=== PATIENT | male | born 1940 | race Caucasian/White ===

== ENCOUNTER 2020-06-08 10:00 | Outpatient (RCR) | payer MEDICARE, SELFPAY ==
--- NOTE | 2020-06-08 12:04 | MHC.PT.DC ---
[facility] [place] Office [place] Office [place] Office [address] Shreya Melendrez [address] [phone] F: [phone] F: [phone] F: [phone] F: [phone] Physical Therapy Discharge Report Diagnosis: Date of Surgery: injury date March 25 2020 shoulder dislocation Date of Evaluation: 05/04/20 Date of Discharge: Treatments to Date: 10 Cancellations to Date: 0 No Shows to Date: 0 Discharge Status: Discharge Summary: Pt has weakness at end range but continues to show improved activity tolerance with exercise program. Abduction and flexion continue to be most difficult. Pt has improved significantly with ROM, strength, and function objectively. At this point the patient has reached a plateau. He no longer needs skilled PT due to being independent with his HEP. He was educated to return to PT if his function does not continue to improve with his HEP. Please sign and return to therapist. Thank you for your referral.
--- NOTE | 2020-06-08 12:08 | MHC.PT.DC ---
[facility] [place] Office [place] Office [place] Office [address] Shreya Melendrez 140 [facility] [phone] F: [phone] F: [phone] F: [phone] F: [phone] Physical Therapy Discharge Report Diagnosis: Date of Surgery: injury date March 25 2020 shoulder dislocation Date of Evaluation: 05/04/20 Date of Discharge: 06/08/20 Treatments to Date: 10 Cancellations to Date: 0 No Shows to Date: 0 Discharge Status: Improved Function Independent with HEP Discharge Summary: AAROM shoulder flexion 132 PROM 145 with pain at end range. AAROM abduction 142, PROM 0-148. MMT shoulder flexion 4+/5, abduction 4/5 Pt has weakness at end range but continues to show improved activity tolerance with exercise program. Abduction and flexion continue to be most difficult. Pt has improved significantly with ROM, strength, and function objectively. At this point the patient has reached a plateau. He no longer needs skilled PT due to being independent with his HEP. He was educated to return to PT if his function does not continue to improve with his HEP. Please sign and return to therapist. Thank you for your referral.
== END 2020-06-29 07:34 | disposition other institution (70) ==
LOC: HO.PT 10:00
PROVIDERS: PCP Internal Medicine; Visit Provider Orthopaedic Surgery
DX: S43.005D Unspecified dislocation of left shoulder joint, subsequent encounter (principal); S46.002D Unspecified injury of muscle(s) and tendon(s) of the rotator cuff of left shoulder, subsequent encounter; X58.XXXD Exposure to other specified factors, subsequent encounter
CPT/HCPCS: 97110; 97530

== ENCOUNTER → 2020-06-19 09:14 | Outpatient (BNVA) | payer MEDICARE, SELFPAY | PROVIDERS: PCP Internal Medicine; Referring Provider Internal Medicine; Visit Provider Orthopaedic Surgery | DX: S43.005D Unspecified dislocation of left shoulder joint, subsequent encounter (principal) | CPT/HCPCS: 99213 ==

== ENCOUNTER 2020-06-30 07:20 | Outpatient (REF) | payer MEDICARE, SELFPAY ==
[2020-06-30 08:07] LABS: MANUAL DIFF FLAG NO
[2020-06-30 08:10] LABS: Basophils Percent Auto 0.7 % (0-2); Eosinophils Absolute Auto 0.1 X10*3/uL (0.0-0.4); Hematocrit 42.1 % (42-52); Hemoglobin 14.3 g/dl (14.0-18.0); Imm Gran Abs Auto 0.01 X10*3/uL (0.00-0.03); Imm Gran Pct Auto 0.2 % (0.0-0.4); Lymphocytes Absolute Auto 1.8 X10*3/uL (1.2-4.9); Lymphocytes Percent Auto 38.7 % (20-40); Mean Corpuscular Hemoglobin 31.1 pg (27.0-33.0); Mean Corpuscular Volume 91.5 fL (80-98); Mean Platelet Volume 9.1 fL (9.4-12.4); Monocytes Absolute Auto 0.6 X10*3/uL (0.1-1.2); Monocytes Percent Auto 13.5 % (2-11); Neutrophils Absolute Auto 2.1 X10*3/uL (2.0-8.3); Neutrophils Percent Auto 44.9 % (45-73); Platelet Count 205 X10*3/uL (160-400); Red Cell Distribution Width 12.6 % (11.0-16.0); White Blood Count 4.6 X10*3/uL (4.8-10.8)
[2020-06-30 08:38] LABS: Alanine Aminotransferase 10 U/L (0-40); Albumin Level 4.1 g/dL (3.5-5.0); Alkaline Phosphatase 50 U/L (39-117); Anion Gap 12 (12-20); Aspartate Amino Transferase 14 U/L (5-37); Bilirubin Total 1.1 mg/dL (0.0-1.0); Blood Urea Nitrogen 14 mg/dL (9-16); Calcium 8.8 mg/dL (8.4-10.2); Carbon Dioxide 27 mmol/L (22-29); Chloride 103 mmol/L (96-108); Cholesterol 188 mg/dL; Estimated Glomerular Filt Rate > 60; Glucose Fasting 105 mg/dL (60-99); HDL Cholesterol 39 mg/dL; LDL Cholesterol Calculated 123 mg/dl; Potassium 4.1 mmol/l (3.3-5.1); Sodium 138 mmol/L (135-145); Total Protein 7.1 g/dL (6.5-8.0); Triglycerides 133 mg/dL
[2020-06-30 08:58] LABS: Thyroid Stimulating Hormone 1.05 mIU/mL (0.32-4.0)
[2020-06-30 08:59] LABS: T4 Thyroxine 7.6 ug/dL (4.5-12.0)
[2020-07-01 07:47] LABS: SARS COV2 IgG Positive (Negative)
[2020-07-02 03:55] LABS: Folate 9.5 ng/mL (> or = 4.0); Vitamin B12 253 pg/mL (200-900)
== END 2020-06-30 07:21 | disposition home or self-care (01) ==
LOC: HO.LAB 07:20
PROVIDERS: Visit Provider Internal Medicine
DX: Z01.84 Encounter for antibody response examination (principal); I10 Essential (primary) hypertension; E78.00 Pure hypercholesterolemia, unspecified; E66.9 Obesity, unspecified
CPT/HCPCS: 36415; 80053; 80061; 82607; 82746; 84436; 84443; 85025; 86769

== ENCOUNTER 2021-05-08 08:18 | Outpatient (REF) | payer MEDICARE, SELFPAY ==
[2021-05-08 08:57] LABS: MANUAL DIFF FLAG NO
[2021-05-08 09:02] LABS: Basophils Percent Auto 0.6 % (0-2); Eosinophils Absolute Auto 0.1 X10*3/uL (0.0-0.4); Eosinophils Percent Auto 1.7 % (0-4); Hematocrit 42.9 % (42-52); Hemoglobin 14.4 g/dl (14.0-18.0); Imm Gran Abs Auto 0.01 X10*3/uL (0.00-0.03); Imm Gran Pct Auto 0.2 % (0.0-0.4); Lymphocytes Absolute Auto 2.1 X10*3/uL (1.2-4.9); Lymphocytes Percent Auto 39.6 % (20-40); Mean Corpuscular HGB Conc 33.6 g/dl (31.0-36.0); Mean Corpuscular Hemoglobin 31.4 pg (27.0-33.0); Mean Corpuscular Volume 93.5 fL (80-98); Mean Platelet Volume 8.8 fL (9.4-12.4); Monocytes Absolute Auto 0.7 X10*3/uL (0.1-1.2); Neutrophils Absolute Auto 2.4 X10*3/uL (2.0-8.3); Neutrophils Percent Auto 44.9 % (45-73); Platelet Count 202 X10*3/uL (160-400); Red Blood Count 4.59 X10*6/uL (4.60-5.80); Red Cell Distribution Width 12.5 % (11.0-16.0); White Blood Count 5.4 X10*3/uL (4.8-10.8)
[2021-05-08 09:36] LABS: Alanine Aminotransferase 15 U/L (0-40); Albumin Level 4.1 g/dL (3.5-5.0); Alkaline Phosphatase 50 U/L (39-117); Anion Gap 10 (12-20); Aspartate Amino Transferase 15 U/L (5-37); Bilirubin Total 0.8 mg/dL (0.0-1.0); Blood Urea Nitrogen 14 mg/dL (9-16); Calcium 9.8 mg/dL (8.4-10.2); Carbon Dioxide 29 mmol/L (22-29); Chloride 106 mmol/L (96-108); Cholesterol 214 mg/dL; Estimated Glomerular Filt Rate > 60; Glucose Random 116 mg/dL (60-115); HDL Cholesterol 42 mg/dL; LDL Cholesterol Calculated 150 mg/dl; Potassium 4.4 mmol/L (3.3-5.1); Sodium 141 mmol/L (135-145); Total Protein 7.2 g/dL (6.5-8.0); Triglycerides 112 mg/dL
[2021-05-08 09:57] LABS: Free T4 (Free Thyroxine) 1.19 ng/dL (0.71-1.85); Thyroid Stimulating Hormone 1.15 uIU/mL (0.32-4.0)
[2021-05-08 10:30] LABS: Estimated Average Glucose 108 mg/dL; Hemoglobin A1c % 5.4 %
[2021-05-08 10:50] LABS: Folate 13.6 ng/mL (> or = 4.0); Vitamin B12 213 pg/mL (200-900)
== END 2021-05-08 08:19 | disposition home or self-care (01) ==
LOC: HO.LAB 08:18
PROVIDERS: PCP Internal Medicine; Visit Provider Internal Medicine
DX: E78.00 Pure hypercholesterolemia, unspecified (principal); R73.02 Impaired glucose tolerance (oral)
CPT/HCPCS: 36415; 80053; 80061; 82607; 82746; 83036; 84439; 84443; 85025

== ENCOUNTER 2021-09-03 10:14 | Outpatient (REF) | payer MEDICARE, SELFPAY ==
[2021-09-03 12:28] LABS: Binax Internal Control QC Valid; Binax Lot number: 9864; Binax Now Covid-19 Ag Negative (Negative)
== END 2021-09-03 10:15 | disposition home or self-care (01) ==
LOC: HO.LAB 10:14
PROVIDERS: Visit Provider Internal Medicine
DX: Z20.822 Contact with and (suspected) exposure to COVID-19 (principal)
CPT/HCPCS: 36415; C9803

== ENCOUNTER 2021-09-09 09:10 | Outpatient (REF) | payer MEDICARE, SELFPAY ==
--- NOTE | ~2021-09-09 | XR_ITS ---
EXAMINATION: XR SHOULDER, LEFT CLINICAL INFORMATION: Pain COMPARISON: Previous x-ray most recent February 2020 TECHNIQUE: Three views of the left shoulder. FINDINGS: Bone alignment is normal. No fracture or dislocation is seen. There are 2 surgical tacks or anchors projecting over the left proximal humerus. There are small osteophytes at the glenohumeral and acromioclavicular joints. There is faint soft tissue calcification adjacent to the greater tuberosity. XR/XR shoulder LT min 2V IMPRESSION: Stable postsurgical changes and mild degenerative changes.
== END 2021-09-09 09:11 | disposition home or self-care (01) ==
LOC: HO.HOSX 09:10
PROVIDERS: Visit Provider Orthopaedic Surgery
DX: M12.812 Other specific arthropathies, not elsewhere classified, left shoulder (principal)
CPT/HCPCS: 73030; 99212

== ENCOUNTER 2021-11-14 13:03 | Outpatient (REF) | payer MEDICARE, SELFPAY ==
[2021-11-14 14:43] LABS: Alanine Aminotransferase 15 U/L (0-40); Albumin Level 4.2 g/dL (3.5-5.0); Alkaline Phosphatase 54 U/L (39-117); Anion Gap 12 (12-20); Aspartate Amino Transferase 14 U/L (5-37); Bilirubin Total 0.6 mg/dL (0.0-1.0); Blood Urea Nitrogen 14 mg/dL (9-16); Calcium 9.6 mg/dL (8.4-10.2); Carbon Dioxide 27 mmol/L (22-29); Chloride 104 mmol/L (96-108); Cholesterol 179 mg/dL; Estimated Glomerular Filt Rate > 60; Glucose Random 89 mg/dL (60-115); HDL Cholesterol 37 mg/dL; LDL Cholesterol Calculated 90 mg/dl; Potassium 4.4 mmol/L (3.3-5.1); Sodium 139 mmol/L (135-145); Total Protein 7.3 g/dL (6.5-8.0); Triglycerides 262 mg/dL
[2021-11-14 15:10] LABS: Folate 12.1 ng/mL (> or = 4.0); Vitamin B12 340 pg/mL (200-900)
== END 2021-11-14 13:04 | disposition home or self-care (01) ==
LOC: HO.LAB 13:03
PROVIDERS: PCP Internal Medicine; Visit Provider Internal Medicine
DX: E78.00 Pure hypercholesterolemia, unspecified (principal)
CPT/HCPCS: 36415; 80053; 80061; 82607; 82746

== ENCOUNTER 2022-08-12 09:29 | Outpatient (REF) | payer MEDICARE, SELFPAY ==
[2022-08-12 09:47] LABS: MANUAL DIFF FLAG NO
[2022-08-12 10:27] LABS: Basophils Percent Auto 0.4 % (0-2); Eosinophils Absolute Auto 0.1 X10*3/uL (0.0-0.4); Eosinophils Percent Auto 2.7 % (0-4); Hematocrit 43.4 % (42.0-52.0); Hemoglobin 14.5 g/dl (14.0-18.0); Imm Gran Abs Auto 0.01 X10*3/uL (0.00-0.03); Imm Gran Pct Auto 0.2 % (0.0-0.4); Lymphocytes Absolute Auto 1.5 X10*3/uL (1.2-4.9); Lymphocytes Percent Auto 33.2 % (20-40); Mean Corpuscular HGB Conc 33.4 g/dl (31.0-36.0); Mean Corpuscular Hemoglobin 30.9 pg (27.0-33.0); Mean Corpuscular Volume 92.5 fL (80.0-98.0); Mean Platelet Volume 9.2 fL (9.4-12.4); Monocytes Absolute Auto 0.7 X10*3/uL (0.1-1.2); Monocytes Percent Auto 14.4 % (2-11); Neutrophils Absolute Auto 2.2 x10*3/uL (2.0-8.3); Neutrophils Percent Auto 49.1 % (45-73); Platelet Count 198 X10*3/uL (160-400); Red Blood Count 4.69 X10*6/uL (4.60-5.80); Red Cell Distribution Width 12.5 % (11.0-16.0); White Blood Count 4.5 X10*3/uL (4.8-10.8)
[2022-08-12 10:40] LABS: Estimated Average Glucose 111 mg/dL; Hemoglobin A1c % 5.5 %
[2022-08-12 11:22] LABS: Alanine Aminotransferase 12 U/L (0-40); Albumin Level 4.2 g/dL (3.5-5.0); Alkaline Phosphatase 56 U/L (39-117); Anion Gap 12 (12-20); Aspartate Amino Transferase 15 U/L (5-37); Bilirubin Total 0.6 mg/dL (0.0-1.0); Blood Urea Nitrogen 14 mg/dL (9-16); Calcium 9.5 mg/dL (8.4-10.2); Carbon Dioxide 30 mmol/L (22-29); Chloride 104 mmol/L (96-108); Cholesterol 162 mg/dL; Estimated Glomerular Filt Rate > 60; Glucose Random 69 mg/dL (60-115); HDL Cholesterol 35 mg/dL; LDL Cholesterol Calculated 104 mg/dl; Potassium 4.6 mmol/L (3.3-5.1); Sodium 141 mmol/L (135-145); Triglycerides 117 mg/dL
[2022-08-12 11:29] LABS: Vitamin B12 359 pg/mL (200-900)
== END 2022-08-12 09:30 | disposition home or self-care (01) ==
LOC: HO.LAB 09:29
PROVIDERS: PCP Internal Medicine; Visit Provider Internal Medicine
DX: R73.02 Impaired glucose tolerance (oral) (principal); I10 Essential (primary) hypertension; E78.00 Pure hypercholesterolemia, unspecified
CPT/HCPCS: 36415; 80053; 80061; 82607; 82746; 83036; 84443; 85025

== ENCOUNTER 2023-03-18 10:36 | Emergency (ER) | payer MEDICARE, SELFPAY ==
--- NOTE | ~2023-03-18 | XR_ITS ---
EXAMINATION: XR LUMBOSACRAL SPINE CLINICAL INFORMATION: Back pain COMPARISON: None available. TECHNIQUE: Three views of the lumbosacral spine. FINDINGS: Normal alignment and lumbar lordosis. No fracture. Mild to moderate multilevel degenerative disc disease with prominent endplate osteophytes. XR/XR lumbar spine 2-3V IMPRESSION: Mild to moderate multilevel degenerative disc disease. Normal alignment. No fracture.
[2023-03-18 10:41] VITALS: BP 140/76; PULSE 64; RESP 18; TEMP 37.1; O2SAT 98; BMI 29.8
--- NOTE | 2023-03-18 11:25 | ED_ITS ---
HPI - General Adult General Chief complaint: Back Pain/Injury Stated complaint: Lower Back Pain No Injury Time Seen by Provider: 03/18/23 11:25 Source: patient Mode of arrival: ambulatory Limitations: no limitations History of Present Illness HPI narrative: Patient is an 82 year old assigned male at with a history of HTN presenting to the emergency department today with low back pain. Patient states that he just got back from a visit to [place] that involved a lot of driving and his low back has been painful. Patient denies any dizziness, lightheadedness, abdominal pain, nausea, vomiting, fever, chills, blurry vision, double vision, loss of vision, chest pain, difficulty breathing, shortness of breath, night sweats, pain with urination, increased urinary frequency, increased urinary urgency, blood in his urine or stool, syncope or a near syncopal episode, recent trauma or falls, bowel incontinence, bladder incontinence, bowel retention, bladder retention, or any other complaints at this time. Onset (ago): day(s) (4) Location: back Radiation: non-radiation Severity: mild Severity scale (1-10): 3 Quality: aching and dull Pain Consistency: constant Relieving factors: none Exacerbating factors: movement Associated symptoms: denies other symptoms Treatments prior to arrival: none Related Data Previous Rx's Medication Instructions Recorded metoprolol succinate 25 mg 25 mg PO DAILY #90 tabs 08/12/22 tablet,extended release 24 hr metoprolol succinate 50 mg 50 mg PO DAILY 90 days #90 tabs 08/12/22 tablet,extended release 24 hr lisinopril 40 mg tablet 40 mg PO DAILY #90 tabs 10/14/22 simvastatin 20 mg tablet 20 mg PO BEDTIME #90 tabs 10/14/22 cyclobenzaprine 5 mg tablet 5 mg PO TID PRN muscle spasm 7 03/18/23 days #21 tabs naproxen 500 mg tablet 500 mg PO BID 7 days #14 tabs 03/18/23 prednisone 20 mg tablet 20 mg PO DAILY 7 days #7 tabs 03/18/23 Allergies Allergy/AdvReac Type Severity Reaction Status Date / Time No Known Allergies Allergy Mild NKA Verified 12/04/22 10:25 Review of Systems Constitutional: Constitutional: Reports no additional constitutional complaints, Denies chills, Denies fever(s) and Denies night sweats Eyes: Eyes: Reports no additional eye complaints, Denies blurry vision, Denies change in vision, Denies diplopia, Denies eye discharge, Denies loss of vision and Denies eye pain ENT: Denies dizziness Cardiovascular: Cardiovascular: Reports no additional cardiovascular complaints, Denies chest pain, Denies lightheadedness, Denies Loss of Consciousness and Denies dyspnea Respiratory: Respiratory: Reports no additional respiratory complaints and Denies dyspnea Gastrointestinal: Gastrointestinal: Reports no additional gastrointestinal complaints, Denies abdominal pain, Denies melena, Denies hematochezia, Denies change in bowel habits and Denies change in stool character Genitourinary: Genitourinary: Reports no additional male genitourinary complaints, Denies hematuria, Denies oliguria, Denies difficulty urinating, Denies dysuria, Denies urinary frequency, Denies urinary hesitancy, Denies urinary incontinence and Denies urinary urgency Musculoskeletal: Musculoskeletal: Reports no additional musculoskeletal complaints, Reports back pain, Denies numbness and Denies tingling Neurologic: Denies dizziness, Denies loss of vision, Denies numbness and Denies tingling Psychiatric: Psychiatric: Reports no additional psychiatric complaints Endocrine: Endocrine: Reports no additional endocrine complaints Hematologic/Lymphatic: Hematologic/Lymphatic: Reports no additional hematologic/lymphatic complaints Allergic/Immunologic: Allergic/Immunologic: Reports no additional allergic/immunologic complaints PMF Past Medical History Attestation statement: The following information was validated with the patient. Source: old records reviewed and nursing notes reviewed Medical History Annual physical exam Anxiety and depression Bilateral shoulder pain COVID-19 virus infection Dislocation of shoulder, left, closed Erectile dysfunction Hypercholesterolemia Hypertension Impaired glucose tolerance Low back pain Obesity (BMI 30-39.9) Rotator cuff rupture Tubular adenoma of colon Urinary frequency Vitamin D deficiency Surgical History H/O left knee surgery H/O prostatectomy History of rhinoplasty History of tonsillectomy S/P rotator cuff repair Family History Family History Father Acute leukemia Mother No problems noted. Social History Social History Housing: House Alcohol intake: former Patient Tobacco Use Status: Never used Tobacco Smoked in Last 30 Days: No e-Cigarette/Vaping Use: Never Used Second Hand Smoke Exposure: No Use of substances other than those prescribed or required for medical reasons: No Advance Directives: Yes Advance Directives on File: Yes Advance Directives Date on File: 06/01/20 Current occupational status: retired Cognitive needs: No Hearing needs: No Vision needs: No Physical Exam ED Vital Signs: Vital Signs - 24 hr 03/18/23 10:41 03/18/23 13:24 Temperature 98.7 F 97.1 F Pulse Rate 64 68 Respiratory Rate 18 16 Blood Pressure 140/76 H 137/91 H Pulse Oximetry 98 98 Oxygen Delivery Method Room Air Room Air BMI result Body Mass Index 29.8 Const General: cooperative, no acute distress, alert and awake Nutritional Appearance: well nourished Orientation/consciousness: patient oriented x3 Limitations: no limitations HENMT Head: Yes normal to inspection and Yes atraumatic Ears: hearing grossly normal bilaterally and external ears normal General nose exam: Normal external nose present, no nasal discharge noted and no epistaxis Face and sinus: Yes normal facial exam, No abrasion and No laceration Mouth: Normal oral and palatal mucosa present, no drooling and no muffled voice Eyes General: appearance normal, both eyes and all related structures Periorbital: periorbital findings normal Eyelids: Yes eyelids normal Conjunctivae: conjunctivae normal Pupils: Equal, round and reactive pupils present EOM: EOMs intact bilaterally Neck Neck: Yes normal visual inspection, Yes full ROM and Yes no lymphadenopathy Chest Chest palpation & inspection: normal inspection of the chest Resp Effort & Inspection: normal respiratory effort and able to speak in complete sentences GI Inspection: Yes normal to inspection General: Yes no CVA tenderness Back/Spine/Pelvis Back: no CVA tenderness Cervical Spine: normal cervical lordosis and cervical ROM normal Thoracic/Lumbar Spine: thoraco-lumbar ROM normal Neuro General: patient oriented x3 and moves all extremities Cranial nerves: Yes Equal, round and reactive pupils present Cognition (Neuro): normal cognition Motor exam (neuro): 5/5 motor strength present throughout Sensory Exam: Normal double simultaneous stimulation for sensation Coordination: [id number] test normal Extrem General: Yes normal to inspection, Yes full ROM and Yes capillary refill normal Psych Appearance: grossly normal Mental Status: mental status grossly normal Affect: normal affect Attitude: cooperative Thought process: Normal thought process present Thought content: Normal thought content present Insight: Good insight present (Psych) Medications Administered Discontinued Medications Generic Name Dose Route Start Last Admin Trade Name Luis PANTOJA Reason Stop Dose Admin Cyclobenzaprine HCl 5 mg 03/18/23 13:05 03/18/23 13:17 Cyclobenzaprine Hcl 5 Mg Tablet PO 03/18/23 13:06 5 mg ONCE ONE Administration Ketorolac Tromethamine 15 mg 03/18/23 13:05 03/18/23 13:37 Ketorolac Tromethamine 15 Mg/Ml Vial IM 03/18/23 13:06 Not Given ONCE ONE Prednisone 20 mg 03/18/23 13:05 03/18/23 13:17 Prednisone 20 Mg Tablet PO 03/18/23 13:06 20 mg ONCE ONE Administration Medical Decision Making Medical Decision Making MDM Narrative: Patient is an 82 year old assigned male at with a history of HTN presenting to the emergency department today with low back pain. Patient's physical exam was unremarkable. Patient's lumbar spine x-ray showed no acute process. I explained my physical exam findings as well as all test results to the patient. I answered all questions asked by the patient. Patient received PO Flexeril and PO Prednisone which he stated helped his symptoms significantly. I stressed the importance of the patient taking his medication as prescribed. I stressed the importance of the patient following up with his primary care provider. I stressed the importance of the patient returning to the emergency department immediately if his symptoms were to worsen or if he were to develop any dizziness, shortness of breath, difficulty breathing, chest pain, blurry vision, loss of vision, nausea, vomiting, abdominal pain, fever, chills, worsening back pain, or any other complaints. Patient verbalized agreement and understanding with this treatment plan and discharge. Differential Diagnosis Differential Diagnoses: The differential diagnosis associated with the presentation includes Low back pain Muscle sprain Muscle strain Sciatica Osteoarthritis Degenerative disc disease Herniated disc Muscle spasm Independent Interpretation I performed an independent interpretation of an: Plain X-Ray Interpretation: My interpretation is in agreement with the radiologist's impression of this imaging study. EXAMINATION: XR LUMBOSACRAL SPINE CLINICAL INFORMATION: Back pain COMPARISON: None available. TECHNIQUE: Three views of the lumbosacral spine. FINDINGS: Normal alignment and lumbar lordosis. No fracture. Mild to moderate multilevel degenerative disc disease with prominent endplate osteophytes. XR/XR lumbar spine 2-3V IMPRESSION: Mild to moderate multilevel degenerative disc disease. Normal alignment. No fracture. Dictated By: Vignesh Black MD Signed By: Electronically signed by Vignesh Black MD 03/18/23 5478 Radiology Impression Discussion of test interpretation with radiology: I have reviewed the radiologist's reading. Prescription Management I considered prescription management with: Pain Medication (patient prescribed flexeril and prednisone.) Chronic Conditions Patient?s care impacted by: Hypertension Discharge Plan Discharge Clinical Impression: Low back pain Patient Disposition: Home, Self-Care Instructions: Back Pain (ED) Additional Instructions: Follow up with your primary care provider. Return to the emergency department immediately if your symptoms worsen or if you develop any dizziness, shortness of breath, difficulty breathing, chest pain, blurry vision, loss of vision, naus ea, vomiting, abdominal pain, fever, chills, back pain, or any other complaints. Prescriptions: New cyclobenzaprine 5 mg tablet 5 mg PO TID PRN (Reason: muscle spasm) 7 Days Qty: 21 0RF prednisone 20 mg tablet 20 mg PO DAILY 7 Days Qty: 7 0RF naproxen 500 mg tablet 500 mg PO BID 7 Days Qty: 14 0RF No Action lisinopril 40 mg tablet 40 mg PO DAILY Qty: 90 2RF simvastatin 20 mg tablet 20 mg PO BEDTIME Qty: 90 3RF metoprolol succinate 25 mg tablet extended release 24 hr 25 mg PO DAILY Qty: 90 3RF Rx Instructions: Take 25 mg together with 50 mg equal 75 mg metoprolol succinate 50 mg tablet extended release 24 hr 50 mg PO DAILY 90 Days Qty: 90 3RF Rx Instructions: 50 mg + 25 mg = 75 mg QD Referrals: Cody Boston MD [Primary Care Provider] - Interventions: ED Discharge Assessment Last Done: 03/18/23 13:37 Discharge Date/Time: 03/18/23 13:37 Print Language: Icelandic
[2023-03-18] MEDS: Cyclobenzaprine HCl 5 MG TABLET PO (13:17)
[2023-03-18] MEDS: predniSONE 20 MG TABLET PO (13:17)
[2023-03-18 13:24] VITALS: BP 137/91; PULSE 68; RESP 16; TEMP 36.2; O2SAT 98
== END 2023-03-18 13:37 | disposition home or self-care (01) ==
PROVIDERS: Emergency Provider Emergency Medicine; PCP Internal Medicine
DX: M54.50 Low back pain, unspecified (principal)
CPT/HCPCS: 72100; 99283; 99284; J1885

== ENCOUNTER 2023-04-08 07:22 | Emergency (ER) | payer MEDICARE, SELFPAY ==
--- NOTE | ~2023-04-08 | XR_ITS ---
EXAMINATION: XR HIP, RIGHT CLINICAL INFORMATION: Right hip pain COMPARISON: None available. TECHNIQUE: 2 views of the right hip single view of the pelvis FINDINGS: No acute visible fracture or dislocation. 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 Suggestion of a 6 mm loose body along the superolateral margin of the right femoral acetabular joint. Degenerative changes of the lower and lumbar lumbosacral spine. Bowel gas unremarkable. Pelvic phleboliths are noted. Soft tissues are unremarkable. XR/XR hip RT w PEL1V IMPRESSION: 1. No acute visible fracture or dislocation. 2. 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 3. Suggestion of a 6 mm loose body along the superolateral margin of the right femoral acetabular joint.
[2023-04-08 07:54] VITALS: BP 134/83; PULSE 71; RESP 18; TEMP 36.7; O2SAT 97; BMI 30.5
[2023-04-08 08:05] VITALS: BP 134/83; PULSE 94; RESP 18
--- NOTE | 2023-04-08 08:07 | PC.NURSE ---
Patient alert and oriented. states yesterday morning started having right hip/groin pain. was here x 1 month ago for same pain. States walked all over [place] yesterday and pain became worse. States pain is only on the right side of his hip and extends into his groin area. Gait steady, able to stand on left leg and raise right leg. Denies sob, headache, chest pain.
--- NOTE | 2023-04-08 08:36 | ED_ITS ---
[facility] - General Adult General Chief complaint: General Medical Stated complaint: R side back pain/leg pain Time Seen by Provider: 04/08/23 07:55 Source: patient Mode of arrival: ambulatory History of Present Illness HPI narrative: 82-year-old male who presents here with atraumatic right gluteal/hip discomfort that is not associated with fever, chills, nausea, vomiting, changes in urinary symptoms, constipation/diarrhea. Related Data Previous Rx's Medication Instructions Recorded metoprolol succinate 25 mg 25 mg PO DAILY #90 tabs 08/12/22 tablet,extended release 24 hr metoprolol succinate 50 mg 50 mg PO DAILY 90 days #90 tabs 08/12/22 tablet,extended release 24 hr lisinopril 40 mg tablet 40 mg PO DAILY #90 tabs 10/14/22 simvastatin 20 mg tablet 20 mg PO BEDTIME #90 tabs 10/14/22 cyclobenzaprine 5 mg tablet 5 mg PO TID PRN muscle spasm 7 03/18/23 days #21 tabs naproxen 500 mg tablet 500 mg PO BID 7 days #14 tabs 03/18/23 prednisone 20 mg tablet 20 mg PO DAILY 7 days #7 tabs 03/18/23 Allergies Allergy/AdvReac Type Severity Reaction Status Date / Time No Known Allergies Allergy Mild NKA Verified 04/08/23 07:57 Review of Systems Review of Systems: Pertinent positives and negatives as stated in [facility] Past Medical History Source: nursing notes reviewed Medical History Annual physical exam Anxiety and depression Bilateral shoulder pain COVID-19 virus infection Dislocation of shoulder, left, closed Erectile dysfunction Hypercholesterolemia Hypertension Impaired glucose tolerance Low back pain Obesity (BMI 30-39.9) Rotator cuff rupture Tubular adenoma of colon Urinary frequency Vitamin D deficiency Surgical History H/O left knee surgery H/O prostatectomy History of rhinoplasty History of tonsillectomy S/P rotator cuff repair Family History Family History Father Acute leukemia Mother No problems noted. Social History Social History Housing: House Alcohol intake: former Patient Tobacco Use Status: Never used Tobacco e-Cigarette/Vaping Use: Never Used Second Hand Smoke Exposure: No Advance Directives: Yes Advance Directives on File: Yes Advance Directives Date on File: 06/01/20 Current occupational status: retired Cognitive needs: No Hearing needs: No Vision needs: No Physical Exam ED Vital Signs: Vital Signs - 24 hr 04/08/23 07:54 04/08/23 08:05 Temperature 98.0 F Pulse Rate 71 94 Respiratory Rate 18 18 Blood Pressure 134/83 134/83 Pulse Oximetry 97 Oxygen Delivery Method Room Air Room Air Nasal Cannula BMI result Body Mass Index 30.5 VITAL SIGNS: Reviewed. GENERAL: Well developed, well nourished, in no acute distress. HEAD: Normocephalic/atraumatic EYES: PERRLA, EOMI EARS: Ext canals without abnormality NOSE: Nares patent bilateral OROPHARYNX: no oral lesions noted, posterior pharynx clear NECK: Supple, no adenopathy LUNGS: Normal breath sounds. No adventitious sounds or accessory muscle use. SpO2<97> CARDIOVASCULAR: Regular rate and rhythm without noted murmurs, no JVD or lower extremity edema. ABDOMEN: Soft, non-tender, non-distended with bowel sounds. PELVIS: Stable, nontender, no tenderness to palpation over right iliac. MUSCULOSKELETAL: No tenderness, deformities, or effusions noted on gross i nspection. EXTREMITIES: No cyanosis, clubbing or edema. RLE: There is or tenderness over the superior gluteus as well as greater trochanter, there is full range of motion at the hip and knee without difficulty SKIN: Inspection of the skin reveals no rashes NEUROLOGIC: Alert and oriented x 4. Strength and sensation to light touch were grossly intact x 4. Medications Administered Discontinued Medications Generic Name Dose Route Start Last Admin Trade Name Freq PRN Reason Stop Dose Admin Acetaminophen 975 mg 04/08/23 08:25 04/08/23 08:41 Acetaminophen 325 Mg Tablet PO 04/08/23 08:26 975 mg ONCE ONE Administration Ibuprofen 400 mg 04/08/23 08:25 04/08/23 08:41 Ibuprofen 400 Mg Tablet PO 04/08/23 08:26 400 mg ONCE ONE Administration Lidocaine 1 patch 04/08/23 08:25 04/08/23 08:41 Lidocaine 4 % Patch Adh..Patch TRANSDERMA 04/08/23 08:26 1 patch ONCE ONE Administration Protocol Medical Decision Making Medical Decision Making [facility] Narrative: 82-year-old male with history and clinical presentation, DDX: Arthritis, bursitis, musculoskeletal, lumbar radiculopathy, less likely felt to be sciatica and no clinical suspicion for infectious etiologies such as diverticulitis /appendicitis/bowel obstruction/hernia. I reviewed all investigations, urinalysis is negative for evidence of UTI trace positive blood likely secondary to prostatic mild bleeding, hip/pelvis x-ray ne gative for fracture or dislocation, however my interpretation is in agreement with radiology's impression that there does appear to be a loose body within the superior lateral margin of the right femoral acetabular joint that may be contributing to patient's symptoms although on palpation he has point tenderness at the mid superior gluteus. Will provide patient with referral to his primary care doctor as well as Orthopedics. Patient was given combination analgesics and is otherwise discharged home and results were discussed with him at bedside. Differential Diagnosis Differential Diagnoses: The differential diagnosis associated with the presentation includes Please see the discussion above Admission/Observation Consideration of admission/observation: Escalation of care including admission/observation considered Please see the discussion above Lab Data [facility] Lab Attestation statement: I reviewed the patient's lab results. Please see the discussion above Labs: Lab Results 04/08/23 Range/Units 08:31 Urine Color Yellow Urine Appearance Clear Urine pH 5.5 (5.0-9.0) Ur Specific [place] 1.015 (1.005-1.025) Urine Protein Negative (Neg-Trace) mg/dL Urine Glucose (UA) Negative (Negative) mg/dL Urine Ketones Negative (Negative) mg/dL Urine Blood Small (1+) H (Negative) Urine Nitrite Negative (Negative) Ur Leukocyte Esterase Negative (Negative) Urine RBC 0-2 (0-2) /HPF Urine WBC 0-5 (0-5) /HPF Ur Squamous Epith Cells 0-2 (0-2) /HPF Urine Bacteria None Seen (None Seen) Hyaline Casts 0-2 (0-2) /LPF Radiology Impression Discussion of test interpretation with radiology: I have reviewed the radiologist's reading. Radiologist Impression: Please see the discussion above External Record Review External record reviewed: Outpatient record and Prior outpatient labs Chronic Conditions Patient?s care impacted by: Hypertension Discharge Plan Discharge Clinical Impression: Arthritis, hip Patient Disposition: Home, Self-Care Instructions: Osteoarthritis (ED) Additional Instructions: It appears you may have a loose foreign body in portion of your hip joint, you will need to follow-up with your primary care provider and a referral for Orthopedics is been provided below. In the meantime please take [id number] Tylenol/ibuprofen and consider the use of a lidocaine patch (this is available [id number] as well) for pain relief. Return to the ER for any worsening symptoms. Prescriptions: No Action lisinopril 40 mg tablet 40 mg PO DAILY Qty: 90 2RF simvastatin 20 mg tablet 20 mg PO BEDTIME Qty: 90 3RF cyclobenzaprine 5 mg tablet 5 mg PO TID PRN (Reason: muscle spasm) 7 Days Qty: 21 0RF prednisone 20 mg tablet 20 mg PO DAILY 7 Days Qty: 7 0RF naproxen 500 mg tablet 500 mg PO BID 7 Days Qty: 14 0RF metoprolol succinate 25 mg tablet extended release 24 hr 25 mg PO DAILY Qty: 90 3RF Rx Instructions: Take 25 mg together with 50 mg equal 75 mg metoprolol succinate 50 mg tablet extended release 24 hr 50 mg PO DAILY 90 Days Qty: 90 3RF Rx Instructions: 50 mg + 25 mg = 75 mg QD Referrals: Po,Cody Virk MD [Primary Care Provider] - Gustavo Gonzales MD [Physician] -
[2023-04-08] MEDS: Ibuprofen 400 MG TABLET PO (08:41)
[2023-04-08] MEDS: Acetaminophen 325 MG TABLET 975 MG PO (08:41)
[2023-04-08] MEDS: Lidocaine 4 % Patch ADH..PATCH 1 PATCH TRANSDERMA (08:41)
[2023-04-08 08:48] LABS: Appearance Urine Clear; Color Urine Yellow; Glucose Urine UA Negative (Negative); Leukocyte Esterase Urine Negative (Negative); Nitrite Urine Negative (Negative); PH 5.5 (5.0-9.0); Specific Gravity - Urine 1.015 (1.005-1.025); UMIC TRIGGER UACC YES; Urine Blood Small (1+) (Negative); Urine Ketones Negative (Negative); Urine Protein Negative (Neg-Trace)
[2023-04-08 08:56] LABS: Bacteria Urine None Seen (None Seen); Hyaline Casts Urine 0-2 /LPF (0-2); RBC Urine 0-2 /HPF (0-2); Squamous Epithelial Cell Urine 0-2 /HPF (0-2); WBC Urine 0-5 /HPF (0-5)
--- NOTE | 2023-04-08 09:49 | PC.NURSE ---
Discharge plan reviewed with patient who verbalized understanding understanding
== END 2023-04-08 09:54 | disposition home or self-care (01) ==
PROVIDERS: Emergency Provider Student in an Organized Health Care Education/Training Program; PCP Internal Medicine
DX: M54.50 Low back pain, unspecified (principal); M16.11 Unilateral primary osteoarthritis, right hip; Z79.899 Other long term (current) drug therapy
CPT/HCPCS: 73502; 81001; 99283; 99284

== ENCOUNTER 2023-04-14 08:57 | Outpatient (AMB) | payer MEDICARE, SELFPAY ==
[2023-04-14 09:28] VITALS: BMI 30.5
--- NOTE | 2023-04-14 09:28 | A.OFFVIS_ITS ---
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 The patient did undergo left total hip replacement surgery years ago by Dr. Dale. He reports minimal discomfort in his left knee. He describes his right knee pain as severe and sharp in nature, 10/10. His right knee pain has gotten worse over the last few years in spite of continued non operative treatments. He has done physical therapy for 12 weeks over the last 6 months which aggravated his pain. He has also tried Tylenol and anti-inflammatory medicines which gave him minimal relief. He has had multiple injections. The most recent injection gave him no relief. The patient also reports intermittent discomfort along the lateral aspect of his right hip. He denies any locking or giving way. He states that this point his hip discomfort is tolerable to him. The patient has difficulty walking even short distances because of his right knee pain. At this point his right knee is interfering with his activities of daily living and his ability to sleep well through Allergies No Known Allergies Allergy (Mild, Verified 04/14/23 09:41) NKA Medication List - Last Reconciled 04/14/23 by Gustavo Gonzales MD cyclobenzaprine 5 mg PO TID PRN 7 days lisinopril 40 mg PO DAILY metoprolol succinate ER 25 mg PO DAILY metoprolol succinate ER 50 mg PO DAILY 90 days naproxen 500 mg PO BID 7 days prednisone 20 mg PO DAILY 7 days simvastatin 20 mg PO BEDTIME [facility] Medical History Annual physical exam Anxiety and depression Bilateral shoulder pain COVID-19 virus infection Dislocation of shoulder, left, closed Erectile dysfunction Hypercholesterolemia Hypertension Impaired glucose tolerance Low back pain Obesity (BMI 30-39.9) Rotator cuff rupture Tubular adenoma of colon Urinary frequency Vitamin D deficiency Surgical History H/O left knee surgery H/O prostatectomy History of rhinoplasty History of tonsillectomy S/P rotator cuff repair Family History Father Acute leukemia Mother No problems noted. Social History Housing: House Alcohol intake: former Patient Tobacco Use Status: Never used Tobacco e-Cigarette/Vaping Use: Never Used Second Hand Smoke Exposure: No Advance Directives Date on File: 06/01/20 Current occupational status: retired Cognitive needs: No Hearing needs: No Vision needs: No Physical Exam Vital Signs: BMI result Body Mass Index 30.5 Const Other: Well-nourished well-developed very friendly male awake alert and oriented x3 in no acute distress Extrem Other: Bilateral lower extremity examination shows good capillary refill, no skin lesions noted, normal sensation light touch Right hip examination shows minimal discomfort with range of motion, tenderness over his bursa, no overlying skin lesions Right knee examination shows a mild effusion, palpable crepitus with range of motion, pain with range of motion, range of motion from -3 degrees to 115 degrees, no instability Results Reviewed Results Reviewed: X-rays of the patient's right hip taken on 04/08/2023 show mild diffuse joint space narrowing, no acute bony abnormalities X-rays of the patient's right knee taken today show severe joint space narrowing most significant in the patellofemoral joint, subchondral sclerosis, no acute bony abnormalities Assessment & Plan Assessment & Plan (1) Arthritis of right knee: Code(s): M17.11 - Unilateral primary osteoarthritis, right knee Plan: Mr. Mathews presents with right knee pain due to end-stage degenerative joint disease as well as right hip discomfort due to greater trochanteric bursitis. I had a lengthy discussion with the patient regarding the treatment options. At this point the patient has failed continued non operative treatments. The risks and benefits of right total knee replacement surgery were discussed at length with the patient. We had a discussion regarding implant in bearing options. We had a detailed discussion of the advantages and limitations of the specific implant designs, materials and bearing surfaces. All questions were answered to the patient's satisfaction. The patient wishes to proceed with surgery. Because the patient's symptoms are severe and intractable we will schedule surgery for as soon as possible. Coronavirus precautions will be taken. I will see the patient back 2-3 weeks following his surgery for his 1st postoperative appointment. The patient will follow-up as instructed. Feel free to call me at any time should questions regarding his orthopedic management arise. Thank you very much for asking me to see this very friendly patient. I spent 22 minutes in reviewing the patient's records and imaging studies, seeing the patient and documenting in the medical record. Orders: Orders XR knee RT 3V Today M17.11 - Unilateral primary osteoarthritis, right knee Coding Level of Care Code New Pt Level 2 (80500) Diagnoses Arthritis of right knee M17.11
== END 2023-04-14 10:19 | disposition home or self-care (01) ==
PROVIDERS: PCP Internal Medicine; Visit Provider Orthopaedic Surgery
DX: M17.11 Unilateral primary osteoarthritis, right knee (principal)
CPT/HCPCS: 99202

== ENCOUNTER 2023-04-14 08:57 | Outpatient (REF) | payer MEDICARE, SELFPAY ==
--- NOTE | ~2023-04-14 | XR_ITS ---
EXAMINATION: XR KNEE, RIGHT CLINICAL INFORMATION: Unilateral primary osteoarthritis. COMPARISON: None available. TECHNIQUE: AP, lateral and sunrise views of the right knee are submitted. FINDINGS: Bony alignment and mineralization are normal. The lateral, medial and patellofemoral joint space compartments are well-maintained. There is no fracture, dislocation or significant joint effusion. No foreign body is seen. There are atherosclerotic calcifications. XR/XR knee RT 3V IMPRESSION: Unremarkable right knee.
== END 2023-04-14 08:58 | disposition home or self-care (01) ==
LOC: HO.HOSX 08:57
PROVIDERS: PCP Internal Medicine; Visit Provider Orthopaedic Surgery
DX: M17.11 Unilateral primary osteoarthritis, right knee (principal)
CPT/HCPCS: 73562; 99202

== ENCOUNTER → 2023-04-29 12:36 | Outpatient (BNVA) | payer MEDICARE, SELFPAY | PROVIDERS: PCP Internal Medicine; Visit Provider Orthopaedic Surgery ==

== ENCOUNTER 2023-05-21 10:54 | Outpatient (AMB) | payer MEDICARE, SELFPAY ==
[2023-05-21 11:02] VITALS: BMI 30.5
--- NOTE | 2023-05-21 11:02 | MHC.OFFVIS ---
Intake Vital Signs 05/21/23 11:02 Height 6 ft Weight 225 lb BMI 30.5 Intake Visit Reasons: Preop RT TKA 05/25/23 DR Finch Note: Saulo is a 82 year old male who presents today for a pre op appointment for his right TKA, 05/25/23 Patient reports - . Allergies No Known Allergies Allergy (Mild, Verified 05/21/23 11:09) JOHNNIE BOBBY Preop RT TKA 05/25/23 DR BOBBY Details 82-year-old male who presents in the office today for his preoperative history and physical exam prior to a right total knee arthroplasty to be performed on 05/25/[address] Gonzales. Patient states he discontinued drinking beer about 6-7 years ago. Patient has no known allergy history. Patient is currently taking, as follows: -Acetaminophen 650 mg PO Q6H PRN -Lisinopril 40 mg PO daily -Metoprolol succinate ER 75 mg PO daily -Simvastatin 20 mg PO daily Patient has a medical history, as follows: -Blind left eye -Anxiety -Depression -Vitamin D deficiency -Tubular adenoma of colon -Hypercholesterolemia -Hypertension -Erectile dysfunction Patient has a surgical history, as follows: -Hx of cataract extraction; left eye -Hx of colonoscopy; Dr Martel -History of prostatectomy; laser August 2016 Dr. Mehta -History of left knee arthroplasty; Dr. Christian Mayorga -History of rhinoplasty -History of tonsillectomy -History of rotator cuff repair; [address] Diaz, right shoulder Dr. Mayorga October 2008 [facility] Medical History (Updated 05/18/23 @ 12:19 by Radha Garcia, IRAJ) Blind left eye Bilateral shoulder pain Low back pain Annual physical exam Rotator cuff rupture COVID-19 virus infection Anxiety and depression Obesity (BMI 30-39.9) Vitamin D deficiency Impaired glucose tolerance Tubular adenoma of colon Hypercholesterolemia Hypertension Dislocation of shoulder, left, closed Urinary frequency Erectile dysfunction Surgical History (Updated 05/18/23 @ 12:40 by Radha Garcia, IRAJ) Hx of cataract extraction Hx of colonoscopy H/O prostatectomy H/O left knee surgery History of rhinoplasty History of tonsillectomy S/P rotator cuff repair Family History Father Acute leukemia Mother No problems noted. Social History Household Members: None Housing: Apartment Are you a primary insurance healthcare representative to a significant other at home: No Do you presently have visiting nurse or other home services: No Alcohol intake: former Patient Tobacco Use Status: Never used Tobacco e-Cigarette/Vaping Use: Never Used Second Hand Smoke Exposure: No Advance Directives Date on File: 06/01/20 Current occupational status: retired Cognitive needs: No Hearing needs: No Vision needs: No Review of Systems Const All systems reviewed & are unremarkable except as noted in HPI and below Physical Exam Vital Signs: BMI result Body Mass Index 30.5 Const Other: Well-nourished well-developed very friendly male awake alert and oriented x3 in no acute distress General: cooperative, healthy appearing, comfortable, no acute distress, well developed, alert and awake Orientation/consciousness: patient oriented x3 HEENT Head: Yes normal to inspection, Yes normocephalic and Yes atraumatic Eyes General: appearance normal, both eyes and all related structures Neck Neck: Yes normal visual inspection and Yes no lymphadenopathy Resp Effort & Inspection: normal respiratory effort and able to speak in complete sentences Cardio Rate: regular rate Peripheral pulses: Peripheral pulses 2+ throughout GI Inspection: Yes normal to inspection Palpation (GI): Soft to palpation Skin General skin exam: no rashes or lesions noted Neuro General: patient oriented x3 Extrem Other: Bilateral lower extremity examination shows good capillary refill, no skin lesions noted, normal sensation light touch Right hip examination shows minimal discomfort with range of motion, tenderness over his bursa, no overlying skin lesions Right knee examination shows a mild effusion, palpable crepitus with range of motion, pain with range of motion, range of motion from -3 degrees to 115 degrees, no instability Psych Mental Status: mental status grossly normal Assessment & Plan Assessment & Plan (1) Arthritis of right knee: Code(s): M17.11 - Unilateral primary osteoarthritis, right knee Plan Mr. Mathews is an 82-year-old male who presents in the office today for his preoperative history and physical exam prior to a right total knee arthroplasty to be performed on 05/25/[address] Gonzales. Patient has no known allergy history. Patient is currently taking, as follows: -Acetaminophen 650 mg PO Q6H PRN -Lisinopril 40 mg PO daily -Metoprolol succinate ER 75 mg PO daily -Simvastatin 20 mg PO daily Patient has a medical history, as follows: -Blind left eye -Anxiety -Depression -Vitamin D deficiency -Tubular adenoma of colon -Hypercholesterolemia -Hypertension -Erectile dysfunction Patient has a surgical history, as follows: -Hx of cataract extraction; left eye -Hx of colonoscopy; Dr Martel -History of prostatectomy; laser August 2016 Dr. Mehta -History of left knee arthroplasty; Dr. Christian Mayorga -History of rhinoplasty -History of tonsillectomy -History of rotator cuff repair; [address] Diaz, right shoulder Dr. Mayorga October 2008 I discussed in detail the procedure and what to expect pre and post operatively. We discussed the risks, benefits and alternatives to the surgery as well as the rehabilitation course. The risks; which include, but are not limited to infection, bleeding, nerve injury, ongoing pain, swelling, and stiffness, perioperative risk of injury to bones and soft tissues, and blood clots. I have answered all questions and with their understanding they have consented to move forward with a right total knee arthroplasty to be performed on 05/25/[address] Gustavo Gonzales. Follow up will be at the post operative appointment on 06/11/2023 at 1:15 pm, or sooner if needed. Patient Instructions: Scribed for Lety Hatfield PA-C by Cheryl Bermeo medical insurance collector, on 05/21/2023 at 10:56 am, EST. Coding Level of Care Code Global (04189) Diagnoses Arthritis of right knee M17.11
== END 2023-05-21 12:08 | disposition home or self-care (01) ==
PROVIDERS: PCP Internal Medicine; Visit Provider Physician Assistant
DX: M17.11 Unilateral primary osteoarthritis, right knee (principal)
CPT/HCPCS: 99024

== ENCOUNTER → 2023-05-21 10:54 | Outpatient (BNVA) | payer MEDICARE, SELFPAY | PROVIDERS: PCP Internal Medicine; Visit Provider Physician Assistant ==

== ENCOUNTER 2023-05-22 11:45 | Outpatient (AMB) | payer MEDICARE, SELFPAY ==
[2023-05-22 11:46] VITALS: BP 132/70; PULSE 60; O2SAT 96; BMI 30.4
--- NOTE | 2023-05-22 11:46 | A.OFFPC_ITS ---
Vital Signs 05/22/23 11:46 Height 6 ft Weight 224 lb BMI 30.4 BP 132/70 Blood Pressure Location Lt brachial Position Sitting Pulse 60 Pulse Source Pulse Oximeter Temp Source Skin Pulse Oximetry (%) 96 Oxygen Delivery Method Room Air Intake Visit Reasons: 05/25/23 Right total Knee Replacement Intake Note: Patient is here for a Pre-op for Right Total Knee Replacement scheduled with Gustavo Gonzales on 05/25/23. Ste[facility] House Supervisor Required: No Allergies No Known Allergies Allergy (Mild, Verified 05/22/23 11:59) NKA Medication List - Last Reconciled 05/22/23 by RITA Huynh acetaminophen (Tylenol) 650 mg PO Q6H PRN lisinopril 40 mg PO DAILY metoprolol succinate ER 75 mg PO DAILY simvastatin 20 mg PO DAILY Tobacco use date assessed: 05/22/23 Fall risk assessment: No Falls in past year Last assessed Fall Risk: 05/22/23 Dental Screening Dental Screen Date: 05/22/23 Did you have a dental visit in the last 12 months?: Yes Did you have a dental problem in the last 6 months where you did not have access to dental care?: No Was dental information given to patient?: Patient has dentist HPI 05/25/23 Right total Knee Replacement HPI Details Patient is an 82-year-old male who presents today for preop clearance. Patient of Dr. Boston. Surgery: Right total knee arthroplasty due to arthritis of right knee Date: 05/25/2023 Surgeon: Dr. Gonzales Location: [facility] Anaesthesia: General/spinal/block. Patient reports history of general anesthesia in the past that he tolerated well. Patient denies history of perioperative hypothermia or blood clotting disorders. He is not on anticoagulation. Medical history significant for hypertension, hypercholesterolemia, obesity, impaired glucose tolerance, anxiety, depression, tubular adenoma of colon, urinary frequency, mild cognitive impairment, and arthritis of right knee among others. Patient denies shortness of breath or chest pain. [facility] Medical History Blind left eye Bilateral shoulder pain Low back pain Annual physical exam Rotator cuff rupture COVID-19 virus infection Anxiety and depression Obesity (BMI 30-39.9) Vitamin D deficiency Impaired glucose tolerance Tubular adenoma of colon Hypercholesterolemia Hypertension Dislocation of shoulder, left, closed Urinary frequency Erectile dysfunction Surgical History Hx of cataract extraction Hx of colonoscopy H/O prostatectomy H/O left knee surgery History of rhinoplasty History of tonsillectomy S/P rotator cuff repair Family History Father Acute leukemia Mother No problems noted. Social History Household Members: None Housing: Apartment Are you a primary adult care manager to a significant other at home: No Do you presently have visiting nurse or other home services: No Alcohol intake: former Patient Tobacco Use Status: Never used Tobacco e-Cigarette/Vaping Use: Never Used Second Hand Smoke Exposure: No Advance Directives Date on File: 06/01/20 Current occupational status: retired Cognitive needs: No Hearing needs: No Vision needs: No Questionnaire Thrive Questionnaire Date Thrive assessed: 12/04/22 AUDIT C Alcohol Use Questionnaire (AUDIT-C) 1. How often do you have a drink containing alcohol?: Never 2. How many drinks containing alcohol do you have on a typical day when you are drinking?: 1 or 2 (0) 3. How often do you have six or more drinks on one occasion?: Never Total Score: 0 Score Reviewed/Action Taken: No JANE-7 AMB Questionnaire JANE-7 Date JANE - 7 assessed: 12/04/22 Source: Developed by Drs. Efraín Cunha, Jenna Loo, Owen Caceres and colleagues, with an educational annette from [employer]. Review of Systems Const Denies body aches, Denies chills, Denies fever(s) and Denies headache(s) Eyes Denies change in vision ENT Denies dizziness, Denies otalgia, Denies headache(s), Denies nasal discharge, Denies sinus pain and Denies sore throat Card Denies chest pain, Denies edema, Denies lightheadedness and Denies dyspnea Resp Denies cough, Denies dyspnea and Denies wheezing GI Denies abdominal pain, Denies constipation, Denies diarrhea, Denies nausea and Denies vomiting Denies dysuria Musc Denies myalgias and Reports arthralgias Skin/Breast Denies rash Neuro Denies dizziness and Denies headache(s) Aller/Immun Denies wheezing Physical exam (Primary Care) Vital Signs: Last Vital Signs Pulse 60 05/22/23 11:46 BP 132/70 05/22/23 11:46 Pulse Ox 96 05/22/23 11:46 Oxygen Delivery Method Room Air 05/22/23 11:46 BMI result Body Mass Index 30.4 Tobacco/Smoking Status: Tobacco use Status Tobacco use date assessed 05/22/23 05/22/23 11:47 Patient Tobacco Use Status Never used Tobacco 05/22/23 11:47 Tobacco use type 04/08/23 14:56 e-Cigarette/Vaping Use Never Used 05/22/23 11:47 Thrive Assessment: Date of Thrive Assessment Date Thrive assessed 12/04/22 05/22/23 11:47 Const General: cooperative and no acute distress Orientation/consciousness: patient oriented x3 HENMT Head: Yes normocephalic and Yes atraumatic Ears: TM's normal bilaterally Face and sinus: Yes sinuses nontender Mouth: oropharynx normal and moist mucous membranes Throat: Yes posterior oropharynx normal Eyes General: appearance normal, both eyes and all related structures Pupils: Equal, round and reactive pupils present EOM: EOMs intact bilaterally Neck Neck: Yes normal visual inspection, Yes full ROM and Yes no lymphadenopathy Thyroid: Thyroid normal Resp Effort & Inspection: normal respiratory effort and able to speak in complete sentences Auscultation: clear to auscultation bilaterally, no crackles, no rales, no rhonchi and no wheezes Cardio Rate: regular rate Rhythm: regular rhythm Heart sounds: S1 normal heart sound present, S2 normal heart sound present and no murmurs GI Palpation (GI): Soft to palpation, not firm, nontender, no guarding, not rigid and no hepatosplenomegaly Auscultation: normal bowel sounds Skin General skin exam: no rashes or lesions noted Neuro General: patient oriented x3 Cranial nerves: Yes Equal, round and reactive pupils present Gait exam (Neuro): Normal gait present Extrem General: Yes full ROM and No edema Results Reviewed Results Reviewed: Laboratory Tests Laboratory Tests 05/22/23 12:56 TSH 1.09 05/18/23 05/22/23 13:21 12:56 WBC 5.1 RBC 4.38 L Hgb 13.9 L Hct 40.5 L MCV 92.5 MCH 31.7 MCHC 34.3 RDW 12.6 Plt Count 201 MPV 9.0 L Immature Gran % (Auto) 0.2 Neut % (Auto) 46.1 Lymph % (Auto) 37.9 [place] % (Auto) 12.6 H Eos % (Auto) 2.6 Baso % (Auto) 0.6 Lymph # (Auto) 1.9 [place] # (Auto) 0.6 Eos # (Auto) 0.1 Baso # (Auto) 0.0 Abs Immat Gran (auto) 0.01 Absolute Neuts (auto) 2.3 Absolute Nucleated RBC 0.000 Nucleated RBC % (auto) 0.0 PT 12.4 INR 1.0 Sodium 140 Potassium 4.1 Chloride 107 Carbon Dioxide 28 Anion Gap 9 L BUN 17 H Creatinine 0.85 Estim Creat Clear Calc 84.7 Estimated GFR > 60 Random Glucose 91 Calcium 9.7 Assessment and Plan Assessment & Plan (1) Preoperative clearance: Code(s): Z01.818 - Encounter for other preprocedural examination Plan: METs > 4; RCRI Class 1 cardiovascular risk 0.4% for an intermediate risk surgery (recent blood work 05/2023) Regarding preop clearance, the patient is at acceptable risk for proposed surgery. Reviewed with the patient that no surgery is completely free of risk and that this examination is to assist the surgeon in reviewing informed consent. Postop care including DVT prophylaxis per surgeon. Patient is cleared for surgery. Patient is to take metoprolol on the day of surgery with small sips of water and hold all other medications. Patient is to hold NSAIDs prior to surgery. 05/18/2023 EKG with Sinus bradycardia with 1st degree A-V block. EKG reviewed by Dr. Byrnes. Ordering Physician: Zakia Valencia NP Date of Service: 05/18/23 Procedure(s): ECG 12 lead EKG Accession Number(s): [id number] cc: Zakia Valencia NP~ Test Reason : preop Blood Pressure : / mmHG Vent. Rate : 052 BPM Atrial Rate : 052 BPM P-R Int : 224 ms QRS Dur : 092 ms QT Int : 450 ms P-R-T Axes : 057 -16 030 degrees QTc Int : 418 ms Sinus bradycardia with 1st degree A-V block Otherwise normal ECG When compared with ECG of 08-JAN-2020 11:35, [place] interval has increased Vent. rate has decreased BY 38 BPM T wave inversion no longer evident in Inferior leads (2) Arthritis of right knee: Code(s): M17.11 - Unilateral primary osteoarthritis, right knee Plan: Date: 05/25/2023 Surgeon: Dr. Gonzales Location: [facility] Anaesthesia: General/spinal/block. (3) Obesity (BMI 30-39.9): Code(s): E66.9 - Obesity, unspecified Plan: BMI 30.4 Orders: Orders TSH reflex Free T4 Today Z01.818 - Encounter for other preprocedural examination Prothrombin Time INR Today Z01.818 - Encounter for other preprocedural examination Complete Blood Count Auto Diff Today Z01.818 - Encounter for other preprocedural examination Coding Level of Care Code Est Pt Level 3 (04623) Diagnoses Preoperative clearance Z01.818 Arthritis of right knee M17.11 Obesity (BMI 30-39.9) E66.9
== END 2023-05-22 14:23 | disposition home or self-care (01) ==
PROVIDERS: PCP Internal Medicine; Visit Provider Nurse Practitioner Family
DX: Z01.818 Encounter for other preprocedural examination (principal); M17.11 Unilateral primary osteoarthritis, right knee; E66.9 Obesity, unspecified; Z68.30 Body mass index [BMI] 30.0-30.9, adult
CPT/HCPCS: 99213

== ENCOUNTER 2023-05-22 12:33 | Outpatient (REF) | payer MEDICARE, SELFPAY ==
[2023-05-22 12:57] LABS: MANUAL DIFF FLAG NO
[2023-05-22 13:27] LABS: Basophils Percent Auto 0.6 % (0-2); Eosinophils Absolute Auto 0.1 X10*3/uL (0.0-0.4); Eosinophils Percent Auto 2.6 % (0-4); Hematocrit 40.5 % (42.0-52.0); Hemoglobin 13.9 g/dl (14.0-18.0); Imm Gran Abs Auto 0.01 X10*3/uL (0.00-0.03); Imm Gran Pct Auto 0.2 % (0.0-0.4); Lymphocytes Absolute Auto 1.9 X10*3/uL (1.2-4.9); Lymphocytes Percent Auto 37.9 % (20-40); Mean Corpuscular HGB Conc 34.3 g/dl (31.0-36.0); Mean Corpuscular Hemoglobin 31.7 pg (27.0-33.0); Mean Corpuscular Volume 92.5 fL (80.0-98.0); Monocytes Absolute Auto 0.6 X10*3/uL (0.1-1.2); Monocytes Percent Auto 12.6 % (2-11); Neutrophils Absolute Auto 2.3 x10*3/uL (2.0-8.3); Neutrophils Percent Auto 46.1 % (45-73); Platelet Count 201 X10*3/uL (160-400); Red Blood Count 4.38 X10*6/uL (4.60-5.80); Red Cell Distribution Width 12.6 % (11.0-16.0); White Blood Count 5.1 X10*3/uL (4.8-10.8)
[2023-05-22 13:42] LABS: Prothrombin Time 12.4 SEC (11.1-13.3)
[2023-05-22 14:27] LABS: TSH reflex Free T4 1.09 uIU/mL (0.32-4.0)
== END 2023-05-22 12:34 | disposition home or self-care (01) ==
LOC: HO.LAB 12:33
PROVIDERS: Visit Provider Nurse Practitioner Family
DX: Z01.818 Encounter for other preprocedural examination (principal); R73.02 Impaired glucose tolerance (oral); E78.00 Pure hypercholesterolemia, unspecified; I10 Essential (primary) hypertension
CPT/HCPCS: 36415; 84443; 85025; 85610

== ENCOUNTER 2023-05-25 05:58 | Inpatient (IN) | payer MEDICARE, SELFPAY ==
--- NOTE | 2023-05-18 | ECG_ITS ---
Test Reason : preop Blood Pressure : / mmHG Vent. Rate : 052 BPM Atrial Rate : 052 BPM P-R Int : 224 ms QRS Dur : 092 ms QT Int : 450 ms P-R-T Axes : 057 -16 030 degrees QTc Int : 418 ms Sinus bradycardia with 1st degree A-V block Otherwise normal ECG When compared with ECG of 08-JAN-2020 11:35, ME interval has increased Vent. rate has decreased BY 38 BPM T wave inversion no longer evident in Inferior leads Referred By: Zakia Valencia Electronically Signed By:VIKAS RUIZ
[2023-05-18 12:00] VITALS: BP 152/79; PULSE 60; RESP 16; O2SAT 99; BMI 29.8
--- NOTE | 2023-05-18 12:28 | HO.ANESPROP2 ---
HPI - Anesthesia Eval Consult details Narrative: 82yo M for Right Knee Replacement Total Medically optimized No recent illness No CP/SOB with very minimal activity d/t pain PMFSH Active Problems Active Problems: All Active Problems (Updated 05/18/23 @ 12:19 by Radha Garcia RN) Arthritis of right knee (Acute) Rotator cuff arthropathy of left shoulder (Acute) Mild cognitive impairment (Acute) Vitamin B12 deficiency (Acute) Urinary frequency (Acute) Vitamin D deficiency (Acute) Tubular adenoma of colon (Acute) Erectile dysfunction (Acute) Anxiety and depression (Acute) Impaired glucose tolerance (Acute) Obesity (BMI 30-39.9) (Chronic) Hypercholesterolemia (Acute) Hypertension (Acute) Past Medical History Medical History Blind left eye Bilateral shoulder pain Low back pain Annual physical exam Rotator cuff rupture COVID-19 virus infection Anxiety and depression Obesity (BMI 30-39.9) Vitamin D deficiency Impaired glucose tolerance Tubular adenoma of colon Hypercholesterolemia Hypertension Dislocation of shoulder, left, closed Urinary frequency Erectile dysfunction Family History Family History Father Acute leukemia Mother No problems noted. Surgical History Surgical History Hx of cataract extraction Hx of colonoscopy H/O prostatectomy H/O left knee surgery History of rhinoplasty History of tonsillectomy S/P rotator cuff repair Social History Social History Household Members: None Housing: Apartment Are you a primary healthcare administrative assistant to a significant other at home: No Do you presently have visiting nurse or other home services: No Alcohol intake: former Patient Tobacco Use Status: Never used Tobacco e-Cigarette/Vaping Use: Never Used Second Hand Smoke Exposure: No Use of substances other than those prescribed or required for medical reasons: No Have you been hit, kicked, punched, or otherwise hurt by someone within the past year? If so, by whom?: No Spiritual Healthcare Practices: no Mormonism Healthcare Practices: no Cultural Healthcare Practices: no Are you DNR?: No Advance Directives: Yes Advance Directives Information Provided: Yes Advance Directives on File: Yes Advance Directives Date on File: 06/01/20 Recently lost weight without trying: No Nutrition Risks: Surgical patient >75years Current occupational status: retired Cognitive needs: No Hearing needs: No Vision needs: No Meds Allergies Allergy/AdvReac Type Severity Reaction Status Date / Time No Known Allergies Allergy Mild NKA Verified 05/22/23 11:59 Home Medications Medication Instructions Recorded Confirmed Last Taken Type acetaminophen 325 mg capsule 650 mg PO Q6H PRN Pain 05/18/23 05/22/23 Unknown History (Tylenol) metoprolol succinate 50 mg 75 mg PO DAILY 05/18/23 05/22/23 Unknown History tablet,extended release 24 hr simvastatin 20 mg tablet 20 mg PO DAILY 05/18/23 05/22/23 Unknown History Exam Exam Date and Time: May 18, 2023 1228 Height,Weight and Vital Signs: Height 6 ft Weight 99.79 kg Last Vital Signs Pulse 60 05/18/23 12:00 Resp 16 05/18/23 12:00 BP 152/79 H 05/18/23 12:00 Pulse Ox 99 05/18/23 12:00 O2 Del Method Room Air 05/18/23 12:00 Pertinent Lab Results Pertinent Lab Results: Lab Results 05/18/23 05/18/23 05/18/23 Range/Units 12:30 13:06 13:21 WBC 5.3 (4.8-10.8) X10*3/uL RBC 4.41 L (4.60-5.80) X10*6/uL Hgb 14.0 (14.0-18.0) g/dl Hct 41.1 L (42.0-52.0) % MCV 93.2 (80.0-98.0) fL MCH 31.7 (27.0-33.0) pg MCHC 34.1 (31.0-36.0) g/dl RDW 12.7 (11.0-16.0) % Plt Count 200 (160-400) X10*3/uL MPV 9.0 L (9.4-12.4) fL Absolute Nucleated RBC 0.000 (0.0-0.012) X10*3/uL Nucleated RBC % (auto) 0.0 (0.0-0.2) /100WBC Sodium 140 (135-145) mmol/L Potassium 4.1 (3.3-5.1) mmol/L Chloride 107 (96-108) mmol/L Carbon Dioxide 28 (22-29) mmol/L Anion Gap 9 L (12-20) BUN 17 H (9-16) mg/dL Creatinine 0.85 (0.5-1.4) mg/dL Estim Creat Clear Calc 84.7 Estimated GFR > 60 Random Glucose 91 (60-115) mg/dL Calcium 9.7 (8.4-10.2) mg/dL Nasal Screen MRSA (PCR) NEGATIVE (Negative) Nasal S. aureus Screen NEGATIVE (Negative) Nasal MRSA/S.aureus Interp SEE NOTE Blood Type A Positive Antibody Screen NEGATIVE Antigen Identification A1 Antigen - NEGATIVE Narrative Narrative: EKG 05/2023 Vent. Rate : 052 BPM Atrial Rate : 052 BPM P-R Int : 224 ms QRS Dur : 092 ms QT Int : 450 ms P-R-T Axes : 057 -16 030 degrees QTc Int : 418 ms Sinus bradycardia with 1st degree A-V block Otherwise normal ECG When compared with ECG of 08-JAN-2020 11:35, [place] interval has increased Vent. rate has decreased BY 38 BPM T wave inversion no longer evident in Inferior leads Airway Mallampati Class: II TM Dist: >3cm Neck ROM: Full Denture: Upper Heart: RRR Lungs: CTAB Assessment and Plan Assessment Anesthesia Assessment: Anesthesia Plan Discussed and PAT Visit
[2023-05-18 13:57] LABS: Hematocrit 41.1 % (42.0-52.0); Mean Corpuscular HGB Conc 34.1 g/dl (31.0-36.0); Mean Corpuscular Hemoglobin 31.7 pg (27.0-33.0); Mean Corpuscular Volume 93.2 fL (80.0-98.0); Platelet Count 200 X10*3/uL (160-400); Red Blood Count 4.41 X10*6/uL (4.60-5.80); Red Cell Distribution Width 12.7 % (11.0-16.0); White Blood Count 5.3 X10*3/uL (4.8-10.8)
[2023-05-18 14:35] LABS: Anion Gap 9 (12-20); Blood Urea Nitrogen 17 mg/dL (9-16); Calcium 9.7 mg/dL (8.4-10.2); Carbon Dioxide 28 mmol/L (22-29); Chloride 107 mmol/L (96-108); Creatinine Clr Calc Pharmacy 84.7; Estimated Glomerular Filt Rate > 60; Glucose Random 91 mg/dL (60-115); Potassium 4.1 mmol/L (3.3-5.1); Sodium 140 mmol/L (135-145)
[2023-05-18 14:43] LABS: MRSA Nasal PCR NEGATIVE (Negative); SA Nasal PCR NEGATIVE (Negative)
[2023-05-25] VITALS (14 sets, daily range): BP systolic 128–179; BP diastolic 63–89; PULSE 51–91; RESP 16–20; TEMP 36.1–36.6; O2SAT 97–100
[2023-05-25 06:46] LABS: Hemoglobin 14.4 g/dl (14.0-18.0)
[2023-05-25] MEDS: Lactated Ringers 1,000 ML 100 ML IVCONT ×3 (07:04→22:53)
--- NOTE | 2023-05-25 07:06 | PHA.MEDREC ---
Pharmacy Consult ? Medication Reconciliation Pharmacy has completed the medication reconciliation. Reviewed med rec done by nursing
--- NOTE | 2023-05-25 08:04 | HO.ANESPROP2 ---
HPI - Anesthesia Eval Consult details Narrative: for right knee replacement , history of cognitive dysfunction PMFSH Active Problems Active Problems: All Active Problems (Updated 05/22/23 @ 12:13 by RITA Huynh) Preoperative clearance (Acute) Arthritis of right knee (Acute) Rotator cuff arthropathy of left shoulder (Acute) Mild cognitive impairment (Acute) Vitamin B12 deficiency (Acute) Urinary frequency (Acute) Vitamin D deficiency (Acute) Tubular adenoma of colon (Acute) Erectile dysfunction (Acute) Anxiety and depression (Acute) Impaired glucose tolerance (Acute) Obesity (BMI 30-39.9) (Chronic) Hypercholesterolemia (Acute) Hypertension (Acute) Past Medical History Medical History Blind left eye Bilateral shoulder pain Low back pain Annual physical exam Rotator cuff rupture COVID-19 virus infection Anxiety and depression Obesity (BMI 30-39.9) Vitamin D deficiency Impaired glucose tolerance Tubular adenoma of colon Hypercholesterolemia Hypertension Dislocation of shoulder, left, closed Urinary frequency Erectile dysfunction Family History Family History Father Acute leukemia Mother No problems noted. Family history of problems with anesthesia: No Surgical History Surgical History Hx of cataract extraction Hx of colonoscopy H/O prostatectomy H/O left knee surgery History of rhinoplasty History of tonsillectomy S/P rotator cuff repair History of Problems with Anesthesia: No Social History Social History Household Members: None Housing: Apartment Are you a primary patient care director to a significant other at home: No Do you presently have visiting nurse or other home services: No Alcohol intake: former Patient Tobacco Use Status: Never used Tobacco e-Cigarette/Vaping Use: Never Used Second Hand Smoke Exposure: No Use of substances other than those prescribed or required for medical reasons: No Have you been hit, kicked, punched, or otherwise hurt by someone within the past year? If so, by whom?: No Spiritual Healthcare Practices: no Congregational Healthcare Practices: no Cultural Healthcare Practices: no Are you DNR?: No Advance Directives: Yes Advance Directives Information Provided: Yes Advance Directives on File: Yes Advance Directives Date on File: 06/01/20 Recently lost weight without trying: No Nutrition Risks: Surgical patient >75years Current occupational status: retired Cognitive needs: No Hearing needs: No Vision needs: No Meds Allergies Allergy/AdvReac Type Severity Reaction Status Date / Time No Known Allergies Allergy Mild NKA Verified 05/22/23 11:59 Active Medications: Current Medications Lactated Ringer's (Lr) 1,000 mls @ 100 mls/hr IVCONT .Q10H RAÚL Last Admin: 05/25/23 07:04 Dose: 100 mls/hr Home Medications Medication Instructions Recorded Confirmed Last Taken Type acetaminophen 325 mg capsule 650 mg PO Q6H PRN Pain 05/18/23 05/22/23 Unknown History (Tylenol) metoprolol succinate 50 mg 75 mg PO DAILY 05/18/23 05/22/23 Unknown History tablet,extended release 24 hr simvastatin 20 mg tablet 20 mg PO DAILY 05/18/23 05/22/23 Unknown History Exam Exam Date and Time: May 25, 2023 0804 Height,Weight and Vital Signs: Height 6 ft Weight 99.79 kg Last Vital Signs Temp 97.5 F 05/25/23 07:02 Pulse 61 05/25/23 07:02 Resp 16 05/25/23 07:02 BP 179/89 H 05/25/23 07:02 Pulse Ox 99 05/25/23 07:02 O2 Del Method Room Air 05/25/23 07:02 Pertinent Lab Results Pertinent Lab Results: Laboratory Tests 05/18/23 05/18/23 05/18/23 12:30 13:06 13:21 WBC 5.3 RBC 4.41 L Hgb 14.0 Hct 41.1 L MCV 93.2 MCH 31.7 MCHC 34.1 RDW 12.7 Plt Count 200 MPV 9.0 L Absolute Nucleated RBC 0.000 Nucleated RBC % (auto) 0.0 Sodium 140 Potassium 4.1 Chloride 107 Carbon Dioxide 28 Anion Gap 9 L BUN 17 H Creatinine 0.85 Estim Creat Clear Calc 84.7 Estimated GFR > 60 Random Glucose 91 Calcium 9.7 Nasal Screen MRSA (PCR) NEGATIVE Nasal S. aureus Screen NEGATIVE Nasal MRSA/S.aureus Interp SEE NOTE Blood Type A Positive Antibody Screen NEGATIVE Antigen Identification A1 Antigen - NEGATIVE 05/25/23 06:20 WBC RBC Hgb 14.4 Hct 42.0 MCV MCH MCHC RDW Plt Count MPV Absolute Nucleated RBC Nucleated RBC % (auto) Sodium Potassium Chloride Carbon Dioxide Anion Gap BUN Creatinine Estim Creat Clear Calc Estimated GFR Random Glucose Calcium Nasal Screen MRSA (PCR) Nasal S. aureus Screen Nasal MRSA/S.aureus Interp Blood Type Antibody Screen Antigen Identification Airway Mallampati Class: III TM Dist: <=3cm Neck ROM: Poor Denture: Lower Heart: rrr Lungs: cta Assessment and Plan Assessment Anesthesia Assessment: Anesthesia Plan Discussed and Chart Reviewed Final Anesthetic Review Family History of Problems with Anesthesia: No History of Problems with Anesthesia: No NPO: Yes ASA Class: III Final Preanesthetic Review: No Changes in Pt Med Stat, Meds/Allgs Chart Reviewed, Consent Obtained/Reviewed and Anes Risks/Benef Reviewed Patient Risk: Intermediate Procedure Risk: Intermediate Anesthetic Plan Anesthetic Plan: Spinal Disposition: Standard PACU
--- NOTE | 2023-05-25 10:32 | P.BOP_ITS ---
Brief Operative Note Date of Service: 05/25/23 Pre-op diagnosis: Right knee degenerative joint disease Post-op diagnosis: same Procedure: Right total knee arthroplasty Implants: [place] [employer] cemented posterior stabilized total knee arthroplasty with a femoral component size 7 right, tibial component size 6, polyethylene liner size 6 with 9 mm of thickness, an asymmetric patella component size 32 with 10 mm of thickness Surgeon: Gustavo Gonzales MD Anesthesia: spinal Was an Senior Project Accountant used for this Procedure?: Yes Senior Project Accountant: Lety Hatfield Estimated blood loss (mL): 200 Tourniquet time (min): 0 Condition: stable Disposition: PACU
--- NOTE | 2023-05-25 10:33 | W.PM.OPN ---
Operative Note Operative Note Date of Service: 05/25/23 Narrative: After the patient was identified as Saulo Mathews and their right knee was initialed by myself the patient was brought to the holding area where a right leg nerve block was performed by the anesthesiologist in routine fashion. The patient was then brought to the operating room where conscious sedation and spinal anesthesia were performed by the anesthesiologist in routine fashion The patient was given 2 g of IV Ancef preoperatively for infection prophylaxis. The patient's right lower extremity was prepped and draped in sterile fashion. A formal time-out was completed. The patient's right knee was placed onto a small bump to produce 30? of knee flexion during exposure. A #10 scalpel blade was used to make a midline incision extending 1 handbreadth proximal and distal to the patella. A second #10 scalpel blade was used to dissect the subcutaneous tissues down to the extensor mechanism. The subcutaneous flaps were maintained as thick as possible. A medial parapatellar arthrotomy was then performed using a #10 scalpel blade. The arthrotomy was begun just medial to the patellar tendon. The arthrotomy was continued 1 cm medial to the patella and then 5 mm into the medial aspect of the quadriceps tendon. The infrapatellar fat pad was partially excised to help with exposure. The soft tissue retinaculum was raised one-half of the way around the medial aspect of the proximal tibia. The patella was everted and the knee was flexed to 90?. There was no injury to the patellar tendon or its insertion onto the tibial tubercle. A drill bit was introduced into the distal aspect of the femur with a starting point 1 cm anterior to the origin of the posterior cruciate ligament. The intramedullary alignment tio was put into place. The distal alignment guide was set for a 5 degree valgus cut. The distal cutting block was put into place and was held with 4 pins. The intramedullary alignment tio was removed. Soft tissues were retracted in the distal femoral cut was made using a sagittal saw. The distal aspect of the femur measured to be a size 7 right component. Two drill holes were placed into the distal aspect of the femur marking 3? of external rotation. The distal cutting block was impacted into place and was held with 2 pins. Soft tissues were retracted and the 4 distal femoral cuts were made using a sagittal saw. Final notching and drilling of the distal aspect of the femur were performed in routine fashion. The trial femoral component was impacted into place. The knee was taken through a full range of motion. The patella tracked well. The patella was everted and the knee was flexed to 90?. The trial component was removed and our attention was directed to the proximal tibia. The medial and lateral menisci were removed using a #10 scalpel blade. A small rim of the medial meniscus was left intact to help prevent injury to the medial collateral ligament. A drill bit was then introduced into the proximal tibia with a starting point midway from medial to lateral and one-third of the way posteriorly. The intramedullary alignment tio was put into place. The proximal tibial cutting guide was placed over the alignment tio in line with the 2nd toe. The guide was held in place using 3 pins. The intramedullary alignment tio was removed. Soft tissues were retracted and the proximal tibial cut was made using a sagittal saw. The proximal tibia measured to be a size 6 component. The tibial tray was put into place with a 9 mm liner. The femoral component was impacted into place. The knee was taken through a full range of motion. There was full flexion and full extension. There was no instability with varus or valgus stress testing with the knee in flexion or extension. The patella tracked well with no medially directed force. The rotation of the tibial tray was marked using electrocautery with the knee in extension. The patella was everted and the knee was flexed to 90?. All trial components were removed. The tibial tray was placed onto the proximal tibia in line with the electrocautery felicia. The tray was held in place using 3 pins. Final broaching of the proximal tibia was performed in routine fashion. The trial liner and trial femoral component were put into place. The knee was brought into extension and our attention was directed to the patella. The patella measured 25 mm in thickness. The patellar resection guide was set for a 10 mm resection. Soft tissues were retracted and the patella cut was made using a sagittal saw. The remaining patella measured 15 mm in thickness. The undersurface of the patella was measured to be a size 32 asymmetric component. Three drill holes were placed into the undersurface of the patella in routine fashion. The trial component was put into place. The knee was taken through a full range of motion. The patella tracked well. The patella was everted and the knee was flexed to 90?. All trial components were removed. The knee was once again brought into extension and placed onto a small bump. The knee joint was irrigated with copious amounts of normal saline solution via pulse lavage while the cement was mixed. The patella was everted and the knee was flexed to 90?. A small amount of cement was placed along the posterior aspects of the tibial and femoral components. Cement was then pressurized into the proximal tibia. The tibial component was impacted into place. Any excess cement was removed. The polyethylene liner was then impacted into place. Cement was then pressurized into the distal aspect of the femur. A small amount of cement was placed into the intramedullary canal to help reduce bleeding. The femoral component was impacted into place. Any excess cement was removed. The knee was then brought into extension. Cement was pressurized into the undersurface of the patella. The patellar component was put into place and was held with a patella clamp. Any excess cement was removed. Once the cement had hardened the patellar clamp was removed. The knee was taken through a full range of motion. There was full flexion and extension. There was no instability with varus or valgus stress testing with the knee in flexion or extension. The patella tracked well with no medially directed force. The knee joint was irrigated with copious amounts of normal saline solution via pulse lavage. Any significant bleeding vessels were coagulated. The patient's right knee was placed onto a small bump. The arthrotomy was closed with #2 Ethibond [id number] interrupted suture as well as #1 Vicryl [id number] interrupted suture. The wound was once again irrigated. The subcutaneous tissues were closed with 0 Vicryl and 2-0 Vicryl interrupted sutures. The skin was closed with skin maxime. Dry sterile dressing and Wai bandages were placed over the patient's right knee. The patient was awake and alert. The patient was transferred to the recovery room in stable condition.
[2023-05-25] MEDS: 0.9 % Sodium Chloride Flush 3 ML SYRINGE IVFLUSH ×2 (12:25→15:34)
[2023-05-25] MEDS: lisinopriL 40 MG TABLET PO (13:46)
[2023-05-25] MEDS: Docusate Sodium 100 MG CAPSULE PO (13:46)
[2023-05-25] MEDS: Celecoxib 200 MG CAPSULE PO ×2 (13:47→21:15)
[2023-05-25] MEDS: Metoprolol Succinate ER 25 MG TAB.ER.24H 75 MG PO (13:47)
--- NOTE | 2023-05-25 14:08 | HO.PM.IMCN ---
History of Present Illness Data of Consult Service Date: 05/25/23 Requesting physician: Brett Crabtree Primary Care Provider: MD KANU Jose Reason for consult: medical management 82-year-old male with history of hypercholesterolemia, hypertension, erectile dysfunction anxiety depression, impaired fasting glucose mild cognitive impairment admitted to Orthopedic surgery for management of osteoarthritis of the right knee s/p TKA with consult placed hospitalist service for medical H and P. The patient is reporting discomfort of the right knee but otherwise has no complaints. He denies any alcohol use, does not smoke cigarettes, and denies any illicit drug use. Review of Systems Review of Systems: General: No fevers, malaise, unintentional weight loss HEENT: No blurred vision, diplopia. No sore throat, nasal congestion, rhinorrhea, sinus pain, ear pain Cardiovascular: No chest pain, palpitations, or leg edema Respiratory: No shortness of breath, wheezing, cough GI: No abdominal pain, nausea, vomiting, diarrhea, constipation, melena, hematochezia : No dysuria, hematuria, increased urinary frequency, decreased urinary output MSK: No myalgia, back pain. +knee pain Neuro: No headaches, weakness, paresthesias Skin: No rashes or lesions PMFSH Medical History Blind left eye Bilateral shoulder pain Low back pain Annual physical exam Rotator cuff rupture COVID-19 virus infection Anxiety and depression Obesity (BMI 30-39.9) Vitamin D deficiency Impaired glucose tolerance Tubular adenoma of colon Hypercholesterolemia Hypertension Dislocation of shoulder, left, closed Urinary frequency Erectile dysfunction Family History Father Acute leukemia Mother No problems noted. Surgical History Hx of cataract extraction Hx of colonoscopy H/O prostatectomy H/O left knee surgery History of rhinoplasty History of tonsillectomy S/P rotator cuff repair Social History Household Members: None Housing: Apartment Are you a primary special needs caregiver to a significant other at home: No Do you presently have visiting nurse or other home services: No Alcohol intake: former Patient Tobacco Use Status: Never used Tobacco e-Cigarette/Vaping Use: Never Used Second Hand Smoke Exposure: No Use of substances other than those prescribed or required for medical reasons: No Have you been hit, kicked, punched, or otherwise hurt by someone within the past year? If so, by whom?: No Spiritual Healthcare Practices: no Yazidism Healthcare Practices: no Cultural Healthcare Practices: no Are you DNR?: No Advance Directives: Yes Advance Directives Information Provided: Yes Advance Directives on File: Yes Advance Directives Date on File: 06/01/20 Recently lost weight without trying: No Nutrition Risks: Surgical patient >75years Current occupational status: retired Cognitive needs: No Hearing needs: No Vision needs: No Meds Allergies Allergy/AdvReac Type Severity Reaction Status Date / Time No Known Allergies Allergy Mild NKA Verified 05/22/23 11:59 Active Medications: Current Medications Acetaminophen (Acetaminophen 325 Mg Tablet) 650 mg PO Q6H PRN PRN Reason: Pain, Mild (Pain Scale 1-3) Aspirin (Aspirin 325 Mg Tablet) 325 mg PO Q12H [facility] Atorvastatin Calcium (Atorvastatin Calcium 10 Mg Tablet) 10 mg PO DAILY [facility] Celecoxib (Celecoxib 200 Mg Capsule) 200 mg PO BID [facility] Last Admin: 05/25/23 13:47 Dose: 200 mg Docusate Sodium (Docusate Sodium 100 Mg Capsule) 100 mg PO BID [facility] Last Admin: 05/25/23 13:46 Dose: 100 mg Hydromorphone HCl (Hydromorphone Hcl 0.5 Mg/0.5 Ml Syringe) 0.25 mg IVPUSH Q4H PRN; Protocol PRN Reason: Pain, Severe (Pain Scale 7-10) Hydromorphone HCl (Hydromorphone Hcl 0.5 Mg/0.5 Ml Syringe) 0.5 mg IM Q4H PRN; Protocol PRN Reason: Pain, Severe (Pain Scale 7-10) Lactated Ringer's (Lr) 1,000 mls @ 100 mls/hr IVCONT .Q10H [facility] Last Admin: 05/25/23 12:25 Dose: 100 mls/hr Cefazolin Sodium/Dextrose (Ancef) 2 gm in 50 mls @ 100 mls/hr IV Q8H [facility] Stop: 05/26/23 06:00 Lactated Ringer's (Lr) 1,000 mls @ 100 mls/hr IVCONT .Q10H [facility] Last Admin: 05/25/23 13:48 Dose: Not Given Lisinopril (Lisinopril 40 Mg Tablet) 40 mg PO DAILY [facility]; Protocol Last Admin: 05/25/23 13:46 Dose: 40 mg Metoprolol Succinate (Metoprolol Succinate Er 25 Mg Tab.Er.24h) 75 mg PO DAILY [facility]; Protocol Last Admin: 05/25/23 13:47 Dose: 75 mg Ondansetron HCl (Ondansetron Hcl 4 Mg/2 Ml Vial) 4 mg IVPUSH Q8H PRN PRN Reason: Nausea and Vomiting Oxycodone HCl (Oxycodone Hcl Immed Release 5 Mg Tablet) 5 mg PO Q4H PRN PRN Reason: Pain, Moderate(Pain Scale 4-6) Oxycodone HCl (Oxycodone Hcl Immed Release 5 Mg Tablet) 10 mg PO Q4H PRN PRN Reason: Pain, Moderate(Pain Scale 4-6) Sodium Chloride (0.9 % Sodium Chloride Flush 3 Ml Syringe) [facility] Admin: 05/25/23 12:25 Dose: 3 ml Home Medications Medication Instructions Recorded Confirmed Last Taken Type acetaminophen 325 mg capsule 650 mg PO Q6H PRN Pain 05/18/23 05/22/23 Unknown History (Tylenol) metoprolol succinate 50 mg 75 mg PO DAILY 05/18/23 05/22/23 Unknown History tablet,extended release 24 hr simvastatin 20 mg tablet 20 mg PO DAILY 05/18/23 05/22/23 Unknown History Physical Exam Vital Signs and Narrative: Vital Signs: Last Vital Signs Temp 97 F 05/25/23 12:09 Pulse 58 05/25/23 12:09 Resp 20 05/25/23 12:09 BP 161/80 H 05/25/23 12:09 Pulse Ox 99 05/25/23 12:09 O2 Del Method Room Air 05/25/23 12:09 BMI result Body Mass Index 29.8 Constitutional - Awake and Alert, No apparent distress Eyes - PERRLA, EOMI Cardiovascular - S1S2, RRR, No edema Respiratory - Normal lung expansion, Normal respiratory effort, No respiratory distress, CTA bilaterally Gastrointestinal - NT / ND; +BS; No rebound or guarding Extremities - no calf tenderness bilaterally, no swelling Skin - Warm/Dry Neurological - Alert & oriented x3 Psychological - Appropriate affect Results Labs 05/25/23 06:20 05/18/23 13:21 Labs: Laboratory Results - last 24 hr 05/25/23 06:20 Antigen Identification A1 Antigen - NEGATIVE Assessment and Plan (1) Arthritis of right knee: Status: Acute Plan 82-year-old male with history of hypercholesterolemia, hypertension, erectile dysfunction anxiety depression, impaired fasting glucose mild cognitive impairment admitted to Orthopedic surgery for management of osteoarthritis of the right knee s/p TKA with consult placed hospitalist service for medical H and P. #OA right knee s/p right tka pod0 -plan per ortho surgery #HTN -bp reasonably controlled -resume antihypertensives am #HLD -continue statin Thank you for allowing me to participate in this consult. Signing off at this time. Please do not hesitate to call for further questions. Time Spent With Patient Time: Total time managing care of this patient today ____ minutes.
[2023-05-25] MEDS: ceFAZolin Sodium/Dextrose,Iso 2 GM/50 ML PIGGYBACK IV ×2 (15:31→23:59)
[2023-05-25] MEDS: Aspirin 325 MG TABLET PO (18:29)
--- NOTE | 2023-05-25 19:04 | PC.NURSE ---
@ 1700 this nurse noted that this pt had yet to voided post surgery. Bladder scan was done with a reading of 450ml. Education was provided and pt was offered a straight cath. Pt refused at the time stating that he just needed more time. Pt was reassessed and offered straight cath every 30 min after, but pt refused each time, eventually becoming agitated. Physician and overnight nurse made aware.
[2023-05-26 03:18] VITALS: BP 148/67; PULSE 67; RESP 18; TEMP 36.5; O2SAT 98
[2023-05-26] MEDS: Acetaminophen 325 MG TABLET 650 MG PO ×2 (04:30→12:10)
[2023-05-26] MEDS: Aspirin 325 MG TABLET PO ×2 (05:43→17:17)
[2023-05-26 06:46] LABS: MANUAL DIFF FLAG NO
[2023-05-26 07:06] LABS: Basophils Percent Auto 0.1 % (0-2); Eosinophils Percent Auto 0.2 % (0-4); Hematocrit 34.7 % (42.0-52.0); Hemoglobin 11.8 g/dl (14.0-18.0); Imm Gran Abs Auto 0.03 X10*3/uL (0.00-0.03); Imm Gran Pct Auto 0.3 % (0.0-0.4); Lymphocytes Absolute Auto 1.5 X10*3/uL (1.2-4.9); Lymphocytes Percent Auto 16.5 % (20-40); Mean Corpuscular Hemoglobin 31.5 pg (27.0-33.0); Mean Corpuscular Volume 92.5 fL (80.0-98.0); Mean Platelet Volume 9.2 fL (9.4-12.4); Monocytes Absolute Auto 1.2 X10*3/uL (0.1-1.2); Monocytes Percent Auto 13.3 % (2-11); Neutrophils Absolute Auto 6.4 x10*3/uL (2.0-8.3); Neutrophils Percent Auto 69.6 % (45-73); Platelet Count 175 X10*3/uL (160-400); Red Blood Count 3.75 X10*6/uL (4.60-5.80); Red Cell Distribution Width 12.8 % (11.0-16.0); White Blood Count 9.3 X10*3/uL (4.8-10.8)
[2023-05-26 07:11] LABS: Anion Gap 13 (12-20); Blood Urea Nitrogen 19 mg/dL (9-16); Calcium 8.9 mg/dL (8.4-10.2); Carbon Dioxide 25 mmol/L (22-29); Chloride 105 mmol/L (96-108); Creatinine Clr Calc Pharmacy 98.7; Estimated Glomerular Filt Rate > 60; Glucose Fasting 111 mg/dL (60-99); Potassium 4.8 mmol/L (3.3-5.1); Sodium 138 mmol/L (135-145)
[2023-05-26 07:40] VITALS: BP 130/64; PULSE 65; RESP 18; TEMP 37.1; O2SAT 100
[2023-05-26] MEDS: Metoprolol Succinate ER 25 MG TAB.ER.24H 75 MG PO (07:59)
[2023-05-26] MEDS: oxyCODONE HCl Immed Release 5 MG TABLET PO ×2 (08:00→12:10)
[2023-05-26] MEDS: Celecoxib 200 MG CAPSULE PO ×2 (08:00→21:02)
[2023-05-26] MEDS: Atorvastatin Calcium 10 MG TABLET PO (08:00)
[2023-05-26] MEDS: Docusate Sodium 100 MG CAPSULE PO ×2 (08:00→21:02)
[2023-05-26] MEDS: lisinopriL 40 MG TABLET PO (08:00)
[2023-05-26] MEDS: Lactated Ringers 1,000 ML 100 ML IVCONT ×2 (08:01→18:12)
--- NOTE | 2023-05-26 10:57 | P.PNOP_ITS ---
Subjective Subjective Date of Service: 05/26/23 Interval history: POD 1 sp RT TKA no overnight events resting in bed, tolerating pain denies sob,cp,palpitations Physical Exam Vital Signs: Vital Signs: Last Vital Signs Temp 98.8 F 05/26/23 07:40 Pulse 65 05/26/23 07:40 Resp 18 05/26/23 07:40 BP 130/64 05/26/23 07:40 Pulse Ox 100 05/26/23 07:40 O2 Del Method Room Air 05/26/23 07:40 BMI result Body Mass Index 29.8 Const: General: cooperative, healthy appearing and no acute distress Resp: Effort & Inspection: normal respiratory effort and able to speak in complete sentences Cardio: Rate: regular rate Peripheral pulses: Peripheral pulses 2+ throughout GI: Palpation (GI): Soft to palpation Skin: General skin exam: no rashes or lesions noted Extrem: Other: bandage c/d/i. No erythema or joint effusion. Calf supple nontender. Neurovascularly intact. Procedures Date of Service Date of Service: 05/26/23 Progress Note: A&P Assessment and plan (1) Status post total right knee replacement: Status: Acute Assessment and Plan: * Continue pain mgmnt * Begin Aspirin for dvt ppx * begin PT for RT TKA * Dispo planning-Pending PT eval, pain mgmnt Time Spent With Patient Time: Total time managing care of this patient today ____ minutes. Quality Stroke Does the patient have a stroke diagnosis?: No VTE Prior VTE?: No VTE Risk Level:: Surgical - very high VTE Device Contraindication: N/A - Device Ordered VTE Drug Contraindication: N/A - Med Ordered
--- NOTE | 2023-05-26 12:03 | MHC.CM.PN ---
PT LIVES ALONE AND IS INDEPDENT PT HAD NO SERVICES HE IS AFGREEABLE TO [facility] FOR HOME PT PT HAS OWN RIDE HOME DC PLAN HOME NS
--- NOTE | 2023-05-26 14:33 | HO.POSTANES ---
Post Anesthesia Evaluation Post Anesthesia Evaluation Date of Service: 05/26/23 Vital Signs: Vital Signs Temp Pulse Resp BP Pulse Ox O2 Del Method 05/26/23 07:40 98.8 F 65 18 130/64 100 Room Air 05/26/23 03:18 97.7 F 67 18 148/67 H 98 Room Air Anesthesia: Spinal and Nerve Block Mental Status: Awake Pain Control: Satisfactory Nausea/Vomiting: None Hydration: Adequate Anesthesia-Related Issues: No Anes. Related Issues
[2023-05-26 14:59] VITALS: BP 130/64; PULSE 65; O2SAT 100
[2023-05-26 15:08] VITALS: BP 149/74; PULSE 60; RESP 20; TEMP 36.4; O2SAT 97
[2023-05-26] MEDS: oxyCODONE HCl Immed Release 5 MG TABLET 10 MG PO (17:16)
[2023-05-26 19:14] VITALS: BP 140/70; PULSE 65; RESP 18; TEMP 36.5; O2SAT 97
--- NOTE | 2023-05-26 19:14 | PM.DS ---
DS: Providers Provider Date of Service: 05/27/23 Date of admission: 05/25/23 05:58 Primary care physician: Cody Boston MD Consults: 05/25/23 12:21 Consult to Hospitalist Routine Comment: Consulting Provider: Hospitalist Reason For Exam: routine medical management DS: Diagnosis Discharge Diagnosis (1) Status post total right knee replacement: Status: Acute DS: Summary Hospital Course Hospital Course: The patient underwent a successful right total knee arthroplasty, they were transferred to PACU and then to the floor to recover. During their stay, their vitals were stable, afebrile at 97.8. Labs were unremarkable, H/H 12.2/35.4. POD 1 they were started on Aspirin 325mg po bid for DVT ppx, they also received Physical Therapy services twice a day. Prior to discharge, their dressing was changed, incision clean dry and intact, new Aquacel dressing applied and the plan was to be discharged home with VNA services. Time Spent with Patient Time attestation: Total time managing care of this patient today ____ minutes. Discharge coordination time: Less than 30 minutes Quality: Safe Use of Opioids Does Pt have an Active Cancer Diagnosis on the Problem List?: No Quality: Stroke Does the patient have a stroke diagnosis?: No Physical Exam Vital Signs: Vital Signs: Last Vital Signs Temp 97.6 F 05/26/23 15:08 Pulse 60 05/26/23 15:08 Resp 20 05/26/23 15:08 BP 149/74 H 05/26/23 15:08 Pulse Ox 97 05/26/23 15:08 O2 Del Method Room Air 05/26/23 15:08 BMI result Body Mass Index 29.8 Const: General: cooperative, healthy appearing and no acute distress Resp: Effort & Inspection: normal respiratory effort and able to speak in complete sentences Cardio: Rate: regular rate Peripheral pulses: Peripheral pulses 2+ throughout GI: Palpation (GI): Soft to palpation Skin: General skin exam: no rashes or lesions noted Extrem: Other: Right knee bandage c/d/i. No erythema or joint effusion. Calf supple nontender. Neurovascularly intact. DS: Data Data Completed and Pending Completed studies during hospitalization [Text1]: Pending at discharge 05/25/23 08:48 Surgical [PTH] Routine Labs on day of discharge: Laboratory Results - last 24 hr 05/26/23 05:32 WBC 9.3 RBC 3.75 L Hgb 11.8 L Hct 34.7 L MCV 92.5 MCH 31.5 MCHC 34.0 RDW 12.8 Plt Count 175 MPV 9.2 L Immature Gran % (Auto) 0.3 Neut % (Auto) 69.6 Lymph % (Auto) 16.5 L Winkler % (Auto) 13.3 H Eos % (Auto) 0.2 Baso % (Auto) 0.1 Lymph # (Auto) 1.5 Winkler # (Auto) 1.2 Eos # (Auto) 0.0 Baso # (Auto) 0.0 Abs Immat Gran (auto) 0.03 Absolute Neuts (auto) 6.4 Absolute Nucleated RBC 0.000 Nucleated RBC % (auto) 0.0 Sodium 138 Potassium 4.8 Chloride 105 Carbon Dioxide 25 Anion Gap 13 BUN 19 H Creatinine 0.73 Estim Creat Clear Calc 98.7 Estimated GFR > 60 Fasting Glucose 111 H Calcium 8.9 D Discharge Plan Discharge Anticipated Discharge Date/Time: 05/27/23 15:11 Patient Disposition: Home Health Service Discharge Diagnosis: s/p RTKA Referrals: Po,Cody Virk MD [Primary Care Provider] - 1 Week Discharge Medications: New celecoxib 200 mg Capsule 200 mg PO BID 30 Days Qty: 60 0RF acetaminophen 325 mg Tablet 650 mg PO Q6H PRN (Reason: Pain, Mild (Pain Scale 1-3)) 30 Days Qty: 240 0RF aspirin 325 mg Tablet 325 mg PO Q12H 42 Days Qty: 84 0RF docusate sodium 100 mg Capsule 100 mg PO BID 30 Days Qty: 60 0RF oxycodone 5 mg Tablet 5 mg PO Q4H PRN (Reason: Pain, Moderate(Pain Scale 4-6)) 7 Days Qty: 42 0RF Rx Instructions: Partial Fill upon patient request. Continued lisinopril 40 mg tablet 40 mg PO DAILY Qty: 90 2RF metoprolol succinate 50 mg tablet extended release 24 hr 75 mg PO DAILY Rx Instructions: 50 mg + 25 mg = 75 mg QD simvastatin 20 mg tablet 20 mg PO DAILY Discontinued acetaminophen [Tylenol] 325 mg Capsule 650 mg PO Q6H PRN (Reason: Pain) Discharge Orders: Discharge Order (Routine); Ordered 05/27/23 Ordered By: Lety Hatfield Diet: Advance to usual diet Activity on Discharge: Use cane or walker Stand Alone Forms: Patient Portal Discharge page Care Plan Goals: Restore fxn to right knee Health Concerns: None Plan of Treatment: Physical Therapy for ROM 0-120, quad strength, gait training. Use walker for ambulation Limit stair climbing, No shower, No tub bath, No driving Continue anticoagulant Keep Aquacel dressing clean, dry and intact. Follow up with orthopedics in 2 weeks Assessment: Stable for d/c
--- NOTE | 2023-05-26 19:15 | W.MHC.F2F ---
Service Date Service Date: 05/26/23 Encounter Date of encounter: 05/27/23 Reasons for Services Signs and symptoms assessed: s/p RTKA. Pt. is considered homebound due to recent surgery. Unable to drive, poor balance, poor gait mechanics. Reason for physical therapy: home safety and mobility, therapeutic exercises, restore joint function, gait/transfer training, assess need for DME and ADL training Homebound: Leaving the home is medically contraindicated at this time without the asist of a device and/or another person due th the listed conditions above and below. Reason homebound: unsteady gait / fall risk, leg weakness, pain with ambulation, pain with transfers, poor balance / fall risk and unable to drive Certification: Based on the above findings, I certify that this patient is confined to the home and needs intermittent correction care, physical therapy and/or speech therapy, or continues to need occupational therapy. The patient is under my care, and I have initiated the establishment of the plan of care. The patient will be followed by a physician who will periodically review the plan of care. Time Spent With Patient Time: Total time managing care of this patient today ____ minutes.
[2023-05-27 03:40] VITALS: BP 137/72; PULSE 76; RESP 18; TEMP 36.6; O2SAT 97
[2023-05-27] MEDS: Lactated Ringers 1,000 ML 100 ML IVCONT (03:47)
[2023-05-27] MEDS: Aspirin 325 MG TABLET PO (05:41)
[2023-05-27 06:04] LABS: MANUAL DIFF FLAG NO
[2023-05-27 06:07] LABS: Basophils Percent Auto 0.1 % (0-2); Eosinophils Absolute Auto 0.1 X10*3/uL (0.0-0.4); Eosinophils Percent Auto 1.4 % (0-4); Hematocrit 35.4 % (42.0-52.0); Hemoglobin 12.2 g/dl (14.0-18.0); Imm Gran Abs Auto 0.02 X10*3/uL (0.00-0.03); Imm Gran Pct Auto 0.3 % (0.0-0.4); Lymphocytes Absolute Auto 1.6 X10*3/uL (1.2-4.9); Lymphocytes Percent Auto 22.2 % (20-40); Mean Corpuscular HGB Conc 34.5 g/dl (31.0-36.0); Mean Corpuscular Hemoglobin 31.9 pg (27.0-33.0); Mean Corpuscular Volume 92.7 fL (80.0-98.0); Mean Platelet Volume 8.9 fL (9.4-12.4); Monocytes Percent Auto 14.2 % (2-11); Neutrophils Absolute Auto 4.3 x10*3/uL (2.0-8.3); Neutrophils Percent Auto 61.8 % (45-73); Platelet Count 161 X10*3/uL (160-400); Red Blood Count 3.82 X10*6/uL (4.60-5.80); Red Cell Distribution Width 13.1 % (11.0-16.0)
[2023-05-27 06:25] LABS: Anion Gap 14 (12-20); Blood Urea Nitrogen 15 mg/dL (9-16); Calcium 8.9 mg/dL (8.4-10.2); Carbon Dioxide 23 mmol/L (22-29); Chloride 107 mmol/L (96-108); Creatinine Clr Calc Pharmacy 104.4; Estimated Glomerular Filt Rate > 60; Glucose Fasting 105 mg/dL (60-99); Potassium 4.7 mmol/L (3.3-5.1); Sodium 139 mmol/L (135-145)
[2023-05-27 07:18] VITALS: BP 137/79; PULSE 81; RESP 18; TEMP 36.6; O2SAT 98
[2023-05-27] MEDS: Atorvastatin Calcium 10 MG TABLET PO (07:41)
[2023-05-27] MEDS: Metoprolol Succinate ER 25 MG TAB.ER.24H 75 MG PO (07:41)
[2023-05-27] MEDS: Celecoxib 200 MG CAPSULE PO (07:41)
[2023-05-27] MEDS: Docusate Sodium 100 MG CAPSULE PO (07:41)
[2023-05-27] MEDS: lisinopriL 40 MG TABLET PO (07:42)
--- NOTE | 2023-05-27 07:50 | MHC.CM.PN ---
PT WILL DC HOME TODAY WITH [facility] VIA FAMILY TRANSPORT
--- NOTE | 2023-05-27 08:24 | MHC.CM.PN ---
pt going home with [facility] today
[2023-05-27] MEDS: oxyCODONE HCl Immed Release 5 MG TABLET 10 MG PO ×2 (10:35→14:16)
[2023-05-27] MEDS: Acetaminophen 325 MG TABLET 650 MG PO (14:16)
== END 2023-05-27 14:17 | disposition home health service (06) | DRG 470 ==
LOC: HO.SSSA 06:02 → HO.S3 10:57
PROVIDERS: Nurse Practitioner; Physician Assistant; Admitting Provider Orthopaedic Surgery; PCP Internal Medicine; Visit Provider Orthopaedic Surgery
PROC: 0SRC0J9 Replacement of Right Knee Joint with Synthetic Substitute, Cemented, Open Approach (ICD-10-PCS; CPT 27447; principal; 2023-05-25 07:30)
DX: M17.11 Unilateral primary osteoarthritis, right knee (principal); E78.00 Pure hypercholesterolemia, unspecified; G89.18 Other acute postprocedural pain; I10 Essential (primary) hypertension; F32.A Depression, unspecified; F41.9 Anxiety disorder, unspecified; Z79.899 Other long term (current) drug therapy
CPT/HCPCS: 36415; 80048; 85014; 85018; 85025; 85027; 86850; 86900; 86901; 86905; 87640; 87641; 88305; 88311; 93005; 97110; 97116; 97162; 97530; C1776; J0690; J1100; J2250; J2795; J3370

== ENCOUNTER → 2023-05-25 05:58 | Outpatient (BNV) | payer MEDICARE, SELFPAY | PROVIDERS: Admitting Provider Orthopaedic Surgery; PCP Internal Medicine; Visit Provider Physician Assistant | DX: M17.11 Unilateral primary osteoarthritis, right knee (principal) | CPT/HCPCS: 99222 ==

== ENCOUNTER → 2023-05-25 05:58 | Outpatient (BNV) | payer MEDICARE, SELFPAY | PROVIDERS: Admitting Provider Orthopaedic Surgery; PCP Internal Medicine; Visit Provider Orthopaedic Surgery | DX: Z47.1 Aftercare following joint replacement surgery (principal); Z96.651 Presence of right artificial knee joint | CPT/HCPCS: 27447; 99024; G0180 ==

== ENCOUNTER 2023-06-11 13:10 | Outpatient (AMB) | payer MEDICARE, SELFPAY ==
--- NOTE | 2023-06-11 13:46 | A.OFFVIS_ITS ---
Intake Intake Visit Reasons: Postop RT TKA 05/25/23 Intake Note: Saulo an 82 year old male presents today for a post operative right TKA, DOS 05/25/23 Patient reports having swelling in his leg and discomfort in the posterior of the upper thigh. Allergies No Known Allergies Allergy (Mild, Verified 06/11/23 13:50) NKA HPI Postop RT TKA 05/25/23 HPI0 Details 82-year-old male who returns to the [facility] today for post-op right TKA, 05/25/[address] Gonzales. He states he has swelling in his leg and discomfort in the posterior aspect of the upper thigh. He is doing well otherwise and has no concerns today. [facility] Medical History Blind left eye Bilateral shoulder pain Low back pain Annual physical exam Rotator cuff rupture COVID-19 virus infection Anxiety and depression Obesity (BMI 30-39.9) Vitamin D deficiency Impaired glucose tolerance Tubular adenoma of colon Hypercholesterolemia Hypertension Dislocation of shoulder, left, closed Urinary frequency Erectile dysfunction Surgical History Hx of cataract extraction Hx of colonoscopy H/O prostatectomy H/O left knee surgery History of rhinoplasty History of tonsillectomy S/P rotator cuff repair Family History Father Acute leukemia Mother No problems noted. Social History Household Members: None Housing: Apartment Are you a primary child care teacher to a significant other at home: No Do you presently have visiting nurse or other home services: No Alcohol intake: former Patient Tobacco Use Status: Never used Tobacco e-Cigarette/Vaping Use: Never Used Second Hand Smoke Exposure: No Advance Directives Date on File: 06/01/20 service: No Current occupational status: retired Cognitive needs: No Hearing needs: No Vision needs: No Review of Systems Const All systems reviewed & are unremarkable except as noted in HPI and below Physical Exam Extrem Other: Right knee: Incision clean, dry and intact. No erythema or joint effusion rom 0- 95 degrees. Calf supple, nontender. NVI. Assessment & Plan Assessment & Plan (1) Status post total right knee replacement: Comment: 05/25/2023 Dr. Gonzales Code(s): Z96.651 - Presence of right artificial knee joint Plan Alvin removed, steri strips applied. He will begin to transition to Outpatient PT to continue working on Gait training, ROM and quad strength. No driving for another 4 weeks. He will require ppx abx for dental procedures. He will f/u in 4 weeks, sooner if needed. Orders: Orders XR knee RT 3V 06/11/23 Z96.651 - Presence of right artificial knee joint Gustavo Gonzales MD PT Evaluation and Treatment 06/11/23 Z96.651 - Presence of right artificial knee joint Enoc Snyder PA-C Patient Instructions: Scribed for Enoc Snyder PA-C, by Abner Barajas medical radiation dosimetrist, on 06/11/2023 at 1:15 PM EST. I, Enoc Snyder PA-C, have personally reviewed and agree with the information entered by the scribe. Coding Level of Care Code Global (29791) Diagnoses Status post total right knee replacement Z96.651
== END 2023-06-11 14:11 | disposition home or self-care (01) ==
PROVIDERS: PCP Internal Medicine; Visit Provider Physician Assistant
DX: Z96.651 Presence of right artificial knee joint (principal)
CPT/HCPCS: 99024

== ENCOUNTER 2023-06-11 16:26 | Outpatient (REF) | payer OTHER, SELFPAY ==
--- NOTE | ~2023-06-11 | XR_ITS ---
EXAMINATION: XR KNEE, RIGHT CLINICAL INFORMATION: Right artificial knee joint COMPARISON: 04/24/2023 TECHNIQUE: Three views of the right knee. FINDINGS: Status post interval total knee arthroplasty. Hardware appears intact. Surgical maxime along the anterior aspect of the knee. Diffuse soft tissue swelling and joint effusion. XR/XR knee RT 3V IMPRESSION: Status post interval total knee arthroplasty. Hardware appears intact.
== END 2023-06-11 16:27 | disposition home or self-care (01) ==
LOC: HO.HOSX 16:26
PROVIDERS: Visit Provider Orthopaedic Surgery
DX: Z47.1 Aftercare following joint replacement surgery (principal); Z96.651 Presence of right artificial knee joint
CPT/HCPCS: 73562; 99212

== ENCOUNTER 2023-07-02 11:10 | Outpatient (AMB) | payer MEDICARE, SELFPAY ==
--- NOTE | 2023-07-02 11:14 | A.OFFPC_ITS ---
Vital Signs 07/02/23 11:15 Height 6 ft Weight 229 lb BMI 31.1 BP 154/98 H Blood Pressure Location Lt brachial Position Sitting Pulse 79 Pulse Source Pulse Oximeter Pulse Oximetry (%) 97 Oxygen Delivery Method Room Air Intake Visit Reasons: Annual Physical Allergies No Known Allergies Allergy (Mild, Verified 07/02/23 11:15) NKA Medication List - Last Reconciled 07/02/23 by Cody Boston MD acetaminophen 650 mg (2 x 325 mg) PO Q6H PRN 30 days aspirin 325 mg PO Q12H 42 days celecoxib 200 mg PO BID 30 days lisinopril 40 mg PO DAILY metoprolol succinate ER 75 mg PO DAILY simvastatin 20 mg PO DAILY Tobacco use date assessed: 05/22/23 Fall risk assessment: No Falls in past year Last assessed Fall Risk: 07/02/23 Dental Screening Dental Screen Date: 07/02/23 Did you have a dental visit in the last 12 months?: Yes Did you have a dental problem in the last 6 months where you did not have access to dental care?: No Was dental information given to patient?: Patient has dentist HPI Annual Physical HPI Details 82-year-old obese male with hypertension , hypercholesterolemia impaired glucose tolerance coming in for physical exam. Patient was last seen in November 2022. Review of the notes patient had a total knee replacement on the right 05/25/2023 on physical therapy. Patient is not happy with the orthopedic surgery- states no communication. states surgery not necessary?? [facility] Medical History (Updated 07/02/23 @ 11:26 by Cody Boston MD) Preoperative clearance Annual physical exam Anxiety and depression Tubular adenoma of colon Urinary frequency Arthritis of right knee Blind left eye Bilateral shoulder pain Low back pain Rotator cuff rupture COVID-19 virus infection Obesity (BMI 30-39.9) Vitamin D deficiency Impaired glucose tolerance Hypercholesterolemia Hypertension Dislocation of shoulder, left, closed Erectile dysfunction Surgical History Hx of cataract extraction Hx of colonoscopy H/O prostatectomy H/O left knee surgery History of rhinoplasty History of tonsillectomy S/P rotator cuff repair Family History Father Acute leukemia Mother No problems noted. Social History (Updated 07/02/23 @ 11:45 by Cody Boston MD) Household Members: None Housing: Apartment Are you a primary medicare interviewer to a significant other at home: No Do you presently have visiting nurse or other home services: No Alcohol intake: former Patient Tobacco Use Status: Never used Tobacco e-Cigarette/Vaping Use: Never Used Second Hand Smoke Exposure: No Advance Directives Date on File: 06/01/20 service: No Current occupational status: retired Cognitive needs: No Hearing needs: No Vision needs: No Questionnaire PHQ-9 Over the last 2 weeks, how often have you been bothered by any of the following problems? 1. Little interest or pleasure in doing things: not at all 2. Feeling down, depressed, or hopeless: not at all 3. Trouble falling or staying asleep, or sleeping too much: not at all 4. Feeling tired or having little energy: not at all 5. Poor appetite or overeating: not at all 6. Feeling bad about yourself - or that you are a failure or have let yourself or your family down: not at all 7. Trouble concentrating on things, such as reading the newspaper or watching television: not at all 8. Moving or speaking so slowly that other people could have noticed. Or the opposite - being so fidgety or restless that you have been moving around a lot more than usual: not at all 9. Thoughts that you would be better off or of hurting yourself in some way: not at all Total score: 0 Depression Screening Interpretation: Negative Depression Screening Done: Yes Source: Developed by Drs. Efraín Cunha, Jenna Loo, Owen Caceres and colleagues, with an educational annette from [employer]. Thrive Questionnaire Date Thrive assessed: 05/26/23 AUDIT C Alcohol Use Questionnaire (AUDIT-C) 1. How often do you have a drink containing alcohol?: Never 2. How many drinks containing alcohol do you have on a typical day when you are drinking?: 1 or 2 (0) 3. How often do you have six or more drinks on one occasion?: Never Total Score: 0 Score Reviewed/Action Taken: No JANE-7 AMB Questionnaire JANE-7 Date JANE - 7 assessed: 12/04/22 Source: Developed by Drs. Efraín Cunha, Owen Hedrick and colleagues, with an educational annette from [employer]. Review of Systems Const Denies poor appetite and Denies weakness Eyes Denies no additional complaints ENT Reports Normal hearing present, Denies dizziness, Denies nasal congestion, Denies tinnitus and Denies sore throat Card Denies chest pain, Denies syncope, Denies rapid heart rate and Denies dyspnea Resp Denies cough and Denies dyspnea GI Denies change in stool character, Reports constipation, Denies diarrhea, Denies nausea and Denies vomiting Denies dysuria and Denies urinary frequency Neuro Reports Normal hearing present, Denies confusion, Denies dizziness, Denies syncope and Denies weakness Psych Denies confusion Physical exam (Primary Care) Vital Signs: Oxygen Delivery Method Room Air 07/02/23 11:15 BMI result Body Mass Index 31.1 Tobacco/Smoking Status: Tobacco use Status Tobacco use date assessed 05/22/23 05/22/23 11:47 Patient Tobacco Use Status Never used Tobacco 05/27/23 07:34 Tobacco use type 04/08/23 14:56 e-Cigarette/Vaping Use Never Used 05/22/23 11:47 Depression Screening Interpretation: Negative Thrive Assessment: Date of Thrive Assessment Date Thrive assessed 05/26/23 05/26/23 12:25 Const General: No confusion Orientation/consciousness: No confusion HENMT Other: R eye blind L good, L impacted cerumen, R TM intact Head: Yes normocephalic Ears: external ears normal Face and sinus: Yes normal facial exam Mouth: moist mucous membranes Throat: Yes tonsils normal Eyes Conjunctivae: conjunctivae normal Pupils: Equal, round and reactive pupils present and Pupil accommodation reflex normal Direct Ophthalmoscopy: normal light reflex Neck Neck: No lymphadenopathy Thyroid: Thyroid normal Chest Chest palpation & inspection: normal inspection of the chest Resp Effort & Inspection: normal respiratory effort and no audible wheezes Auscultation: clear to auscultation bilaterally, no crackles, no wheezes and lung sounds not diminished Cardio Rate: regular rate Rhythm: regular rhythm Peripheral pulses: radial pulses present and dorsalis pedis present GI Palpation (GI): no masses Auscultation: normal bowel sounds and normoactive bowel sounds Rectal Exam - Male: Yes deferred Skin General skin exam: no rashes or lesions noted Rashes: no rashes Neuro Other: R kneestill with swelling General: No confusion Cranial nerves: Yes Equal, round and reactive pupils present and Yes Normal hearing present Cognition (Neuro): normal cognition Gait exam (Neuro): Normal gait present Motor exam (neuro): 5/5 motor strength present throughout Deep tendon reflexes (DTR's): Right brachioradialis reflex intensity grade: 2+, Left brachioradialis reflex intensity grade: 2+, Right patellar reflex intensity grade: 2+ and Left patellar reflex intensity grade: 2+ Extrem General: No edema Assessment and Plan Assessment & Plan (1) Annual physical exam: Code(s): Z00.00 - Encounter for general adult medical examination without abnormal findings (2) Status post total right knee replacement: Comment: 05/25/2023 Dr. Gonzales Code(s): Z96.651 - Presence of right artificial knee joint Plan: Continue with physical therapy and being followed up by orthopedics (3) Obesity (BMI 30-39.9): Code(s): E66.9 - Obesity, unspecified Plan: Diet and exercise (4) Hypertension: Code(s): I10 - Essential (primary) hypertension Qualifiers: Hypertension type: essential hypertension Qualified Code(s): I10 - Essential (primary) hypertension Plan: Continue with blood pressure medication. Decrease salt intake and exercise patient is on lisinopril 40 mg once a day metoprolol 75 mg once a day (5) Hypercholesterolemia: Code(s): E78.00 - Pure hypercholesterolemia, unspecified Plan: Avoid fried foods, chicken skin, eggs, butter margarine, pastries and meat. Be it pork or beef they have a lot of cholesterol LDL goal of less than 130 and triglyceride of less than 150. Last blood work was done in July 2023. Blood work requested patient is on simvastatin 20 mg once a day (6) Impaired glucose tolerance: Code(s): R73.02 - Impaired glucose tolerance (oral) Plan: Decrease the amount of carbohydrate intake, pasta, bread, rice and potatoes are all sugar and that is aside from all the sweet stuff, remember that fruits are good but they are Sweet also. (7) Anemia: Code(s): D64.9 - Anemia, unspecified Plan: This is post surgery. Will include in the blood work anemia workup Orders: Orders Hemoglobin A1c 2 Months R73.02 - Impaired glucose tolerance (oral) Lipid Panel 2 Months E78.00 - Pure hypercholesterolemia, unspecified Comprehensive Met. Panel 2 Months E78.00 - Pure hypercholesterolemia, unspecified Thyroid Stimulating Hormone 2 Months E78.00 - Pure hypercholesterolemia, unspecified Free T4 (Free Thyroxine) 2 Months E78.00 - Pure hypercholesterolemia, unspecified Complete Blood Count Auto Diff 2 Months I10 - Essential (primary) hypertension Ferritin 2 Months D64.9 - Anemia, unspecified IRON PROFILE 2 Months D64.9 - Anemia, unspecified Vitamin B12 and Folate 2 Months I10 - Essential (primary) hypertension Reticulocyte Count 2 Months D64.9 - Anemia, unspecified Medications: New amoxicillin (4 x 500 mg) 2,000 mg orally one hour before the dental procedure; 4 caps 0RF Z96.651 - Presence of right artificial knee joint Coding Level of Care Code Est Pt Prev < 1 yr (00644) Diagnoses Annual physical exam Z00.00 Status post total right knee replacement Z96.651 Obesity (BMI 30-39.9) E66.9 Essential hypertension I10 Hypertension type: essential hypertension Hypercholesterolemia E78.00 Impaired glucose tolerance R73.02 Anemia D64.9
[2023-07-02 11:15] VITALS: BP 154/98; PULSE 79; O2SAT 97; BMI 31.1
== END 2023-07-02 11:59 | disposition home or self-care (01) ==
PROVIDERS: PCP Internal Medicine; Visit Provider Internal Medicine
DX: Z00.00 Encounter for general adult medical examination without abnormal findings (principal); E66.9 Obesity, unspecified; Z68.31 Body mass index [BMI] 31.0-31.9, adult; Z96.651 Presence of right artificial knee joint; I10 Essential (primary) hypertension; E78.00 Pure hypercholesterolemia, unspecified; R73.02 Impaired glucose tolerance (oral); D64.9 Anemia, unspecified
CPT/HCPCS: 99397

== ENCOUNTER 2023-07-09 08:12 | Outpatient (AMB) | payer MEDICARE, SELFPAY ==
[2023-07-09 08:13] VITALS: BMI 31.1
--- NOTE | 2023-07-09 08:13 | MHC.OFFVIS ---
Intake Vital Signs 07/09/23 08:13 Height 6 ft Weight 229 lb BMI 31.1 Intake Visit Reasons: PO-RT TKA 05/25/23 Intake Note: Saulo an 82 year old male presents today for a post operative right TKA, DOS 05/25/23 . Patient states that he has mild intermittent discomfort in his knee. He denies any fevers or chills. He continues to go to formal physical therapy. He is no longer taking narcotics for his discomfort. Allergies No Known Allergies Allergy (Mild, Verified 07/02/23 11:15) NKA Medication List - Last Reconciled 07/09/23 by Gustavo Gonzales MD acetaminophen 650 mg (2 x 325 mg) PO Q6H PRN 30 days amoxicillin 2,000 mg orally one hour before the dental procedure; aspirin 325 mg PO Q12H 42 days celecoxib 200 mg PO BID 30 days lisinopril 40 mg PO DAILY metoprolol succinate ER 75 mg PO DAILY simvastatin 20 mg PO DAILY PFSH Medical History Preoperative clearance Annual physical exam Anxiety and depression Tubular adenoma of colon Urinary frequency Arthritis of right knee Blind left eye Bilateral shoulder pain Low back pain Rotator cuff rupture COVID-19 virus infection Obesity (BMI 30-39.9) Vitamin D deficiency Impaired glucose tolerance Hypercholesterolemia Hypertension Dislocation of shoulder, left, closed Erectile dysfunction Surgical History Hx of cataract extraction Hx of colonoscopy H/O prostatectomy H/O left knee surgery History of rhinoplasty History of tonsillectomy S/P rotator cuff repair Family History Father Acute leukemia Mother No problems noted. Social History Household Members: None Housing: Apartment Are you a primary day care provider to a significant other at home: No Do you presently have visiting nurse or other home services: No Alcohol intake: former Patient Tobacco Use Status: Never used Tobacco e-Cigarette/Vaping Use: Never Used Second Hand Smoke Exposure: No Advance Directives Date on File: 06/01/20 service: No Current occupational status: retired Cognitive needs: No Hearing needs: No Vision needs: No Physical Exam Vital Signs: BMI result Body Mass Index 31.1 Extrem Other: Right knee examination shows that the surgical incision is well healed, no erythema, range of motion from -3 degrees to 120 degrees, his patella tracks well Assessment & Plan Assessment & Plan (1) Status post total right knee replacement: Comment: 05/25/2023 Dr. Gonzales Code(s): Z96.651 - Presence of right artificial knee joint Plan: Mr. Mathews continues to do well after undergoing right total knee replacement surgery on 05/25/2023. He will continue going to formal physical therapy for now. He will gradually transition to a home exercise program. He does know to take antibiotics before any dental work. He will contact me prior to his follow-up appointment in 3 months should any questions or concerns arise. Feel free to call me at any time should questions regarding his orthopedic management arise. Orders: Orders PT Evaluation and Treatment Today Z96.651 - Presence of right artificial knee joint Coding Level of Care Code Global (76680) Diagnoses Status post total right knee replacement Z96.651
== END 2023-07-09 08:47 | disposition home or self-care (01) ==
PROVIDERS: PCP Internal Medicine; Visit Provider Orthopaedic Surgery
DX: Z96.651 Presence of right artificial knee joint (principal)
CPT/HCPCS: 99024

== ENCOUNTER → 2023-07-09 08:12 | Outpatient (BNVA) | payer MEDICARE, SELFPAY | PROVIDERS: PCP Internal Medicine; Visit Provider Orthopaedic Surgery ==

== ENCOUNTER 2023-07-29 09:04 | Outpatient (AMB) | payer MEDICARE, SELFPAY ==
[2023-07-29 09:10] VITALS: BP 150/90; PULSE 76; O2SAT 97; BMI 30.4
--- NOTE | 2023-07-29 09:10 | MHC.PC.OV ---
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: No Accompanied by: Self / Same As Patient Allergies No Known Allergies Allergy (Mild, Verified 07/29/23 09:43) NKA Medication List - Last Reconciled 07/29/23 by Tio Granado PA-C acetaminophen 650 mg (2 x 325 mg) PO Q6H PRN 30 days amoxicillin 2,000 mg orally one hour before the dental procedure; aspirin 325 mg PO Q12H 42 days celecoxib 200 mg PO BID 30 days lisinopril 40 mg PO DAILY metoprolol succinate ER 75 mg PO DAILY simvastatin 20 mg PO DAILY Tobacco use date assessed: 05/22/23 Fall risk assessment: No Falls in past year Last assessed Fall Risk: 07/29/23 Dental Screening Dental Screen Date: 07/29/23 Did you have a dental visit in the last 12 months?: Yes Did you have a dental problem in the last 6 months where you did not have access to dental care?: No Was dental information given to patient?: Patient has dentist HPI ear irrigation HPI Details Patient is an 82 year male here today for ear irrigation. [facility] Medical History Preoperative clearance Annual physical exam Anxiety and depression Tubular adenoma of colon Urinary frequency Arthritis of right knee Blind left eye Bilateral shoulder pain Low back pain Rotator cuff rupture COVID-19 virus infection Obesity (BMI 30-39.9) Vitamin D deficiency Impaired glucose tolerance Hypercholesterolemia Hypertension Dislocation of shoulder, left, closed Erectile dysfunction Surgical History Hx of cataract extraction Hx of colonoscopy H/O prostatectomy H/O left knee surgery History of rhinoplasty History of tonsillectomy S/P rotator cuff repair Family History Father Acute leukemia Mother No problems noted. Social History Household Members: None Housing: Apartment Are you a primary skin care consultant to a significant other at home: No Do you presently have visiting nurse or other home services: No Alcohol intake: former Patient Tobacco Use Status: Never used Tobacco e-Cigarette/Vaping Use: Never Used Second Hand Smoke Exposure: No Advance Directives Date on File: 06/01/20 service: No Current occupational status: retired Cognitive needs: No Hearing needs: No Vision needs: No Questionnaire Thrive Questionnaire Date Thrive assessed: 05/26/23 JANE-7 AMB Questionnaire JANE-7 Date JANE - 7 assessed: 12/04/22 Source: Developed by Drs. Efraín Cunha, Jenna Loo, Owen Caceres and colleagues, with an educational annette from [employer]. Physical exam (Primary Care) Vital Signs: Last Vital Signs Pulse 76 07/29/23 09:10 BP 150/90 H 07/29/23 09:10 Pulse Ox 97 07/29/23 09:10 Oxygen Delivery Method Room Air 07/29/23 09:10 BMI result Body Mass Index 30.4 Tobacco/Smoking Status: Tobacco use Status Tobacco use date assessed 05/22/23 07/29/23 09:16 Patient Tobacco Use Status Never used Tobacco 07/29/23 09:16 Tobacco use type 04/08/23 14:56 e-Cigarette/Vaping Use Never Used 07/29/23 09:16 Thrive Assessment: Date of Thrive Assessment Date Thrive assessed 05/26/23 07/29/23 09:16 Office Procedures Cerumen Removal From which ear canal was the cerumen removed: left Removal: irrigation and otoscope w/curette Notes: no complications [id number] Irrigation/Lavage Assessment and Plan Assessment & Plan (1) Impacted cerumen, left ear: Code(s): H61.22 - Impacted cerumen, left ear Plan: Patient underwent left ear irrigation without any side effect. Large amount of cerumen removed. Patient tolerated procedure well. Coding Level of Care Code Est Pt Level 3 (37814) Diagnoses Impacted cerumen, left ear H61.22 CPT Codes Office Procedure - CPT: 64866-Pfi Irrigation/Lavage ([id number])
== END 2023-07-29 09:59 | disposition home or self-care (01) ==
PROVIDERS: PCP Internal Medicine; Visit Provider Physician Assistant
DX: H61.22 Impacted cerumen, left ear (principal)
CPT/HCPCS: 69209; 99213

== ENCOUNTER 2023-08-11 10:00 | Outpatient (RCR) | payer MEDICARE, SELFPAY ==
--- NOTE | 2023-06-15 16:25 | MHC.PT.EP ---
[facility] [place] Office [place] Office [place] Office [address] Shreya Melendrez [address] [phone] F: [phone] F: [phone] F: [phone] F: [phone] Physical Therapy Plan of Care Date of Evaluation: 06/15/23 Date of Surgery: 05/25/23 Diagnosis: Presence of right artificial knee joint Status post total right knee replacement Assessment: Pt is a pleasant 82yo M who presents to PT s/p R elective TKA with Dr. Gonzales on 05/25/23. He presents to PT with expected impairments in pain, decreased R knee ROM, decreased strength, decreased balance/proprioception, and impaired gait. He is limited functionally by getting in/out of bed, prolonged standing, prolonged walking, and stair navigation. He is an excellent candidate for skilled PT in order to address current impairments to facilitate return to PLOF. He is recommended to be seen 2x/week for 4 weeks and will be reassessed at that time Frequency and Duration: The patient will be seen 2x/week for 4 weeks Short Term Goals: Pt will be I with HEP to promote self management of symptoms Pt will improve R knee extension by at least 5 degrees Pt will improve R knee flexion by at least 10 degrees Group Home Goals: Pt will achieve full ROM and strength all planes of R knee Pt will ambulate > 100' without AD with improved gait mechanics on multidirectional path with steady gait Pt will ascend/descend 1 flight of stairs with reciprocal pattern Treatment Plan: Modalities to reduce pain, spasms and effusion. Manual therapy to restore motion and function. Therapeutic exercise to improve strength and flexibility. Neuromuscular re-education for posture and balance. Therapeutic activities to return to functional activities of daily living. Electronically signed by: Mellisa Maldonado, PT, DPT Please sign and return to therapist. Thank you for your referral.
--- NOTE | 2023-08-11 13:54 | MHC.PT.DC ---
[facility] [place] Office [place] Office [place] Office [address] Shreya Melendrez [address] [phone] F: [phone] F: [phone] F: [phone] F: [phone] Physical Therapy Discharge Report Diagnosis: Presence of right artificial knee joint Status post total right knee replacement Date of Surgery: 05/25/23 Date of Evaluation: 06/15/23 Date of Discharge: 08/11/23 Treatments to Date: 15 Cancellations to Date: 0 No Shows to Date: 0 Discharge Status: Improved Function Discharge Summary: Pt has made excellent progress since SOC. He has made good progress toward his STGs and LTGs. He has 120 degrees right knee flexion and -5 degrees right knee extension. He demonstrates improvements in mobility and is able to ambulate without AD on multidirectional path with steady, safe gait. He is being D/C to [facility] at this time. Provided pt with printed, updated copy of [facility] Electronically signed by: Mellisa Maldonado, PT, DPT Please sign and return to therapist. Thank you for your referral.
== END 2023-08-11 13:54 | disposition home or self-care (01) ==
LOC: HO.PT 10:00
PROVIDERS: PCP Internal Medicine; Visit Provider Physician Assistant
DX: Z96.651 Presence of right artificial knee joint (principal)
CPT/HCPCS: 97110; 97150; 97162; 97530

== ENCOUNTER 2023-10-05 08:12 | Outpatient (REF) | payer OTHER, SELFPAY ==
[2023-10-05 08:39] LABS: MANUAL DIFF FLAG NO
[2023-10-05 08:52] LABS: Basophils Percent Auto 0.4 % (0-2); Eosinophils Absolute Auto 0.2 X10*3/uL (0.0-0.4); Eosinophils Percent Auto 4.6 % (0-4); Hematocrit 41.8 % (42.0-52.0); Hemoglobin 14.2 g/dl (14.0-18.0); Imm Gran Abs Auto 0.01 X10*3/uL (0.00-0.03); Imm Gran Pct Auto 0.2 % (0.0-0.4); Immature Retic Fraction 8.8 % (2.3-13.4); Lymphocytes Absolute Auto 1.8 X10*3/uL (1.2-4.9); Lymphocytes Percent Auto 36.7 % (20-40); Mean Corpuscular Hemoglobin 30.4 pg (27.0-33.0); Mean Corpuscular Volume 89.5 fL (80.0-98.0); Mean Platelet Volume 8.6 fL (9.4-12.4); Monocytes Absolute Auto 0.6 X10*3/uL (0.1-1.2); Monocytes Percent Auto 12.4 % (2-11); Neutrophils Absolute Auto 2.3 x10*3/uL (2.0-8.3); Neutrophils Percent Auto 45.7 % (45-73); Platelet Count 188 X10*3/uL (160-400); Red Blood Count 4.67 X10*6/uL (4.60-5.80); Red Cell Distribution Width 13.1 % (11.0-16.0); Retic HGB Equivalent 34.5 pg (30.0-35.0); Reticulocyte Percent 1.1 % (0.5-1.8); Reticulocytes Absolute 0.052 X10*6/uL (0.026-0.095)
[2023-10-05 09:00] LABS: Estimated Average Glucose 120 mg/dL; Hemoglobin A1c % 5.8 % (<6.0)
[2023-10-05 09:26] LABS: Alanine Aminotransferase 9 U/L (0-40); Albumin Level 3.9 g/dL (3.5-5.0); Alkaline Phosphatase 47 U/L (39-117); Anion Gap 16 (12-20); Aspartate Amino Transferase 15 U/L (5-37); Bilirubin Total 0.6 mg/dL (0.0-1.0); Blood Urea Nitrogen 14 mg/dL (9-16); Calcium 9.9 mg/dL (8.4-10.2); Carbon Dioxide 27 mmol/L (22-29); Chloride 103 mmol/L (96-108); Cholesterol 151 mg/dL (<200); Estimated Glomerular Filt Rate > 60; Glucose Random 115 mg/dL (60-115); HDL Cholesterol 39 mg/dL (>40); Iron 100 mcg/dL (45-160); LDL Cholesterol Calculated 95 mg/dL (<100); Percent Iron Saturation 40 % (15-50); Potassium 4.7 mmol/L (3.3-5.1); Sodium 141 mmol/L (135-145); Total Iron Binding Capacity 249 mcg/dL (228-428); Total Protein 7.2 g/dL (6.5-8.0); Triglycerides 86 mg/dL (<150); Unsaturated Iron Binding 149 ug/dL
[2023-10-05 09:42] LABS: Ferritin 169 ng/mL (20-250); Free T4 (Free Thyroxine) 0.93 ng/dL (0.71-1.85); Thyroid Stimulating Hormone 1.28 uIU/mL (0.32-4.0)
[2023-10-05 09:53] LABS: Folate 11.9 ng/mL (> or = 4.0)
[2023-10-05 10:23] LABS: Vitamin B12 360 pg/mL (200-900)
== END 2023-10-05 08:13 | disposition home or self-care (01) ==
LOC: HO.LAB 08:12
PROVIDERS: PCP Internal Medicine; Visit Provider Internal Medicine
DX: E78.00 Pure hypercholesterolemia, unspecified (principal); I10 Essential (primary) hypertension; D64.9 Anemia, unspecified; R73.02 Impaired glucose tolerance (oral)
CPT/HCPCS: 36415; 80053; 80061; 82607; 82728; 82746; 83036; 83540; 84439; 84443; 85025; 85045

== ENCOUNTER 2023-10-09 14:02 | Outpatient (AMB) | payer MEDICARE, SELFPAY ==
[2023-10-09 14:14] VITALS: BP 124/86; PULSE 67; O2SAT 99; BMI 30.1
--- NOTE | 2023-10-09 14:14 | A.OFFPC_ITS ---
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: No Accompanied by: Self / Same As Patient Allergies No Known Allergies Allergy (Mild, Verified 10/09/23 14:15) NKA Tobacco use date assessed: 10/09/23 Fall risk assessment: No Falls in past year Last assessed Fall Risk: 10/09/23 Dental Screening Dental Screen Date: 10/09/23 Did you have a dental visit in the last 12 months?: No Did you have a dental problem in the last 6 months where you did not have access to dental care?: No Was dental information given to patient?: Patient has dentist HPI 3 month f/u HPI Details 83-year-old obese male with a history of hypertension hypercholesterolemia impaired glucose tolerance and history of right total knee replacement last seen in July 2023 comes in for follow-up. Patient is upset with ortho and has been rambling about this. s/p R knee replacement havng pain. [facility] Medical History (Reviewed 07/09/23 @ 08:13 by Jennifer Morales [facility]) Preoperative clearance Annual physical exam Anxiety and depression Tubular adenoma of colon Urinary frequency Arthritis of right knee Blind left eye Bilateral shoulder pain Low back pain Rotator cuff rupture COVID-19 virus infection Obesity (BMI 30-39.9) Vitamin D deficiency Impaired glucose tolerance Hypercholesterolemia Hypertension Dislocation of shoulder, left, closed Erectile dysfunction Surgical History Hx of cataract extraction Hx of colonoscopy H/O prostatectomy H/O left knee surgery History of rhinoplasty History of tonsillectomy S/P rotator cuff repair Family History Father Acute leukemia Mother No problems noted. Social History Household Members: None Housing: Apartment Are you a primary medicare sales representative to a significant other at home: No Do you presently have visiting nurse or other home services: No Alcohol intake: former Patient Tobacco Use Status: Never used Tobacco e-Cigarette/Vaping Use: Never Used Second Hand Smoke Exposure: No Advance Directives Date on File: 06/01/20 service: No Current occupational status: retired Cognitive needs: No Hearing needs: No Vision needs: No Questionnaire PHQ-9 Over the last 2 weeks, how often have you been bothered by any of the following problems? 1. Little interest or pleasure in doing things: not at all 2. Feeling down, depressed, or hopeless: not at all 3. Trouble falling or staying asleep, or sleeping too much: not at all 4. Feeling tired or having little energy: not at all 5. Poor appetite or overeating: not at all 6. Feeling bad about yourself - or that you are a failure or have let yourself or your family down: not at all 7. Trouble concentrating on things, such as reading the newspaper or watching television: not at all 8. Moving or speaking so slowly that other people could have noticed. Or the opposite - being so fidgety or restless that you have been moving around a lot more than usual: not at all 9. Thoughts that you would be better off or of hurting yourself in some way: not at all Total score: 0 Depression Screening Interpretation: Negative Depression Screening Done: Yes 08030 - PHQ-9 Billing: Yes Source: Developed by Drs. Efraín Cunha, Jenna Loo, Owen Caceres and colleagues, with an educational annette from [employer]. Thrive Questionnaire Date Thrive assessed: 10/09/23 I am a: Patient What is your living situation today?: I have a steady place to live Within the past 12 months, did the food you bought not last and you didn't have the money to get more?: Never true Within the past 12 months, did you worry whether your food would run out before you got money to buy more?: Never true Do you have trouble paying for medicines?: No Do you have trouble getting transportation to medical appointments?: No Do you have trouble paying your heating and electricity bill?: No Do you have trouble taking care of your child, family member or friend?: No Do you have trouble with day-to-day activities such as bathing, preparing meals, shopping, managing finances, etc.?: No Are you currently unemployed and looking for a job?: No Are you interested in more education?: No Please select the resources that you would like help with: None Currently or been in a relationship where the following occur: no concerns reported THRIVE Score: 0 AUDIT C Alcohol Use Questionnaire (AUDIT-C) 1. How often do you have a drink containing alcohol?: Never 2. How many drinks containing alcohol do you have on a typical day when you are drinking?: 1 or 2 (0) 3. How often do you have six or more drinks on one occasion?: Never Total Score: 0 Score Reviewed/Action Taken: No JANE-7 AMB Questionnaire JANE-7 Date JANE - 7 assessed: 12/04/22 Source: Developed by Drs. Efraín Cunha, Jenna Loo, Owen Caceres and colleagues, with an educational annette from [employer]. Physical exam (Primary Care) Vital Signs: Last Vital Signs Pulse 67 10/09/23 14:14 BP 124/86 10/09/23 14:14 Pulse Ox 99 10/09/23 14:14 Oxygen Delivery Method Room Air 10/09/23 14:14 BMI result Body Mass Index 30.1 Tobacco/Smoking Status: Tobacco use Status Tobacco use date assessed 10/09/23 10/09/23 14:21 Patient Tobacco Use Status Never used Tobacco 10/09/23 14:21 Tobacco use type 04/08/23 14:56 e-Cigarette/Vaping Use Never Used 10/09/23 14:21 PHQ-9: PHQ-9 Score PHQ-9: Total score 0 10/09/23 14:21 Depression Screening Interpretation: Negative Thrive Assessment: Date of Thrive Assessment Date Thrive assessed 10/09/23 10/09/23 14:21 Currently or been in a relationship where the following occur: no concerns reported Const General: alert; No acute distress Eyes Conjunctivae: conjunctivae normal Resp Auscultation: clear to auscultation bilaterally Cardio Rate: regular rate Rhythm: regular rhythm GI Inspection: Yes normal to inspection Extrem General: Yes normal to inspection and No edema Assessment and Plan Assessment & Plan (1) Hypertension: Code(s): I10 - Essential (primary) hypertension Qualifiers: Hypertension type: essential hypertension Qualified Code(s): I10 - Essential (primary) hypertension Plan: Continue with blood pressure medication. Decrease salt intake and exercise takes lisinopril 40 mg once a day metoprolol 75 mg once a day (2) Hypercholesterolemia: Code(s): E78.00 - Pure hypercholesterolemia, unspecified Plan: Avoid fried foods, chicken skin, eggs, butter margarine, pastries and meat. Be it pork or beef they have a lot of cholesterol LDL goal of less than 130 and triglyceride of less than 150 presently on simvastatin 20 mg once a day (3) Obesity (BMI 30-39.9): Code(s): E66.9 - Obesity, unspecified Plan: Diet and exercise (4) Impaired glucose tolerance: Code(s): R73.02 - Impaired glucose tolerance (oral) Plan: Decrease the amount of carbohydrate intake, pasta, bread, rice and potatoes are all sugar and that is aside from all the sweet stuff, remember that fruits are good but they are Sweet also. (5) Anemia: Code(s): D64.9 - Anemia, unspecified Plan: Resolved (6) Status post total right knee replacement: Comment: 05/25/2023 Dr. Gonzales Code(s): Z96.651 - Presence of right artificial knee joint Plan: will be seeing ORtho next thursday Coding Level of Care Code Est Pt Level 4 (63020) Diagnoses Essential hypertension I10 Hypertension type: essential hypertension Hypercholesterolemia E78.00 Obesity (BMI 30-39.9) E66.9 Impaired glucose tolerance R73.02 Anemia D64.9 Status post total right knee replacement Z96.651
== END 2023-10-09 15:41 | disposition home or self-care (01) ==
PROVIDERS: PCP Internal Medicine; Visit Provider Internal Medicine
DX: I10 Essential (primary) hypertension (principal); Z68.30 Body mass index [BMI] 30.0-30.9, adult; E78.00 Pure hypercholesterolemia, unspecified; E66.9 Obesity, unspecified; R73.02 Impaired glucose tolerance (oral); D64.9 Anemia, unspecified; Z96.651 Presence of right artificial knee joint
CPT/HCPCS: 99214

== ENCOUNTER 2023-10-13 07:58 | Outpatient (REF) | payer OTHER, SELFPAY ==
--- NOTE | ~2023-10-13 | XR_ITS ---
EXAMINATION: XR KNEE, RIGHT CLINICAL INFORMATION: Pain in right knee. COMPARISON: 06/11/2023 TECHNIQUE: 3 views of the right knee. FINDINGS: Redemonstration of total knee arthroplasty. Hardware appears intact. [place] have been removed. Diffuse soft tissue swelling and large joint effusion redemonstrated. XR/XR knee RT 3V IMPRESSION: 1. Redemonstration of total knee arthroplasty. Hardware appears intact. 2. Diffuse soft tissue swelling and large joint effusion redemonstrated.
== END 2023-10-13 07:59 | disposition home or self-care (01) ==
LOC: HO.HOSX 07:58
PROVIDERS: Visit Provider Orthopaedic Surgery
DX: M25.561 Pain in right knee (principal)
CPT/HCPCS: 73562

== ENCOUNTER 2023-10-13 08:14 | Outpatient (AMB) | payer OTHER, SELFPAY ==
[2023-10-13 08:18] VITALS: BMI 30.1
--- NOTE | 2023-10-13 08:18 | MHC.OFFVIS ---
Intake Vital Signs 10/13/23 08:18 Height 6 ft Weight 222 lb BMI 30.1 Intake Visit Reasons: OV-RT TKA 05/25/23 DR-Follow up Intake Note: Saulo is a 83 year old male who presents for a post operative Right TKA on 05/25/2023 . The patient reports mild intermittent discomfort in his knee. He denies any fevers or chills. He continues with his home stretching program. He does not take any medicines for his discomfort. Allergies No Known Allergies Allergy (Mild, Verified 10/13/23 08:41) NKA Medication List - Last Reconciled 10/13/23 by Gustavo Gonzales MD acetaminophen 650 mg (2 x 325 mg) PO Q6H PRN 30 days amoxicillin 2,000 mg (4 x 500 mg) PO ONCE aspirin 325 mg PO Q12H 42 days celecoxib 200 mg PO BID 30 days lisinopril 40 mg PO DAILY metoprolol succinate ER 75 mg (1.5 x 50 mg) PO DAILY simvastatin 20 mg PO DAILY PFSH Medical History Preoperative clearance Annual physical exam Anxiety and depression Tubular adenoma of colon Urinary frequency Arthritis of right knee Blind left eye Bilateral shoulder pain Low back pain Rotator cuff rupture COVID-19 virus infection Obesity (BMI 30-39.9) Vitamin D deficiency Impaired glucose tolerance Hypercholesterolemia Hypertension Dislocation of shoulder, left, closed Erectile dysfunction Surgical History Hx of cataract extraction Hx of colonoscopy H/O prostatectomy H/O left knee surgery History of rhinoplasty History of tonsillectomy S/P rotator cuff repair Family History Father Acute leukemia Mother No problems noted. Social History Household Members: None Housing: Apartment Are you a primary career development counselor to a significant other at home: No Do you presently have visiting nurse or other home services: No Alcohol intake: former Patient Tobacco Use Status: Never used Tobacco e-Cigarette/Vaping Use: Never Used Second Hand Smoke Exposure: No Advance Directives Date on File: 06/01/20 service: No Current occupational status: retired Cognitive needs: No Hearing needs: No Vision needs: No Physical Exam Vital Signs: BMI result Body Mass Index 30.1 Const Other: Well-nourished well-developed very friendly male awake alert and oriented x3 in no acute distress Bilateral lower extremity examination shows good capillary refill, no skin lesions noted, normal sensation light touch right knee examination shows that the surgical incision is well healed, no erythema, full active extension and flexion to 115 degrees, his patella tracks well Results Reviewed Results Reviewed: X-rays of the patient's right knee taken today show a total knee arthroplasty in good position with no signs of loosening, no acute bony abnormalities Assessment & Plan Assessment & Plan (1) Right knee pain: Code(s): M25.561 - Pain in right knee Plan Mr. Mathews continues to do well after undergoing right total knee replacement surgery on 05/25/2023. He will continue with his home exercise program. He does know to take antibiotics before any dental work. Will contact me prior to his annual follow-up appointment should any questions or concerns arise. Feel free to call me at any time should questions regarding his orthopedic management arise. I spent 22 minutes in reviewing the patient's records and imaging studies, seeing the patient and documenting in the medical record. Orders: Orders XR knee RT 3V Today M25.561 - Pain in right knee Medications: New amoxicillin Take four caps (2,000 mg) one hour before any dental work 2,000 mg (4 x 500 mg) PO ONCE 20 caps 0RF Coding Level of Care Code Est Pt Level 2 (39561) Diagnoses Right knee pain M25.561
== END 2023-10-13 09:11 | disposition home or self-care (01) ==
PROVIDERS: PCP Internal Medicine; Visit Provider Orthopaedic Surgery
DX: M25.561 Pain in right knee (principal); Z96.651 Presence of right artificial knee joint
CPT/HCPCS: 99213

== ENCOUNTER 2023-11-17 08:41 | Outpatient (AMB) | payer OTHER, SELFPAY ==
[2023-11-17 08:44] VITALS: BMI 30.1
--- NOTE | 2023-11-17 08:44 | MHC.OFFVIS ---
Intake Vital Signs 11/17/23 08:44 Height 6 ft Weight 222 lb BMI 30.1 Intake Visit Reasons: OV-RT TKA 05/25/23 DR/Pain follow up Intake Note: Saulo is a 83 year old male who presents for a follow up of pain after his Right TKA on 05/25/2023 . The patient states that he recently aggravated his right knee while kneeling for an extended period of time while cleaning the floors at his home. The patient denies any fevers or chills. He has not take any medicines for his discomfort. He states that he has not able to walk long distances without discomfort. He denies any locking or giving way. The patient states that he would like to return to the work force at some point in the near future but does not think that he could stand for extended periods of time. Allergies No Known Allergies Allergy (Mild, Verified 11/17/23 08:51) NKA Medication List - Last Reconciled 11/17/23 by Gustavo Gonzales MD acetaminophen 650 mg (2 x 325 mg) PO Q6H PRN 30 days amoxicillin 2,000 mg (4 x 500 mg) PO ONCE amoxicillin 2,000 mg (4 x 500 mg) PO ONCE aspirin 325 mg PO Q12H 42 days celecoxib 200 mg PO BID 30 days lisinopril 40 mg PO DAILY metoprolol succinate ER 75 mg (1.5 x 50 mg) PO DAILY simvastatin 20 mg PO DAILY PFSH Medical History Preoperative clearance Annual physical exam Anxiety and depression Tubular adenoma of colon Urinary frequency Arthritis of right knee Blind left eye Bilateral shoulder pain Low back pain Rotator cuff rupture COVID-19 virus infection Obesity (BMI 30-39.9) Vitamin D deficiency Impaired glucose tolerance Hypercholesterolemia Hypertension Dislocation of shoulder, left, closed Erectile dysfunction Surgical History Hx of cataract extraction Hx of colonoscopy H/O prostatectomy H/O left knee surgery History of rhinoplasty History of tonsillectomy S/P rotator cuff repair Family History Father Acute leukemia Mother No problems noted. Social History Household Members: None Housing: Apartment Are you a primary career education teacher to a significant other at home: No Do you presently have visiting nurse or other home services: No Alcohol intake: former Patient Tobacco Use Status: Never used Tobacco e-Cigarette/Vaping Use: Never Used Second Hand Smoke Exposure: No Advance Directives Date on File: 06/01/20 service: No Current occupational status: retired Cognitive needs: No Hearing needs: No Vision needs: No Physical Exam Vital Signs: BMI result Body Mass Index 30.1 Const Other: Well-nourished well-developed very friendly male awake alert and oriented x3 in no acute distress Extrem Other: Right knee examination shows that the surgical incision is well healed, no erythema, full active extension and flexion to 120 degrees with minimal discomfort, no instability Results Reviewed Results Reviewed: X-rays of the patient's right knee taken on 10/13/2023 show a total knee arthroplasty in good position with no signs of loosening, no acute bony abnormalities Assessment & Plan Assessment & Plan (1) Right knee pain: Code(s): M25.561 - Pain in right knee Plan Mr. Mathews presents with continued discomfort in his right knee after undergoing right total knee replacement surgery on 05/25/2023. The patient did recently aggravate his knee while kneeling on it for an extended period of time. Activity modifications were discussed at length with the patient. There does not appear to be any damage to his total knee arthroplasty. I discussed with the patient the fact that his symptoms should continue to improve over the next few months. He is anxious to get better as soon as possible because he wants to find a job. Thus, I will refer him to Dr. Fritz from the pain management Center here at [facility] to see if the patient would be a candidate for a nerve block. The patient does know to take antibiotics before any dental work. He will contact me prior to his follow-up appointment in 3 months should any questions or concerns arise. Feel free to call me at any time should questions regarding his orthopedic management arise. I spent 19 minutes in reviewing the patient's records and imaging studies, seeing the patient and documenting in the medical record. Orders: Referrals Pain Management Referral M25.561 - Pain in right knee Coding Level of Care Code Est Pt Level 2 (33416) Diagnoses Right knee pain M25.561
== END 2023-11-17 09:03 | disposition home or self-care (01) ==
PROVIDERS: PCP Internal Medicine; Visit Provider Orthopaedic Surgery
DX: M25.561 Pain in right knee (principal); Z96.651 Presence of right artificial knee joint
CPT/HCPCS: 99213

== ENCOUNTER → 2023-11-17 08:41 | Outpatient (BNVA) | payer OTHER, SELFPAY | PROVIDERS: PCP Internal Medicine; Visit Provider Orthopaedic Surgery ==

== ENCOUNTER 2023-11-23 08:33 | Outpatient (AMB) | payer OTHER, SELFPAY ==
--- NOTE | 2023-11-23 08:38 | A.OFFVIS_ITS ---
Intake Vital Signs 11/23/23 08:40 Height 6 ft Weight 221 lb BMI 30.0 BP 160/96 H Blood Pressure Location Lt brachial Position Sitting Respiration 12 Pulse 76 Pulse Source Pulse Oximeter Pulse Oximetry (%) 97 Oxygen Delivery Method Room Air Intake Visit Reasons: R Knee Nerve Block Allergies No Known Allergies Allergy (Mild, Verified 11/23/23 08:42) NKA Medication List - Last Reconciled 11/23/23 by Lilia Bowser LPN acetaminophen 650 mg (2 x 325 mg) PO Q6H PRN 30 days amoxicillin 2,000 mg (4 x 500 mg) PO ONCE aspirin 325 mg PO Q12H 42 days celecoxib 200 mg PO BID 30 days lisinopril 40 mg PO DAILY metoprolol succinate ER 75 mg (1.5 x 50 mg) PO DAILY simvastatin 20 mg PO DAILY HPI R Knee Nerve Block HPI Details 83-year-old male who presents today to t he office for a right knee nerve block. The patient was referred to us by Dr. Gonzales for persistent right knee pain for six months. The patient had right total knee replacement surgery on 05/25/2023. Pain is described as [id number] sensations on the lateral aspect of his right knee. The pain is described as 0?5/10 in intensity. It is worse at night. He recently aggravated his right knee while kneeling for an extended period of time while cleaning the floors at his home. He states that he is not able to walk long distances without discomfort. He is unable to go to sleep or do his daily activities. He denies locking or giving way. He could stand for extended periods of time. He has not taken any medicine for his discomfort. He avoids taking gabapentin due to hypertension. He has completed formal physical therapy. He continues with his home exercise program.? [facility] Medical History Preoperative clearance Annual physical exam Anxiety and depression Tubular adenoma of colon Urinary frequency Arthritis of right knee Blind left eye Bilateral shoulder pain Low back pain Rotator cuff rupture COVID-19 virus infection Obesity (BMI 30-39.9) Vitamin D deficiency Impaired glucose tolerance Hypercholesterolemia Hypertension Dislocation of shoulder, left, closed Erectile dysfunction Surgical History Hx of cataract extraction Hx of colonoscopy H/O prostatectomy H/O left knee surgery History of rhinoplasty History of tonsillectomy S/P rotator cuff repair Family History Father Acute leukemia Mother No problems noted. Social History Household Members: None Housing: Apartment Are you a primary landcare officer to a significant other at home: No Do you presently have visiting nurse or other home services: No Alcohol intake: former Patient Tobacco Use Status: Never used Tobacco e-Cigarette/Vaping Use: Never Used Second Hand Smoke Exposure: No Advance Directives Date on File: 06/01/20 service: No Current occupational status: retired Cognitive needs: No Hearing needs: No Vision needs: No Review of Systems Const All systems reviewed & are unremarkable except as noted in HPI and below Physical Exam Vital Signs: Last Vital Signs Pulse 76 11/23/23 08:40 Resp 12 11/23/23 08:40 BP 160/96 H 11/23/23 08:40 Pulse Ox 97 11/23/23 08:40 Oxygen Delivery Method Room Air 11/23/23 08:40 BMI result Body Mass Index 30.0 General: Appears afebrile. Alert and oriented. Mood and affect appropriate. Follows and participates in conversation appropriately. Respiratory effort is unlabored. Able to transition from sit to stand unassisted. Ambulates with bilaterally normal heel strike and toe off. There is a well healed midline incision on the left knee. There is a mild soft tissue swelling around to the right knee, which is not p articularly tender to palpation. Results Reviewed Results Reviewed: No imaging is available for review. Assessment & Plan Assessment & Plan (1) Right knee pain: Code(s): M25.561 - Pain in right knee (2) Status post total right knee replacement: Comment: 05/25/2023 Dr. Gonzales Code(s): Z96.651 - Presence of right artificial knee joint Plan Discussed peripheral nerve stimulators vs. genicular nerve ablation as a possible treatment option for his lateral right knee pain. However, since he has not had any trial of neuropathic medications yet, I prescribed gabapentin 300 mg QHS. I advised the patient to discontinue the medication if he experienced feeling groggy or sleepy from the medication. The patient will follow up in two weeks to assess the response. Scribed for Dr. Fritz by Adryan Olson, medical legal investigator, on 11/23/2023. I, Dr. Fritz, have personally reviewed and agree with the information entered by the scribe. Medications: New gabapentin 300 mg PO BEDTIME 30 caps 0RF Coding Level of Care Code New Pt Level 3 (54757) Diagnoses Right knee pain M25.561 Status post total right knee replacement Z96.651
[2023-11-23 08:40] VITALS: BP 160/96; PULSE 76; RESP 12; O2SAT 97
== END 2023-11-23 09:04 | disposition home or self-care (01) ==
PROVIDERS: PCP Internal Medicine; Visit Provider Internal Medicine
DX: M25.561 Pain in right knee (principal); Z96.651 Presence of right artificial knee joint
CPT/HCPCS: 99203

== ENCOUNTER → 2023-11-23 08:33 | Outpatient (BNVA) | payer OTHER, SELFPAY | PROVIDERS: PCP Internal Medicine; Visit Provider Internal Medicine ==

== ENCOUNTER → 2023-12-07 08:26 | Outpatient (BNVA) | payer OTHER, SELFPAY | PROVIDERS: PCP Internal Medicine; Visit Provider Internal Medicine ==

== ENCOUNTER 2023-12-07 08:30 | Outpatient (AMB) | payer OTHER, SELFPAY ==
[2023-12-07 08:37] VITALS: BP 155/92; PULSE 83; RESP 13; O2SAT 97; BMI 30.4
--- NOTE | 2023-12-07 08:37 | A.OFFVIS_ITS ---
Intake Vital Signs 12/07/23 08:37 Height 6 ft Weight 224 lb BMI 30.4 BP 155/92 H Blood Pressure Location Lt brachial Position Sitting Respiration 13 Pulse 83 Pulse Source Pulse Oximeter Pulse Oximetry (%) 97 Oxygen Delivery Method Room Air Intake Visit Reasons: 2 WEEK FOLLOW UP Allergies No Known Allergies Allergy (Mild, Verified 12/07/23 08:38) NKA Medication List - Last Reconciled 12/07/23 by Lilia Bowser LPN acetaminophen 650 mg (2 x 325 mg) PO Q6H PRN 30 days amoxicillin 2,000 mg (4 x 500 mg) PO ONCE aspirin 325 mg PO Q12H 42 days celecoxib 200 mg PO BID 30 days gabapentin 300 mg PO BEDTIME lisinopril 40 mg PO DAILY metoprolol succinate ER 75 mg (1.5 x 50 mg) PO DAILY simvastatin 20 mg PO DAILY HPI 2 WEEK FOLLOW UP HPI Details 83-year-old male who presents today to t he office for a two week follow up. He did not find significant relief from the gabapentin taken 300 mg at bedtime but would like to finish the supply that he has. He is interested in exploring other options. [facility] Medical History Preoperative clearance Annual physical exam Anxiety and depression Tubular adenoma of colon Urinary frequency Arthritis of right knee Blind left eye Bilateral shoulder pain Low back pain Rotator cuff rupture COVID-19 virus infection Obesity (BMI 30-39.9) Vitamin D deficiency Impaired glucose tolerance Hypercholesterolemia Hypertension Dislocation of shoulder, left, closed Erectile dysfunction Surgical History Hx of cataract extraction Hx of colonoscopy H/O prostatectomy H/O left knee surgery History of rhinoplasty History of tonsillectomy S/P rotator cuff repair Family History Father Acute leukemia Mother No problems noted. Social History Household Members: None Housing: Apartment Are you a primary health care sanitary technician to a significant other at home: No Do you presently have visiting nurse or other home services: No Alcohol intake: former Patient Tobacco Use Status: Never used Tobacco e-Cigarette/Vaping Use: Never Used Second Hand Smoke Exposure: No Advance Directives Date on File: 06/01/20 service: No Current occupational status: retired Cognitive needs: No Hearing needs: No Vision needs: No Review of Systems Const All systems reviewed & are unremarkable except as noted in HPI and below Physical Exam Vital Signs: Last Vital Signs Pulse 83 12/07/23 08:37 Resp 13 12/07/23 08:37 BP 155/92 H 12/07/23 08:37 Pulse Ox 97 12/07/23 08:37 Oxygen Delivery Method Room Air 12/07/23 08:37 BMI result Body Mass Index 30.4 General: Appears afebrile. Alert and oriented. Mood and affect appropriate. Follows and participates in conversation appropriately. Respiratory effort is unlabored. Able to transition from sit to stand unassisted. Ambulates with bilaterally normal heel strike and toe off. Right knee generalized swelling with limited range of motion. Results Reviewed Results Reviewed: No imaging is available for review. Assessment & Plan Assessment & Plan (1) Right knee pain: Code(s): M25.561 - Pain in right knee (2) Status post total right knee replacement: Comment: 05/25/2023 Dr. Gonzales Code(s): Z96.651 - Presence of right artificial knee joint Plan Discussed temporary nerve stimulation of the right saphenous nerve as a potential treatment modality for his right knee post surgical pain. Informed him that it is unlikely to help with the stiffness but we can hopefully get a good handle on the pain. He is amenable to proceeding with the procedure. Discussed risks and benefits. We will schedule him for a right saphenous nerve temporary stimulator placement. Justification for interventional therapy: * Patient with average pain > 6/10 * Patient has exhausted multiple therapies including surgery, physical therapy and oral medications Scribed for Dr. Fritz by Adryan Olson, medical device assembler, on 12/07/2023. I, Dr. Fritz, have personally reviewed and agree with the information entered by the scribe. Coding Level of Care Code Est Pt Level 3 (46763) Diagnoses Right knee pain M25.561 Status post total right knee replacement Z96.651
== END 2023-12-07 08:55 | disposition home or self-care (01) ==
LOC: HO.PMC 08:30
PROVIDERS: PCP Internal Medicine; Visit Provider Internal Medicine
DX: M25.561 Pain in right knee (principal); Z96.651 Presence of right artificial knee joint
CPT/HCPCS: 99213

== ENCOUNTER 2023-12-28 08:48 | Outpatient (AMB) | payer OTHER, SELFPAY ==
[2023-12-28 09:22] VITALS: BP 186/96; PULSE 65; RESP 14; BMI 30.4
--- NOTE | 2023-12-28 09:22 | MHC.OFFVIS ---
Vital Signs 12/28/23 09:22 Height 6 ft Weight 224 lb BMI 30.4 BP 186/96 H Blood Pressure Location Lt brachial Position Sitting Respiration 14 Pulse 65 Pulse Source Pulse Oximeter Intake Visit Reasons: discussion with doctor Allergies No Known Allergies Allergy (Mild, Verified 12/28/23 09:25) NKA Medication List - Last Reconciled 12/28/23 by Lilia Bowser LPN acetaminophen 650 mg (2 x 325 mg) PO Q6H PRN 30 days amoxicillin 2,000 mg (4 x 500 mg) PO ONCE aspirin 325 mg PO Q12H 42 days celecoxib 200 mg PO BID 30 days gabapentin 300 mg PO BEDTIME lisinopril 40 mg PO DAILY metoprolol succinate ER 75 mg (1.5 x 50 mg) PO DAILY simvastatin 20 mg PO DAILY HPI HPI discussion with doctor: Details: 83-year-old male who presents today to the office with questions regarding his upcoming sprint PNS trial. He is scheduled for temporary nerve stimulation of the right saphenous nerve. He has concerns about the procedure and wanted to clarify some details of the procedure. He has difficulty walking or standing for prolonged periods of time. He has difficulty putting on weight during ambulation and doing his ADLs. He is anxious and requested medication to take prior to the procedure. [facility] Medical History Preoperative clearance Annual physical exam Anxiety and depression Tubular adenoma of colon Urinary frequency Arthritis of right knee Blind left eye Bilateral shoulder pain Low back pain Rotator cuff rupture COVID-19 virus infection Obesity (BMI 30-39.9) Vitamin D deficiency Impaired glucose tolerance Hypercholesterolemia Hypertension Dislocation of shoulder, left, closed Erectile dysfunction Surgical History Hx of cataract extraction Hx of colonoscopy H/O prostatectomy H/O left knee surgery History of rhinoplasty History of tonsillectomy S/P rotator cuff repair Family History Father Acute leukemia Mother No problems noted. Social History Household Members: None Housing: Apartment Are you a primary healthcare network pricing consultant to a significant other at home: No Do you presently have visiting nurse or other home services: No Alcohol intake: former Patient Tobacco Use Status: Never used Tobacco e-Cigarette/Vaping Use: Never Used Second Hand Smoke Exposure: No Advance Directives Date on File: 06/01/20 service: No Current occupational status: retired Cognitive needs: No Hearing needs: No Vision needs: No Review of Systems Const All systems reviewed & are unremarkable except as noted in HPI and below Physical Exam Vital Signs: Last Vital Signs Pulse 65 12/28/23 09:22 Resp 14 12/28/23 09:22 BP 186/96 H 12/28/23 09:22 BMI result Body Mass Index 30.4 General: Appears afebrile. Alert and oriented. Mood and affect appropriate. Follows and participates in conversation appropriately. Respiratory effort is unlabored. Able to transition from sit to stand unassisted. Ambulates with bilaterally normal heel strike and toe off. Results Reviewed Results Reviewed: No imaging is available for review. Assessment & Plan Assessment & Plan (1) Right knee pain: Code(s): M25.561 - Pain in right knee Category: Medical Plan I answered his questions about the details of the procedure. The patient will follow up as scheduled for temporary nerve stimulation of the right saphenous nerve. He also requested some kind of anxiolytic prior to the procedure. So, I will prescribe him 1 milligram Ativan to be taken one hour before the procedure. He will pick it up out of his pharmacy tonight. Scribed for Dr. Fritz by Adryan Olson, medical housekeeper, on 12/28/2023. I, Dr. Fritz, have personally reviewed and agree with the information entered by the scribe. Medications: New lorazepam Take 1 hour prior to scheduled procedure time 1 mg PO ONCE PRN 1 tab 0RF anxiety Coding Level of Care Code Est Pt Level 3 (05737) Diagnoses Right knee pain M25.561
== END 2023-12-28 09:35 | disposition home or self-care (01) ==
LOC: HO.PMC 08:48
PROVIDERS: PCP Internal Medicine; Visit Provider Internal Medicine
DX: M25.561 Pain in right knee (principal)
CPT/HCPCS: 99213

== ENCOUNTER → 2023-12-28 08:48 | Outpatient (BNVA) | payer OTHER, SELFPAY | PROVIDERS: PCP Internal Medicine; Visit Provider Internal Medicine ==

== ENCOUNTER 2024-01-07 06:13 | Outpatient (REF) | payer OTHER, SELFPAY | END 2024-01-07 06:14 | disposition home or self-care (01) | LOC: CF 06:13 | PROVIDERS: Visit Provider Internal Medicine | DX: T84.84XA Pain due to internal orthopedic prosthetic devices, implants and grafts, initial encounter (principal); Z96.651 Presence of right artificial knee joint | CPT/HCPCS: 64555; C1778 ==

== ENCOUNTER 2024-01-07 07:25 | Outpatient (AMB) | payer OTHER, SELFPAY ==
--- NOTE | 2024-01-07 07:44 | A.OFFVIS_ITS ---
Vital Signs 01/07/24 09:04 01/07/24 09:05 Height 6 ft Weight 224 lb BMI 30.4 BP 158/90 H 160/92 H Blood Pressure Location Lt brachial Lt brachial Position Sitting Sitting Respiration 18 18 Pulse 62 66 Pulse Source Pulse Oximeter Pulse Oximeter Pulse Oximetry (%) 100 97 Oxygen Delivery Method Room Air Room Air Comment Pre-Op Post-Op Intake Visit Reasons: right saphenous nerve Sprint Allergies No Known Allergies Allergy (Mild, Verified 12/28/23 09:25) NKA HPI HPI right saphenous nerve Sprint: Details: Patient presents for scheduled procedure. Denies any recent cough, cold, infection, fever or other significant changes in medical history since last office visit. [facility] Medical History Preoperative clearance Annual physical exam Anxiety and depression Tubular adenoma of colon Urinary frequency Arthritis of right knee Blind left eye Bilateral shoulder pain Low back pain Rotator cuff rupture COVID-19 virus infection Obesity (BMI 30-39.9) Vitamin D deficiency Impaired glucose tolerance Hypercholesterolemia Hypertension Dislocation of shoulder, left, closed Erectile dysfunction Surgical History Hx of cataract extraction Hx of colonoscopy H/O prostatectomy H/O left knee surgery History of rhinoplasty History of tonsillectomy S/P rotator cuff repair Family History Father Acute leukemia Mother No problems noted. Social History Household Members: None Housing: Apartment Are you a primary care navigator to a significant other at home: No Do you presently have visiting nurse or other home services: No Alcohol intake: former Patient Tobacco Use Status: Never used Tobacco e-Cigarette/Vaping Use: Never Used Second Hand Smoke Exposure: No Advance Directives Date on File: 06/01/20 service: No Current occupational status: retired Cognitive needs: No Hearing needs: No Vision needs: No Physical Exam Vital Signs: Last Vital Signs Pulse 66 01/07/24 09:05 Resp 18 01/07/24 09:05 BP 160/92 H 01/07/24 09:05 Pulse Ox 97 01/07/24 09:05 Oxygen Delivery Method Room Air 01/07/24 09:05 BMI result Body Mass Index 30.4 Office Procedures Details: Peripheral Nerve Stimulation Temporary Lead Placement, Ultrasound-Guided, Saphenous Nerve, RIGHT ? After the risks, benefits and alternatives were discussed with the patient and informed consent was obtained, patient was placed in the supine position and padded to foster comfort. Appropriate skin and bony landmarks were identified, and pertinent vascular structures were located. The skin overlying the needle entry site was prepped and draped in sterile fashion. Ultrasound was used to identify the femoral artery, the femoral vein and the saphenous nerve. After identifying and marking the intended target along the course of the Saphenous nerve, the skin around the planned entry point and the subcutaneous tissues were injected with local anesthetic. An introducer needle and stimulating probe were assembled, inserted and advanced along the intended course of the saphenous nerve, taking care to maintain the proper depth of insertion as the introducer was advanced under ultrasound guidance. The introducer needle was delivered to a location in proximity to the nerve taking care not to puncture the femoral artery or the vein. Multiple stimulation parameters were used to deliver stimulation to the saphenous nerve in concert with stimulating at multiple positions around the nerve. Nerve target acquisition was confirmed noting generation of sensory and mild motor effects (paresthesia, muscle tension, etc) in the medial knee, leg and ankle; corresponding to the distribution of the saphenous nerve. Various electrical parameter combinations were tested, and the lead location was adjusted (physically relocated under ultrasound guidance) until the patient indicated medial knee paresthesia and tension overlapping the distribution of the patient?s typical region of pain. The stimulating probe was removed from the introducer and a percutaneous lead was guided through the needle and delivered to a location in similar proximity to the nerve. Final location was verified with electrical stimulation and documented. The introducer needle was removed, and the exposed end of the percutaneous lead was attached to an external stimulator unit. Various electrical parameter combinations were again tested until the patient indicated paresthesia and muscle tension overlapping the distribution of the patient?s typical region of pain. After confirming that lead impedance was in the normal range, the external unit was detached, the needle was removed, and the lead was anchored at the skin. The lead was threaded into the connector block and electrical continuity and desired patient response was confirmed. The connector block was attached to the external stimulator unit. The site was covered with a sterile occlusive dressing. A final ultrasound image was taken to document final placement. The patient was observed for stability of vital signs and comfort. Sprint PNS Device: Sprint PNS Device [id number] Percutaneous Peripheral Neuroelectrode Procedure: 80969 - Percutaneous Peripheral Neuroelectrode Procedure code (CPT) selection complete Office Meds lidocaine (PF) 50 mg/5 mL (1 %) injection syringe Performing Provider: Zoraida Koch APRN, SANJAY Performing Location: [facility] Administered by: Lilia Bowser LPN on 01/07/24 08:41 Dose Route Admin Location Dispensed Lot Number Expiration Date NDC Utilization Review Nurse 5 mL subcut 5 mL Assessment & Plan Assessment & Plan (1) Right knee pain: Code(s): M25.561 - Pain in right knee Category: Medical (2) Status post total right knee replacement: Comment: 05/25/2023 Dr. Gonzales Code(s): Z96.651 - Presence of right artificial knee joint Category: Surgical Plan Patient is status post temporary right saphenous nerve stimulator placement. Patient tolerated procedure well and was discharged home in stable condition with discharge instructions. All questions were answered. We will follow-up via telephone or in clinic to assess response to therapy. A follow-up appointment was made during today's visit. Orders: Orders [place] guidance in treatment room Today M25.561 - Pain in right knee AMB Sprint PNS Today M25.561 - Pain in right knee Coding Level of Care Code Procedure Only Diagnoses Right knee pain M25.561 Status post total right knee replacement Z96.651 CPT Codes Sprint PNS - Sprint PNS Device: Sprint PNS Device ([id number]) Sprint PNS - SPRINT: 63131 - Percutaneous Peripheral Neuroelectrode ([id number]) Implantable Device Implantable Device Implantable Devices Qty Utilization Review Nurse Implant Date Expiration Date Analgesic PENS system 1 [employer] 01/07/24 01/11/24 CEMENT BONE SIMPLEX 2 05/25/23 06/30/25 INSERT TIBIAL #6 POSTERIOR 1 05/25/23 02/01/28 PATELLA 10MM TRIATH X3 1 05/25/23 12/08/27 PEG TRIATHLON DISTAL FIXATION 1 05/25/23 12/13/27 Uncoated knee femur prosthesis, metallic 1 [employer] [place] 05/25/23 07/28/27 Uncoated knee tibia prosthesis, metallic 1 [employer] [place] 05/25/23 12/30/27
[2024-01-07 09:04] VITALS: BP 158/90; PULSE 62; RESP 18; O2SAT 100; BMI 30.4
[2024-01-07 09:05] VITALS: BP 160/92; PULSE 66; RESP 18; O2SAT 97
== END 2024-01-07 09:00 | disposition home or self-care (01) ==
LOC: HO.PMCPRC 07:25
PROVIDERS: PCP Internal Medicine; Visit Provider Internal Medicine
DX: M25.561 Pain in right knee (principal); Z96.651 Presence of right artificial knee joint
CPT/HCPCS: 64555

== ENCOUNTER 2024-01-11 09:06 | Outpatient (AMB) | payer OTHER, SELFPAY ==
[2024-01-11 09:22] VITALS: BP 176/93; PULSE 69; RESP 14; O2SAT 96; BMI 30.5
--- NOTE | 2024-01-11 09:22 | A.OFFVIS_ITS ---
Vital Signs 01/11/24 09:22 Height 6 ft Weight 225 lb BMI 30.5 BP 176/93 H Blood Pressure Location Lt brachial Position Sitting Respiration 14 Pulse 69 Pulse Source Pulse Oximeter Pulse Oximetry (%) 96 Oxygen Delivery Method Room Air Intake Visit Reasons: s/p right saphenous Sprint Allergies No Known Allergies Allergy (Mild, Verified 01/11/24 09:27) NKA Medication List - Last Reconciled 01/11/24 by Lilia Bowser LPN acetaminophen 650 mg (2 x 325 mg) PO Q6H PRN 30 days amoxicillin 2,000 mg (4 x 500 mg) PO ONCE aspirin 325 mg PO Q12H 42 days celecoxib 200 mg PO BID 30 days gabapentin 300 mg PO BEDTIME lisinopril 40 mg PO DAILY lorazepam 1 mg PO ONCE PRN metoprolol succinate ER 75 mg (1.5 x 50 mg) PO DAILY simvastatin 20 mg PO DAILY HPI HPI s/p right saphenous Sprint: Details: 83-year-old male who presents today to the office for a status post right saphenous sprint. He has not noticed any significant relief from the device yet. He is able to walk a short distance. Her girlfriend helps him change the dressing at home. He tried to increase the device functionality to 70 yesterday night and tolerated it well but did not notice any appropriate paresthesia sensations. He has been doing home exercises. He is taking showers at home. Past procedures 01/07/24: Peripheral Nerve Stimulation Temporary Lead Placement, Ultrasound- Guided, Saphenous Nerve, RIGHT: No initial relief PFSH Medical History Preoperative clearance Annual physical exam Anxiety and depression Tubular adenoma of colon Urinary frequency Arthritis of right knee Blind left eye Bilateral shoulder pain Low back pain Rotator cuff rupture COVID-19 virus infection Obesity (BMI 30-39.9) Vitamin D deficiency Impaired glucose tolerance Hypercholesterolemia Hypertension Dislocation of shoulder, left, closed Erectile dysfunction Surgical History Hx of cataract extraction Hx of colonoscopy H/O prostatectomy H/O left knee surgery History of rhinoplasty History of tonsillectomy S/P rotator cuff repair Family History Father Acute leukemia Mother No problems noted. Social History Household Members: None Housing: Apartment Are you a primary career development specialist to a significant other at home: No Do you presently have visiting nurse or other home services: No Alcohol intake: former Patient Tobacco Use Status: Never used Tobacco e-Cigarette/Vaping Use: Never Used Second Hand Smoke Exposure: No Advance Directives Date on File: 06/01/20 service: No Current occupational status: retired Cognitive needs: No Hearing needs: No Vision needs: No Review of Systems Const All systems reviewed & are unremarkable except as noted in HPI and below Physical Exam Vital Signs: Last Vital Signs Pulse 69 01/11/24 09:22 Resp 14 01/11/24 09:22 BP 176/93 H 01/11/24 09:22 Pulse Ox 96 01/11/24 09:22 Oxygen Delivery Method Room Air 01/11/24 09:22 BMI result Body Mass Index 30.5 General: Appears afebrile. Alert and oriented. Mood and affect appropriate. Follows and participates in conversation appropriately. Respiratory effort is unlabored. Able to transition from sit to stand unassisted. Ambulates with bilaterally normal heel strike and toe off. Lead insertion site is clean, dry and intact. Results Reviewed Results Reviewed: No imaging is available for review. Assessment & Plan Assessment & Plan (1) Right knee pain: Code(s): M25.561 - Pain in right knee Category: Medical (2) Status post total right knee replacement: Comment: 05/25/2023 Dr. Gonzales Code(s): Z96.651 - Presence of right artificial knee joint Category: Medical Plan The patient will continue using stimulation therapy for next seven weeks. The patient will follow up for removal of the sprint device. Can consider trial of infrapatellar nerve stimulation if the saphenous nerve at the level of the adductor canal is not helpful. Scribed for Dr. Fritz by Adryan Olson, emergency medical services coordinator, on 01/11/2024. I, Dr. Fritz, have personally reviewed and agree with the information entered by the scribe. Coding Level of Care Code Est Pt Level 3 (72528) Diagnoses Right knee pain M25.561 Status post total right knee replacement Z96.651
== END 2024-01-11 09:44 | disposition home or self-care (01) ==
PROVIDERS: PCP Internal Medicine; Visit Provider Internal Medicine
DX: M25.561 Pain in right knee (principal); Z96.651 Presence of right artificial knee joint
CPT/HCPCS: 99024

== ENCOUNTER → 2024-01-11 09:06 | Outpatient (BNVA) | payer OTHER, SELFPAY | PROVIDERS: PCP Internal Medicine; Visit Provider Internal Medicine ==

== ENCOUNTER 2024-02-05 08:15 | Outpatient (AMB) | payer OTHER, SELFPAY ==
--- NOTE | 2024-02-05 08:35 | A.OFFVIS_ITS ---
Vital Signs 02/05/24 08:36 Height 6 ft Weight 224 lb BMI 30.4 BP 188/88 H Blood Pressure Location Lt brachial Position Sitting Respiration 14 Pulse 68 Pulse Source Pulse Oximeter Pulse Oximetry (%) 98 Oxygen Delivery Method Room Air Intake Visit Reasons: SPRINT CHECK UP Allergies No Known Allergies Allergy (Mild, Verified 02/05/24 08:38) NKA Medication List - Last Reconciled 02/05/24 by Lilia Bowser LPN acetaminophen 650 mg (2 x 325 mg) PO Q6H PRN 30 days amoxicillin 2,000 mg (4 x 500 mg) PO ONCE aspirin 325 mg PO Q12H 42 days celecoxib 200 mg PO BID 30 days gabapentin 300 mg PO BEDTIME lisinopril 40 mg PO DAILY lorazepam 1 mg PO ONCE PRN metoprolol succinate ER 75 mg (1.5 x 50 mg) PO DAILY simvastatin 20 mg PO DAILY HPI HPI SPRINT CHECK UP: Details: 83-year-old male who presents today to the office for a sprint checkup. He has no relief from this sprint device so far so he wanted the device was removed. He is interested in discussing other options. He was exposed to peroxide while refinishing his floor. He has been depressed for past six months. Past procedures 01/07/24: Peripheral Nerve Stimulation Temporary Lead Placement, Ultrasound- Guided, Saphenous Nerve, RIGHT: No initial relief PFSH Medical History Preoperative clearance Annual physical exam Anxiety and depression Tubular adenoma of colon Urinary frequency Arthritis of right knee Blind left eye Bilateral shoulder pain Low back pain Rotator cuff rupture COVID-19 virus infection Obesity (BMI 30-39.9) Vitamin D deficiency Impaired glucose tolerance Hypercholesterolemia Hypertension Dislocation of shoulder, left, closed Erectile dysfunction Surgical History Hx of cataract extraction Hx of colonoscopy H/O prostatectomy H/O left knee surgery History of rhinoplasty History of tonsillectomy S/P rotator cuff repair Family History Father Acute leukemia Mother No problems noted. Social History Household Members: None Housing: Apartment Are you a primary nurse behavioral health care to a significant other at home: No Do you presently have visiting nurse or other home services: No Alcohol intake: former Patient Tobacco Use Status: Never used Tobacco e-Cigarette/Vaping Use: Never Used Second Hand Smoke Exposure: No Advance Directives Date on File: 06/01/20 service: No Current occupational status: retired Cognitive needs: No Hearing needs: No Vision needs: No Review of Systems Const All systems reviewed & are unremarkable except as noted in HPI and below Physical Exam Vital Signs: Last Vital Signs Pulse 68 02/05/24 08:36 Resp 14 02/05/24 08:36 BP 188/88 H 02/05/24 08:36 Pulse Ox 98 02/05/24 08:36 Oxygen Delivery Method Room Air 02/05/24 08:36 BMI result Body Mass Index 30.4 General: Appears afebrile. Alert and oriented. Mood and affect appropriate. Follows and participates in conversation appropriately. Respiratory effort is unlabored. Able to transition from sit to stand unassisted. Ambulates with bilaterally normal heel strike and toe off. Lead removed with tip intact. Results Reviewed Results Reviewed: No imaging is available for review. Assessment & Plan Assessment & Plan (1) Right knee pain: Code(s): M25.561 - Pain in right knee Category: Medical Plan I had a discussion with him about trial of permanent nerve stimulator, the [employer] device at the?infrapatellar level. I provided them with a brochure. The patient will think about it and let us know if you would like to proceed. Once he lets us know, we will place the referral for psychology clearance. Patient is in agreement with the plan. Scribed for Dr. Fritz by Adryan Olson medical management trainer, on 02/05/2024. I, Dr. Fritz, have personally reviewed and agree with the information entered by the scribe. Coding Level of Care Code Est Pt Level 3 (01137) Diagnoses Right knee pain M25.561
[2024-02-05 08:36] VITALS: BP 188/88; PULSE 68; RESP 14; O2SAT 98; BMI 30.4
== END 2024-02-05 08:56 | disposition home or self-care (01) ==
PROVIDERS: PCP Internal Medicine; Visit Provider Internal Medicine
DX: M25.561 Pain in right knee (principal)
CPT/HCPCS: 99213

== ENCOUNTER → 2024-02-05 08:15 | Outpatient (BNVA) | payer OTHER, SELFPAY | PROVIDERS: PCP Internal Medicine; Visit Provider Internal Medicine ==

== ENCOUNTER 2024-04-14 08:36 | Outpatient (AMB) | payer OTHER, SELFPAY ==
[2024-04-14 08:36] VITALS: BMI 30.4
--- NOTE | 2024-04-14 08:36 | A.OFFVIS_ITS ---
Vital Signs 04/14/24 08:36 Height 6 ft Weight 224 lb BMI 30.4 Intake Visit Reasons: New prob - Right hip/down his leg Intake Note: Saulo is an 83 year old male who presents today for a new problem visit with complaints of right hip & knee pain. History of Right TKA 05/25/[address] Gonzales. Patient has recently seen Dr. Fritz, had a Spring Device trialed on 01/07/24 and is anticipating permanent stimulator. Allergies No Known Allergies Allergy (Mild, Verified 02/05/24 08:38) NKA HPI HPI New prob - Right hip/down his leg: Details: Saulo is an 83 year old male who presents today for a new problem visit with complaints of right hip & knee pain. History of Right TKA 05/25/[address] Gonzales. Patient has recently seen Dr. Fritz, had a Spring Device trialed on 01/07/24 and is anticipating permanent stimulator. He describes having some discomfort and pain in his lateral right knee and up his thigh into his greater trochanteric region. He also describes hearing noise with range of motion and walking coming from his knee. He states pain is mild and he denies fevers and chills. FORMERLY [facility] Medical History Preoperative clearance Annual physical exam Anxiety and depression Tubular adenoma of colon Urinary frequency Arthritis of right knee Blind left eye Bilateral shoulder pain Low back pain Rotator cuff rupture COVID-19 virus infection Obesity (BMI 30-39.9) Vitamin D deficiency Impaired glucose tolerance Hypercholesterolemia Hypertension Dislocation of shoulder, left, closed Erectile dysfunction Surgical History Hx of cataract extraction Hx of colonoscopy H/O prostatectomy H/O left knee surgery History of rhinoplasty History of tonsillectomy S/P rotator cuff repair Family History Father Acute leukemia Mother No problems noted. Social History Household Members: None Housing: Apartment Are you a primary career development coordinator to a significant other at home: No Do you presently have visiting nurse or other home services: No Alcohol intake: former Patient Tobacco Use Status: Never used Tobacco e-Cigarette/Vaping Use: Never Used Second Hand Smoke Exposure: No Advance Directives Date on File: 06/01/20 service: No Current occupational status: retired Cognitive needs: No Hearing needs: No Vision needs: No Physical Exam Vital Signs: BMI result Body Mass Index 30.4 Extrem Other: Well-healed incision 0 to 125 degrees of motion Stable to varus valgus stress No effusion Walking comfortably Results Reviewed Results Reviewed: Right total knee arthroplasty in expected post operative position with no hardw are complications or evidence of loosening Assessment & Plan Assessment & Plan (1) Status post total right knee replacement: Comment: 05/25/2023 Dr. Gonzales Code(s): Z96.651 - Presence of right artificial knee joint Category: Surgical Plan: This is a very pleasant 83-year-old gentleman who is status post right knee replacement approximately 11 months ago. Overall he is doing well. He had some concerns about noise and discomfort but I reassured him that everything looks great and that he is actually doing well and that the noise is pretty common. I think this was helpful for him and I told him he can follow up in 3 months if he wants to discuss again or if he has any questions. Coding Level of Care Code Est Pt Level 3 (36439) Diagnoses Status post total right knee replacement Z96.651
== END 2024-04-14 08:54 | disposition home or self-care (01) ==
PROVIDERS: PCP Internal Medicine; Visit Provider Orthopaedic Surgery
DX: M25.551 Pain in right hip (principal); M25.561 Pain in right knee; Z96.651 Presence of right artificial knee joint
CPT/HCPCS: 99212

== ENCOUNTER → 2024-04-14 08:36 | Outpatient (BNVA) | payer OTHER, SELFPAY | PROVIDERS: PCP Internal Medicine; Visit Provider Orthopaedic Surgery ==

== ENCOUNTER 2024-06-01 08:57 | Emergency (ER) | payer OTHER, SELFPAY ==
--- NOTE | ~2024-06-01 | XR_ITS ---
EXAMINATION: XR CHEST CLINICAL INFORMATION: Aphasia, resolved COMPARISON: 01/08/2020 TECHNIQUE: 2 views of the chest were obtained. FINDINGS: No focal consolidation, pulmonary edema, or pleural effusion. Stable cardiomediastinal silhouette. XR/XR chest 2V IMPRESSION: No acute cardiopulmonary findings. Electronically signed by: Vignesh Black MD 06/01/2024 10:45 AM EDT
--- NOTE | ~2024-06-01 | CT_ITS ---
EXAMINATION: CTA head and neck with and without contrast CLINICAL INFORMATION: Speech difficulty COMPARISON: None available. TECHNIQUE: Test bolus sequences followed by intravenous administration of 70 mL of Omnipaque 350 contrast. Helical imaging was performed in the axial plane from the skull vertex to the thoracic inlet. Delayed postcontrast imaging of the head was also performed. The data was processed at the medical technologist chemistry workstation for generation of MIP sequences. Angled MIPs and volume rendered reformatted images were also generated at an offline 3D workstation. Stenoses are assessed in accordance with NASCET criteria unless otherwise indicated. This CT examination was performed using dose optimization techniques as appropriate, variously including the following: *Automated exposure control *Adjustment of mA and/or kV according to patient size (this includes techniques or standardized protocols for targeted exams where dose is matched to indication/reason for exam; i.e. extremities or head) *Use of iterative reconstruction technique DLP: 2270 mGy-cm FINDINGS: BRAIN: No acute intracranial hemorrhage or infarct. The fisher-white matter differentiation is preserved. Patchy hypodensity involving the periventricular and deep white matter compatible with small vessel ischemic changes. No midline shift or hydrocephalus. No acute extra-axial fluid collections. The osseous structures are unremarkable. Sequela of bilateral lens replacement. Otherwise, no acute orbital pathology. Mucous retention cyst in the right maxillary sinus. The remaining paranasal sinuses and mastoid air cells are clear. Atherosclerotic calcifications of the bilateral carotid siphons. CTA NECK: Three-vessel aortic arch. The innominate and bilateral subclavian arteries are patent. The origins and cervical segments of common carotid arteries as well as the common carotid artery bifurcations are patent bilaterally. The cervical segments of the internal carotid arteries are also patent bilaterally. The origins and cervical segments of the vertebral arteries are patent bilaterally. No hemodynamically significant stenosis, dissection, or aneurysm. The visualized branches of the external carotid arteries are unremarkable. CTA HEAD: Mild atherosclerotic calcifications of the bilateral carotid siphons. Anterior circulation: The petrous, cavernous, and supraclinoid segments of the internal carotid arteries are patent bilaterally. The major branches of the anterior and middle cerebral arteries as well as anterior communicating artery complex are patent. No large vessel occlusion, saccular aneurysm, or dissection. Posterior circulation: The intracranial vertebral arteries are patent bilaterally. The basilar artery is mildly tortuous in course however normal in caliber. The posterior cerebral and superior cerebellar arteries arise normally from the basilar summit. Right posterior cerebral artery. No aneurysm. On delayed imaging, the venous structures demonstrate normal contrast opacification. No filling defect. No abnormal intraparenchymal enhancement. Soft tissues: There is a 2.2 cm hypoattenuating nodule in the left thyroid gland. Irregular nodular soft tissue density at the base of the tongue, partially opacifying the vallecula bilaterally. No suspicious cervical adenopathy. Lungs: Clear. Bones: No acute osseous abnormality. No lytic or blastic osseous lesions. Multilevel degenerative changes of the visualized spine. CT/CT angio head neck IMPRESSION: -No acute intracranial hemorrhage or edematous territorial infarction. -No large vessel occlusion or flow-limiting stenosis within the intracranial or extracranial arterial vasculature. -2.2 cm hypoattenuating nodule in the left thyroid gland. Based on the recommendations of the ACR Incidental Thyroid Findings Committee (JACR 2014; 12(2):143-50), further evaluation by thyroid ultrasound is recommended for solitary incidental thyroid nodules greater than or equal to 1.5 cm in largest axial dimension in patients age 35 years and older who do not have limited life expectancy or significant morbidities, unless clinically warranted. -Irregular nodular soft tissue density at the base of the tongue partially opacifying the vallecula bilaterally. Recommend correlation with direct visualization. Electronically signed by: Zacarias Benitez MD 06/01/2024 01:34 PM EDT RP
[2024-06-01 08:58] VITALS: BP 167/79; PULSE 74; RESP 16; TEMP 36; O2SAT 94; BMI 30.3
--- NOTE | 2024-06-01 09:18 | ED.GENADULT ---
HPI - General Adult General Chief complaint: General Medical Stated complaint: stroke symptoms 3 weeks ago Time Seen by Provider: 06/01/24 09:09 Source: patient Mode of arrival: ambulatory Limitations: no limitations History of Present Illness HPI narrative: 83-year-old male presents emergency department for multiple complaints. He states 2 weeks ago he was traveling to see his mother's grave. He states he was in [place] and while he was talking to a friend he had trouble speaking. He also felt some numbness on the right side of his face. He is unsure how long these symptoms lasted he states he was told by his friend to see a doctor he has held off until today. He has no symptoms since that episode he lives alone he denies cough fever chest pain nausea vomiting or diarrhea. He has no symptoms at this time he does have a primary care doctor but does not have an appointment until next month he has not called to talk to his doctor about this episode. He denies any histories of seizures. Onset (ago): month(s) Related Data Previous Rx's ?Medication ?Instructions ?Recorded acetaminophen 325 mg tablet 650 mg (2 x 325 mg) PO Q6H PRN 05/27/23 Pain, Mild (Pain Scale 1-3) 30 days #240 tabs aspirin 325 mg tablet 325 mg PO Q12H 42 days #84 tabs 05/27/23 celecoxib 200 mg capsule 200 mg PO BID 30 days #60 caps 05/27/23 metoprolol succinate 50 mg 75 mg (1.5 x 50 mg) PO DAILY #90 09/14/23 tablet,extended release 24 hr tabs amoxicillin 500 mg capsule 2,000 mg (4 x 500 mg) PO ONCE #20 09/21/23 caps gabapentin 300 mg capsule 300 mg PO BEDTIME #30 caps 11/23/23 lisinopril 40 mg tablet 40 mg PO DAILY #90 tabs 12/16/23 lorazepam 1 mg tablet 1 mg PO ONCE PRN anxiety #1 tab 12/31/23 simvastatin 20 mg tablet 20 mg PO DAILY #90 tabs 03/14/24 Allergies Allergy/AdvReac Type Severity Reaction Status Date / Time No Known Allergies Allergy Mild NKA Verified 06/01/24 09:02 Review of Systems Review of Systems: Review of systems: General: Patient denies any fever chills recent illness or falls Musculoskeletal: Denies back pain or body aches or other injuries HEENT: denies headache, runny nose, ear pain Respiratory: denies shortness of breath, cough Cardiovascular: no chest pain or palpitations : denies dysuria, frequency Abdomen: no nausea vomiting denies abdominal pain Extremities: no swelling, no pain Skin: no diaphoresis Yes all other systems are reviewed and are negative [facility] Past Medical History Medical History Preoperative clearance Annual physical exam Anxiety and depression Tubular adenoma of colon Urinary frequency Arthritis of right knee Blind left eye Bilateral shoulder pain Low back pain Rotator cuff rupture COVID-19 virus infection Obesity (BMI 30-39.9) Vitamin D deficiency Impaired glucose tolerance Hypercholesterolemia Hypertension Dislocation of shoulder, left, closed Erectile dysfunction Surgical History Hx of cataract extraction Hx of colonoscopy H/O prostatectomy H/O left knee surgery History of rhinoplasty History of tonsillectomy S/P rotator cuff repair Family History Family History Father Acute leukemia Mother No problems noted. Social History Social History Household Members: None Housing: Apartment Are you a primary companion caregiver to a significant other at home: No Do you presently have visiting nurse or other home services: No Alcohol intake: former Patient Tobacco Use Status: Never used Tobacco Smoked in Last 30 Days: No e-Cigarette/Vaping Use: Never Used Second Hand Smoke Exposure: No Use of substances other than those prescribed or required for medical reasons: No Advance Directives: Yes Advance Directives on File: Yes Advance Directives Date on File: 06/01/20 Do you have a plan to hurt others: No Plan service: No Current occupational status: retired Cognitive needs: No Hearing needs: No Vision needs: No Physical Exam ED Vital Signs: Vital Signs - 24 hr 06/01/24 08:58 Temperature 96.8 F Pulse Rate 74 Respiratory Rate 16 Blood Pressure 167/79 H Pulse Oximetry 94 Oxygen Delivery Method Room Air BMI result Body Mass Index 30.3 Neurological exam: CN II- XII tested. Patient is alert and oriented to person place and time. Patient has no dysphagia or dysarthia, denies good vision in all four vision farrell no nystagmus on exam, good strength to upper and lower extremities with normal reflexes to brachioradialis, wrist, patella and achilles. Negative romberg, good finger to nose and heel to rhodes. General: Well-appearing well-nourished in no signs of distress HEENT: Normocephalic atraumatic Neck: No signs of JVD, no masses no tenderness or lymphadenopathy Cardiovascular: Regular rate and rhythm Respiratory: Clear to auscultation bilaterally Abdomen: Soft nontender no masses Extremities: Normal pedal pulses no signs of edema Skin: Dry warm no rashes Back: No tenderness full ROM NIH Stroke Scale Internal: Initial- Upon Arrival Level of Consciousness: Alert Level of Consciousness Questions: Answers both questions correctly Level of Consciousness Commands: Performs both tasks correctly Best Gaze: Normal Visual: No visual loss Facial Palsy: Normal Motor Arm (Right): No drift Motor Arm (Left): No drift Motor Leg (Right): No drift Motor Leg (Left): No drift Limb Ataxia: Absent Sensory: Normal Best Language: No aphasia Dysarthia: Normal Extinction and Inattention: No abnormality Score: 0 Course Course Course Narrative: Patient still with no symptoms was re-evaluated multiple times CTA of the head and neck are normal patient is updated on labs and CTA with no new symptoms I do feel the patient safe to go home follow up with his doctor CT did mention on his vallecula as well as thyroid nodule patient is educated on both these findings Medications Administered Discontinued Medications Generic Name Dose Route Start Last Admin Trade Name Freq PRN Reason Stop Dose Admin Aspirin 324 mg 06/01/24 09:23 06/01/24 09:33 Aspirin 81 Mg Tab.Chew PO 06/01/24 09:24 324 mg ONCE ONE Administration Iohexol 100 ml 06/01/24 11:43 06/01/24 11:44 Iohexol 350 Mg/Ml 100 Ml Infus..Btl IV 06/01/24 11:44 70 ml ONCE ONE Administration Medical Decision Making Medical Decision Making [facility] Narrative: I will send the patient for CT scan I will check labs and reassess Differential Diagnosis Differential Diagnoses: The differential diagnosis associated with the presentation includes TI weakness electrolyte abnormality dehydration diabetes medication effect dementia Admission/Observation Consideration of admission/observation: Escalation of care including admission/observation considered Consult Healthcare Provider Management of the patient was discussed with: Hospitalist Lab Data [facility] Lab Attestation statement: I reviewed the patient's lab results. 06/01/24 09:55 06/01/24 09:55 Labs: Lab Results 06/01/24 Range/Units 09:55 WBC 4.2 L (4.8-10.8) X10*3/uL RBC 4.60 (4.60-5.80) X10*6/uL Hgb 14.5 (14.0-18.0) g/dl Hct 42.6 (42.0-52.0) % MCV 92.6 (80.0-98.0) fL MCH 31.5 (27.0-33.0) pg MCHC 34.0 (31.0-36.0) g/dl RDW 12.6 (11.0-16.0) % Plt Count 190 (160-400) X10*3/uL MPV 8.8 L (9.4-12.4) fL Immature Gran % (Auto) 0.2 (0.0-0.4) % Neut % (Auto) 52.3 (45-73) % Lymph % (Auto) 30.7 (20-40) % [place] % (Auto) 13.9 H (2-11) % Eos % (Auto) 2.4 (0-4) % Baso % (Auto) 0.5 (0-2) % Lymph # (Auto) 1.3 (1.2-4.9) X10*3/uL [place] # (Auto) 0.6 (0.1-1.2) X10*3/uL Eos # (Auto) 0.1 (0.0-0.4) X10*3/uL Baso # (Auto) 0.0 (0.0-0.2) X10*3/uL Abs Immat Gran (auto) 0.01 (0.00-0.03) X10*3/uL Absolute Neuts (auto) 2.2 (2.0-8.3) x10*3/uL Absolute Nucleated RBC 0.000 (0.0-0.012) X10*3/uL Nucleated RBC % (auto) 0.0 (0.0-0.2) /100WBC Sodium 140 (135-145) mmol/L Potassium 4.9 (3.3-5.1) mmol/L Chloride 104 (96-108) mmol/L Carbon Dioxide 28 (22-29) mmol/L Anion Gap 13 (12-20) BUN 13 (9-16) mg/dL Creatinine 0.84 (0.5-1.4) mg/dL Estim Creat Clear Calc 85.0 Estimated GFR > 60 Random Glucose 99 (60-115) mg/dL Calcium 9.8 (8.4-10.2) mg/dL Total Bilirubin 0.6 (0.0-1.0) mg/dL Direct Bilirubin 0.2 (0.0-0.5) mg/dL AST 16 (5-37) U/L ALT 12 (0-40) U/L Alkaline Phosphatase 53 (39-117) U/L Total Protein 7.4 (6.5-8.0) g/dL Albumin 4.1 (3.5-5.0) g/dL Lipase 24 (8-78) U/L Independent Interpretation I performed an independent interpretation of an: EKG Interpretation: Rate 64 normal sinus rhythm normal intervals no signs of ischemia no previous for comparison Discharge Plan Discharge Clinical Impression: Difficulty with speech, Tongue mass, Thyroid nodule Patient Disposition: Home, Self-Care Instructions: Thyroid Nodules (ED) Additional Instructions: You were seen today in the emergency department for speech difficulty which resolved 2 weeks ago. You had a CT and labs done which were all unremarkable. CT did show an abnormal thyroid nodule as well as some type mass on the tongue. Both new follow up with your doctor if you have any other concerns please return to the emergency department. Prescriptions: No Action metoprolol succinate 50 mg tablet extended release 24 hr 75 mg PO DAILY Qty: 90 3RF Rx Instructions: 50 mg + 25 mg = 75 mg QD amoxicillin 500 mg capsule 2,000 mg PO ONCE Qty: 20 2RF Rx Instructions: Take four caps (2,000 mg) one hour before any dental work lisinopril 40 mg tablet 40 mg PO DAILY Qty: 90 2RF simvastatin 20 mg tablet 20 mg PO DAILY Qty: 90 0RF celecoxib 200 mg Capsule 200 mg PO BID 30 Days Qty: 60 0RF acetaminophen 325 mg Tablet 650 mg PO Q6H PRN (Reason: Pain, Mild (Pain Scale 1-3)) 30 Days Qty: 240 0RF aspirin 325 mg Tablet 325 mg PO Q12H 42 Days Qty: 84 0RF lorazepam 1 mg tablet 1 mg PO ONCE PRN (Reason: anxiety) Qty: 1 0RF Rx Instructions: Take 1 hour prior to scheduled procedure time gabapentin 300 mg capsule 300 mg PO BEDTIME Qty: 30 0RF Print Language: Algerian
--- NOTE | 2024-06-01 09:20 | ECG_ITS ---
Test Reason : WEAKNESS Blood Pressure : / mmHG Vent. Rate : 064 BPM Atrial Rate : 064 BPM P-R Int : 194 ms QRS Dur : 092 ms QT Int : 430 ms P-R-T Axes : 040 -28 006 degrees QTc Int : 443 ms Normal sinus rhythm Minimal voltage criteria for LVH, may be normal variant ( R in aVL ) Borderline ECG When compared with ECG of 18-MAY-2023 13:11, TX interval has decreased Referred By: Sj Borges Electronically Signed By:VIKAS RUIZ
[2024-06-01] MEDS: Aspirin 81 MG TAB.CHEW 324 MG PO (09:33)
--- NOTE | 2024-06-01 09:33 | PC.NURSE ---
patient presents through external triage ambulatory with steady gait to ED7, states a little over 2 weeks ago he was driving back from [place] and while in [place] with a friend his friend asked him a question and the patient could not respond and notice he had a left sided facial droop that resolved after a short amount of time. patient presents today with no symptoms, states he was talking to a friend and his friend told him he should be seen by a doctor. patient told his RN he has a follow up with his primary in july, but did not call for a sooner appointment. patient PERRLA, denies any neurologic symptoms, motor function and strength is equal in all four extremities. patient speaking in clear and complete sentences. denies any significan medical history, headaches, recent falls, blurred vision. no PIV needed at this time per MD kennedy.
[2024-06-01 10:01] LABS: MANUAL DIFF FLAG NO
[2024-06-01 10:13] LABS: Basophils Percent Auto 0.5 % (0-2); Eosinophils Absolute Auto 0.1 X10*3/uL (0.0-0.4); Eosinophils Percent Auto 2.4 % (0-4); Hematocrit 42.6 % (42.0-52.0); Hemoglobin 14.5 g/dl (14.0-18.0); Imm Gran Abs Auto 0.01 X10*3/uL (0.00-0.03); Imm Gran Pct Auto 0.2 % (0.0-0.4); Lymphocytes Absolute Auto 1.3 X10*3/uL (1.2-4.9); Lymphocytes Percent Auto 30.7 % (20-40); Mean Corpuscular Hemoglobin 31.5 pg (27.0-33.0); Mean Corpuscular Volume 92.6 fL (80.0-98.0); Mean Platelet Volume 8.8 fL (9.4-12.4); Monocytes Absolute Auto 0.6 X10*3/uL (0.1-1.2); Monocytes Percent Auto 13.9 % (2-11); Neutrophils Absolute Auto 2.2 x10*3/uL (2.0-8.3); Neutrophils Percent Auto 52.3 % (45-73); Platelet Count 190 X10*3/uL (160-400); Red Cell Distribution Width 12.6 % (11.0-16.0); White Blood Count 4.2 X10*3/uL (4.8-10.8)
[2024-06-01 10:28] LABS: Alanine Aminotransferase 12 U/L (0-40); Albumin Level 4.1 g/dL (3.5-5.0); Alkaline Phosphatase 53 U/L (39-117); Anion Gap 13 (12-20); Aspartate Amino Transferase 16 U/L (5-37); Bilirubin Direct 0.2 mg/dL (0.0-0.5); Bilirubin Total 0.6 mg/dL (0.0-1.0); Blood Urea Nitrogen 13 mg/dL (9-16); Calcium 9.8 mg/dL (8.4-10.2); Carbon Dioxide 28 mmol/L (22-29); Chloride 104 mmol/L (96-108); Estimated Glomerular Filt Rate > 60; Glucose Random 99 mg/dL (60-115); Lipase 24 U/L (8-78); Potassium 4.9 mmol/L (3.3-5.1); Sodium 140 mmol/L (135-145); Total Protein 7.4 g/dL (6.5-8.0)
[2024-06-01] MEDS: iohexoL 350 MG/ML 100 ML INFUS..BTL IV (11:44)
[2024-06-01 13:46] VITALS: BP 191/105; PULSE 60; RESP 16; TEMP 36.8; O2SAT 95
== END 2024-06-01 13:59 | disposition home or self-care (01) ==
PROVIDERS: Emergency Provider Student in an Organized Health Care Education/Training Program; PCP Internal Medicine
DX: R47.89 Other speech disturbances (principal); K14.9 Disease of tongue, unspecified; E04.1 Nontoxic single thyroid nodule; R29.700 NIHSS score 0
CPT/HCPCS: 36415; 70496; 70498; 71046; 80048; 80076; 83690; 85025; 93005; 99284; Q9967

== ENCOUNTER 2024-06-14 08:21 | Outpatient (AMB) | payer OTHER, SELFPAY ==
--- NOTE | 2024-06-14 08:27 | MHC.PC.OV ---
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: No Allergies No Known Allergies Allergy (Mild, Verified 06/14/24 08:32) NKA Medication List - Last Reconciled 06/14/24 by Altagracia Torres PA-C acetaminophen 650 mg (2 x 325 mg) PO Q6H PRN 30 days amoxicillin 2,000 mg (4 x 500 mg) PO ONCE aspirin 325 mg PO Q12H 42 days celecoxib 200 mg PO BID 30 days gabapentin 300 mg PO BEDTIME lisinopril 40 mg PO DAILY lorazepam 1 mg PO ONCE PRN metoprolol succinate ER 75 mg (1.5 x 50 mg) PO DAILY simvastatin 20 mg PO DAILY Tobacco use date assessed: 10/09/23 Fall risk assessment: No Falls in past year Last assessed Fall Risk: 06/14/24 Dental Screening Dental Screen Date: 10/09/23 HPI [facility] [place] 06/01 Thyroid Nodule HPI Details 83-year-old male with past medical history of hypertension, hypercholesterolemia, impaired glucose tolerance and 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 In review of the notes, patient was seen in [facility] [place] ED 06/01/2024 for 1 episode of dysarthria and right-sided facial numbness which resolved [address] and labs were unremarkable CT did show abnormal thyroid nodule and tongue mass advised to follow up with PCP. Patient follows with pain management last seen January 2024 advise permanent nerve stimulator and follow up as needed. CT showed 2.2 cm hypoattenuating nodule in the left thyroid gland recommend thyroid ultrasound for further evaluation. Patient states 3 weeks ago while on a road trip he had intermittent facial numbness that resolved spontaneously. He had 3 episodes within 2 days and has not had any recurrence since. He does not routinely measure his blood pressures at home denies any confusion, visual changes, weakness, or numbness. [facility] Medical History Preoperative clearance Annual physical exam Anxiety and depression Tubular adenoma of colon Urinary frequency Arthritis of right knee Blind left eye Bilateral shoulder pain Low back pain Rotator cuff rupture COVID-19 virus infection Obesity (BMI 30-39.9) Vitamin D deficiency Impaired glucose tolerance Hypercholesterolemia Hypertension Dislocation of shoulder, left, closed Erectile dysfunction Surgical History Hx of cataract extraction Hx of colonoscopy H/O prostatectomy H/O left knee surgery History of rhinoplasty History of tonsillectomy S/P rotator cuff repair Family History Father Acute leukemia Mother No problems noted. Social History Household Members: None Housing: Apartment Are you a primary animal care supervisor to a significant other at home: No Do you presently have visiting nurse or other home services: No Alcohol intake: former Patient Tobacco Use Status: Never used Tobacco e-Cigarette/Vaping Use: Never Used Second Hand Smoke Exposure: No Advance Directives Date on File: 06/01/20 service: No Current occupational status: retired Cognitive needs: No Hearing needs: No Vision needs: No Questionnaire Thrive Questionnaire Date Thrive assessed: 10/09/23 AUDIT C Alcohol Use Questionnaire (AUDIT-C) 1. How often do you have a drink containing alcohol?: Never 2. How many drinks containing alcohol do you have on a typical day when you are drinking?: 1 or 2 (0) 3. How often do you have six or more drinks on one occasion?: Never Total Score: 0 Score Reviewed/Action Taken: No JANE-7 AMB Questionnaire JANE-7 Date JANE - 7 assessed: 12/04/22 Source: Developed by Drs. Efraín Cunha, Jenna Loo, Owen Caceres and colleagues, with an educational annette from [employer]. Review of Systems Const Denies body aches, Denies chills, Denies fever(s) and Denies headache(s) Eyes Denies blurry vision, Denies change in vision and Reports requires corrective lenses ENT Denies dysphagia, Denies dizziness, Denies headache(s) and Denies odynophagia Card Denies chest pain, Denies lightheadedness and Denies dyspnea Resp Denies dyspnea GI Denies abdominal pain, Denies dysphagia, Denies nausea, Denies odynophagia and Denies vomiting Reports no additional complaints Musc Reports no additional complaints and Denies abnormal gait Skin/Breast Reports system reviewed and no additional complaints, except as documented Neuro Denies abnormal gait, Denies dizziness and Denies headache(s) Psych Reports no additional complaints Physical exam (Primary Care) Vital Signs: Last Vital Signs Pulse 64 06/14/24 08:28 BP 178/98 H 06/14/24 09:05 Pulse Ox 96 06/14/24 08:28 Oxygen Delivery Method Room Air 06/14/24 08:28 BMI result Body Mass Index 30.1 Tobacco/Smoking Status: Tobacco use Status Tobacco use date assessed 10/09/23 06/14/24 08:28 Patient Tobacco Use Status Never used Tobacco 06/14/24 08:28 Tobacco use type 12/09/23 10:17 e-Cigarette/Vaping Use Never Used 06/14/24 08:28 Thrive Assessment: Date of Thrive Assessment Date Thrive assessed 10/09/23 06/14/24 08:28 Const General: cooperative, healthy appearing, comfortable and no acute distress Orientation/consciousness: patient oriented x3 HENMT Head: Yes normocephalic Ears: hearing grossly normal bilaterally General nose exam: Normal external nose present Mouth: Normal oral and palatal mucosa present Throat: Yes posterior oropharynx normal Eyes General: appearance normal, both eyes and all related structures Conjunctivae: conjunctivae normal Neck Neck: Yes full ROM and Yes no lymphadenopathy Thyroid: Thyroid normal, no masses, no palpable nodules and nontender Resp Effort & Inspection: normal respiratory effort and able to speak in complete sentences Cardio Rate: regular rate Rhythm: regular rhythm Skin General skin exam: no rashes or lesions noted Neuro General: patient oriented x3 Gait exam (Neuro): Normal gait present Extrem General: Yes normal to inspection, Yes full ROM and No edema Psych Affect: normal affect Attitude: cooperative Insight: Good insight present (Psych) Judgement: Good judgement present (Psych) Coding Level of Care Code Est Pt Level 4 (28467) Diagnoses Hypercholesterolemia E78.00 Essential hypertension I10 Hypertension type: essential hypertension Obesity (BMI 30-39.9) E66.9 Impaired glucose tolerance R73.02 Thyroid nodule E04.1 Tongue mass K14.8 Assessment & Plan Assessment & Plan (1) Hypercholesterolemia: Code(s): E78.00 - Pure hypercholesterolemia, unspecified Category: Medical Plan: Avoid foods that are high in cholesterol such as red meat, fried foods, eggs and baked goods. Triglyceride goal of less than 150 and LDL goal of less than 100. Continue on simvastatin 20 (2) Hypertension: Code(s): I10 - Essential (primary) hypertension Category: Medical Qualifiers: Hypertension type: essential hypertension Qualified Code(s): I10 - Essential (primary) hypertension Plan: Blood pressure elevated on exam today 170/98 and 180/100 when retaken. Continue on current blood pressure medication with the addition of amlodipine 2.5 mg. Avoid salt intake and encourage healthy diet and regular exercise. Follow up at next visit (3) Obesity (BMI 30-39.9): Code(s): E66.9 - Obesity, unspecified Category: Medical Plan: Healthy diet and regular exercise is encouraged. (4) Impaired glucose tolerance: Code(s): R73.02 - Impaired glucose tolerance (oral) Category: Medical Plan: Decrease the amount of carbohydrates such as pasta, bread, rice, and potatoes and limit the amount of sweets. Although fruits are generally healthy they should be eaten in moderation as they are still high in sugar. Hemoglobin A1c goal of less than 7%. Not currently on medical management. (5) Thyroid nodule: Comment: CT 05/2024 2.2 cm hypoattenuating nodule in the left thyroid gland. Code(s): E04.1 - Nontoxic single thyroid nodule Category: Medical Plan: Thyroid ultrasound ordered no difficulty or painful swallowing. (6) Tongue mass: Comment: CT 05/2024 Irregular nodular soft tissue density at the base of the tongue partially opacifying the vallecula bilaterally Code(s): K14.8 - Other diseases of tongue Category: Medical Plan: Referral placed for ear nose and throat. Plan This note was constructed using voice recognition software. While every effort has been made to ensure accuracy and window treatment installer, still areas may have been included sometimes these areas may affect the content or meeting of the given symptoms. Total time spent caring for the patient today was 30 minutes. This includes time spent before the visit reviewing the chart, time spent during the visit, and time spent after the visit and documentation. Orders: Orders US thyroid Today E04.1 - Nontoxic single thyroid nodule Referrals Ear/Nose/Throat Referral K14.8 - Other diseases of tongue Medications: New amlodipine 2.5 mg PO DAILY 30 tabs 2RF
[2024-06-14 08:28] VITALS: PULSE 64; O2SAT 96; BMI 30.1
[2024-06-14 09:05] VITALS: BP 178/98
== END 2024-06-14 09:15 | disposition home or self-care (01) ==
PROVIDERS: PCP Internal Medicine
DX: E78.00 Pure hypercholesterolemia, unspecified (principal); I10 Essential (primary) hypertension; E66.811 Obesity, class 1; Z68.30 Body mass index [BMI] 30.0-30.9, adult; R73.02 Impaired glucose tolerance (oral); E04.1 Nontoxic single thyroid nodule; K14.8 Other diseases of tongue

== ENCOUNTER → 2024-06-14 08:21 | Outpatient (BNVA) | payer OTHER, SELFPAY | PROVIDERS: PCP Internal Medicine ==

== ENCOUNTER 2024-06-28 08:35 | Outpatient (REF) | payer OTHER, SELFPAY | END 2024-06-28 08:36 | disposition home or self-care (01) | LOC: HO.US 08:35 | PROVIDERS: PCP Internal Medicine | DX: E04.1 Nontoxic single thyroid nodule (principal) | CPT/HCPCS: 76536 ==

== ENCOUNTER 2024-07-04 13:49 | Outpatient (AMB) | payer OTHER, SELFPAY ==
--- NOTE | 2024-07-04 13:59 | MHC.PC.OV ---
Vital Signs 07/04/24 14:00 Height 6 ft Weight 221 lb BMI 30.0 BP 160/98 H Blood Pressure Location Lt brachial Position Sitting Pulse 92 Pulse Source Pulse Oximeter Pulse Oximetry (%) 97 Oxygen Delivery Method Room Air Intake Visit Reasons: PE Sail Cutter Required: No Accompanied by: Self / Same As Patient Allergies No Known Allergies Allergy (Mild, Verified 07/04/24 14:05) NKA Medication List - Last Reconciled 07/04/24 by Cody Boston MD acetaminophen 650 mg (2 x 325 mg) PO Q6H PRN 30 days amlodipine 2.5 mg PO DAILY lisinopril 40 mg PO DAILY metoprolol succinate ER 75 mg (1.5 x 50 mg) PO DAILY simvastatin 20 mg PO DAILY Tobacco use date assessed: 10/09/23 Fall risk assessment: No Falls in past year Last assessed Fall Risk: 07/04/24 Dental Screening Dental Screen Date: 10/09/23 HPI PE HPI Details 83-year-old obese male with hypertension hypercholesterolemia impaired glucose tolerance coming in for physical exam last seen in 06/14/2024 concern about a tongue mass and referred to ear nose and throat. Review of the notes ER visit June 01 had numbness on the right side of the face concern about a tongue mass and thyroid nodule. Patient is also complains of having right hip pain and was seen by orthopedics right hip and knee pain . with a history of right total knee arthroplasty. Orthopedics reassured. PAtient states had episode of aphasia this ocurred mid may but ER visit May,, CT scan. was raking leaves and had an abrasion R arm. PAtient admits to take indiscriminately meds and discussed about the importance of taking them. Patient sees eye doctor and getting injectionsNE retina consultants Arie Ding M.D., [facility], [facility] Medical History Preoperative clearance Annual physical exam Anxiety and depression Tubular adenoma of colon Urinary frequency Arthritis of right knee Blind left eye Bilateral shoulder pain Low back pain Rotator cuff rupture COVID-19 virus infection Obesity (BMI 30-39.9) Vitamin D deficiency Impaired glucose tolerance Hypercholesterolemia Hypertension Dislocation of shoulder, left, closed Erectile dysfunction Surgical History Hx of cataract extraction Hx of colonoscopy H/O prostatectomy H/O left knee surgery History of rhinoplasty History of tonsillectomy S/P rotator cuff repair Family History Father Acute leukemia Mother No problems noted. Social History Household Members: None Housing: Apartment Are you a primary patient care technician instructor to a significant other at home: No Do you presently have visiting nurse or other home services: No Alcohol intake: former Patient Tobacco Use Status: Never used Tobacco e-Cigarette/Vaping Use: Never Used Second Hand Smoke Exposure: No Advance Directives Date on File: 06/01/20 service: No Current occupational status: retired Cognitive needs: No Hearing needs: No Vision needs: No Questionnaire PHQ-9 Over the last 2 weeks, how often have you been bothered by any of the following problems? 1. Little interest or pleasure in doing things: not at all 2. Feeling down, depressed, or hopeless: not at all 3. Trouble falling or staying asleep, or sleeping too much: not at all 4. Feeling tired or having little energy: not at all 5. Poor appetite or overeating: not at all 6. Feeling bad about yourself - or that you are a failure or have let yourself or your family down: not at all 7. Trouble concentrating on things, such as reading the newspaper or watching television: not at all 8. Moving or speaking so slowly that other people could have noticed. Or the opposite - being so fidgety or restless that you have been moving around a lot more than usual: not at all 9. Thoughts that you would be better off or of hurting yourself in some way: not at all Total score: 0 Depression Screening Interpretation: Negative Depression Screening Done: Yes 34369 - PHQ-9 Billing: Yes Source: Developed by Drs. Efraín Cunha, Jenna Loo, Owen Caceres and colleagues, with an educational annette from [employer]. Thrive Questionnaire Date Thrive assessed: 07/04/24 I am a: Patient What is your living situation today?: I choose not to answer this question Within the past 12 months, did the food you bought not last and you didn't have the money to get more?: I choose not to answer this question Within the past 12 months, did you worry whether your food would run out before you got money to buy more?: I choose not to answer this question Do you have trouble paying for medicines?: I choose not to answer this question Do you have trouble getting transportation to medical appointments?: I choose not to answer this question Do you have trouble paying your heating and electricity bill?: I choose not to answer this question Do you have trouble taking care of your child, family member or friend?: I choose not to answer this question Do you have trouble with day-to-day activities such as bathing, preparing meals, shopping, managing finances, etc.?: I choose not to answer this question Are you currently unemployed and looking for a job?: I choose not to answer this question Are you interested in more education?: I choose not to answer this question Please select the resources that you would like help with: None Currently or been in a relationship where the following occur: I choose not to answer THRIVE Score: 0 AUDIT C Alcohol Use Questionnaire (AUDIT-C) 1. How often do you have a drink containing alcohol?: Never 3. How often do you have six or more drinks on one occasion?: Never Total Score: 0 JANE-7 AMB Questionnaire JANE-7 Date JANE - 7 assessed: 07/04/24 Feeling nervous, anxious, or on edge: 0 = Not at all Not being able to stop or control worryin = Not at all Worrying too much about different things: 0 = Not at all Trouble relaxin = Not at all Being so restless that it is hard to sit still: 0 = Not at all Becoming easily annoyed or irritable: 0 = Not at all Feeling afraid as if something awful might happen: 0 = Not at all Total JANE-7 score (0-4 normal; 5-9 mild; 10-14 moderate; 15-21 severe): 0 Source: Developed by Drs. Efraín Cunha, Jenna Loo, Owen Caceres and colleagues, with an educational annette from [employer] JANE-7 Assessment Billing JANE-7 Assessment Tool: JANE-7 Assessment 87607 Review of Systems Const Denies poor appetite and Denies weakness Eyes Denies no additional complaints ENT Reports Normal hearing present, Denies dizziness, Denies nasal congestion, Denies tinnitus and Denies sore throat Card Denies chest pain, Denies syncope, Denies rapid heart rate and Denies dyspnea Resp Denies cough and Denies dyspnea GI Denies change in stool character, Reports constipation, Denies diarrhea, Denies nausea and Denies vomiting Denies dysuria and Denies urinary frequency Neuro Reports Normal hearing present, Denies confusion, Denies dizziness, Denies syncope and Denies weakness Psych Denies confusion Physical exam (Primary Care) Vital Signs: Last Vital Signs Pulse 92 07/04/24 14:00 BP 160/98 H 07/04/24 14:00 Pulse Ox 97 07/04/24 14:00 Oxygen Delivery Method Room Air 07/04/24 14:00 BMI result Body Mass Index 30.0 Tobacco/Smoking Status: Tobacco use Status Tobacco use date assessed 10/09/23 07/04/24 14:01 Patient Tobacco Use Status Never used Tobacco 07/04/24 14:01 Tobacco use type 12/09/23 10:17 e-Cigarette/Vaping Use Never Used 07/04/24 14:01 PHQ-9: PHQ-9 Score PHQ-9: Total score 0 07/04/24 14:07 Depression Screening Interpretation: Negative Thrive Assessment: Date of Thrive Assessment Date Thrive assessed 07/04/24 07/04/24 14:01 Currently or been in a relationship where the following occur: I choose not to answer Const General: No confusion Orientation/consciousness: No confusion HENMT Head: Yes normocephalic Ears: external ears normal and TM's normal bilaterally Face and sinus: Yes normal facial exam Mouth: moist mucous membranes Throat: Yes tonsils normal Eyes Conjunctivae: conjunctivae normal Pupils: Equal, round and reactive pupils present and Pupil accommodation reflex normal Direct Ophthalmoscopy: normal light reflex Neck Neck: No lymphadenopathy Thyroid: Thyroid normal Chest Chest palpation & inspection: normal inspection of the chest Resp Effort & Inspection: normal respiratory effort and no audible wheezes Auscultation: clear to auscultation bilaterally, no crackles, no wheezes and lung sounds not diminished Cardio Rate: regular rate Rhythm: regular rhythm Peripheral pulses: radial pulses present and dorsalis pedis present GI Palpation (GI): no masses Auscultation: normal bowel sounds and normoactive bowel sounds Rectal Exam - Male: Yes deferred Skin General skin exam: no rashes or lesions noted Rashes: no rashes Neuro General: No confusion Cranial nerves: Yes Equal, round and reactive pupils present and Yes Normal hearing present Cognition (Neuro): normal cognition Gait exam (Neuro): Normal gait present Motor exam (neuro): 5/5 motor strength present throughout Deep tendon reflexes (DTR's): Right brachioradialis reflex intensity grade: 2+, Left brachioradialis reflex intensity grade: 2+, Right patellar reflex intensity grade: 2+ and Left patellar reflex intensity grade: 2+ Extrem General: No edema Coding Level of Care Code Est Pt Prev Care >65y(42004) Diagnoses Annual physical exam Z00.00 Essential hypertension I10 Hypertension type: essential hypertension Hypercholesterolemia E78.00 Impaired glucose tolerance R73.02 Obesity (BMI 30-39.9) E66.9 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 (2) Hypertension: Code(s): I10 - Essential (primary) hypertension Category: Medical Qualifiers: Hypertension type: essential hypertension Qualified Code(s): I10 - Essential (primary) hypertension Plan: Continue with blood pressure medication. Decrease salt intake and exercise takes amlodipine 2.5 mg once a day lisinopril 40 mg once a day and metoprolol 75 mg once a day (3) Hypercholesterolemia: Code(s): E78.00 - Pure hypercholesterolemia, unspecified Category: Medical Plan: Avoid fried foods, chicken skin, eggs, butter margarine, pastries and meat. Be it pork or beef they have a lot of cholesterol takes simvastatin 20 mg once a day October 2023 last blood work (4) Impaired glucose tolerance: Code(s): R73.02 - Impaired glucose tolerance (oral) Category: Medical Plan: Decrease the amount of carbohydrate intake, pasta, bread, rice and potatoes are all sugar and that is aside from all the sweet stuff, remember that fruits are good but they are Sweet also. (5) Obesity (BMI 30-39.9): Code(s): E66.9 - Obesity, unspecified Category: Medical Plan: Diet and exercise (6) Status post total right knee replacement: Comment: 05/25/2023 Dr. Gonzales Code(s): Z96.651 - Presence of right artificial knee joint Category: Surgical Plan: Patient follows up with ortho (7) Thyroid nodule: Comment: CT 05/2024 2.2 cm hypoattenuating nodule in the left thyroid gland. Code(s): E04.1 - Nontoxic single thyroid nodule Category: Medical Plan: Ultrasound requested results pending (8) Tongue mass: Comment: CT 05/2024 Irregular nodular soft tissue density at the base of the tongue partially opacifying the vallecula bilaterally Code(s): K14.8 - Other diseases of tongue Category: Medical Plan: ENT referral requested Orders: Orders Hemoglobin A1c Today R73.02 - Impaired glucose tolerance (oral) Lipid Panel Today E78.00 - Pure hypercholesterolemia, unspecified, R73.02 - Impaired glucose tolerance (oral) Free T4 (Free Thyroxine) Today R73.02 - Impaired glucose tolerance (oral) Vitamin B12 and Folate Today R73.02 - Impaired glucose tolerance (oral) Comprehensive Met. Panel Today R73.02 - Impaired glucose tolerance (oral) Complete Blood Count Auto Diff Today R73.02 - Impaired glucose tolerance (oral) Thyroid Stimulating Hormone Today R73.02 - Impaired glucose tolerance (oral) Medications: Refilled metoprolol succinate ER 50 mg + 25 mg = 75 mg QD 75 mg (1.5 x 50 mg) PO DAILY 90 tabs 3RF I10 - Essential (primary) hypertension amlodipine 2.5 mg PO DAILY 30 tabs 2RF lisinopril 40 mg PO DAILY 90 tabs 2RF
[2024-07-04 14:00] VITALS: BP 160/98; PULSE 92; O2SAT 97
== END 2024-07-04 14:52 | disposition home or self-care (01) ==
PROVIDERS: PCP Internal Medicine; Visit Provider Internal Medicine
DX: Z00.00 Encounter for general adult medical examination without abnormal findings (principal); I10 Essential (primary) hypertension; E66.9 Obesity, unspecified; Z68.30 Body mass index [BMI] 30.0-30.9, adult; E78.00 Pure hypercholesterolemia, unspecified; R73.02 Impaired glucose tolerance (oral); Z96.651 Presence of right artificial knee joint; E04.1 Nontoxic single thyroid nodule; K14.8 Other diseases of tongue

== ENCOUNTER → 2024-07-04 13:51 | Outpatient (BNVA) | payer OTHER, SELFPAY | PROVIDERS: PCP Internal Medicine; Visit Provider Internal Medicine | DX: Z00.00 Encounter for general adult medical examination without abnormal findings (principal); I10 Essential (primary) hypertension; E78.00 Pure hypercholesterolemia, unspecified; R73.02 Impaired glucose tolerance (oral); E66.9 Obesity, unspecified; E04.1 Nontoxic single thyroid nodule; K14.8 Other diseases of tongue; Z79.899 Other long term (current) drug therapy; Z96.651 Presence of right artificial knee joint | CPT/HCPCS: 96127 ==

== ENCOUNTER 2024-08-11 08:42 | Emergency (ER) | payer OTHER, SELFPAY ==
--- NOTE | ~2024-08-11 | XR_ITS ---
EXAMINATION: XR CHEST CLINICAL INFORMATION: HTN COMPARISON: X-ray dated June 01, 2024. TECHNIQUE: 2 views of the chest were obtained. FINDINGS: No consolidation, pleural effusion or pneumothorax. No hyperinflation. Cardiomediastinal silhouette demonstrates calcified plaque thoracic aorta. Multilevel spondylosis. Radiopaque material in the greater tuberosity left humerus. Status post partial resection, distal right clavicle at the acromioclavicular joint. XR/XR chest 2V IMPRESSION: No acute airspace disease. Atherosclerosis, aorta. Probable status post rotator cuff tendon tear repair Partial osteotomy, right clavicle... Electronically signed by: Merlin Adams MD 08/11/2024 11:15 AM NILES
[2024-08-11 09:33] VITALS: BP 207/93; PULSE 69; RESP 18; TEMP 36.6; O2SAT 98; BMI 30.3
--- NOTE | 2024-08-11 09:37 | ECG_ITS ---
Test Reason : HTN Blood Pressure : / mmHG Vent. Rate : 065 BPM Atrial Rate : 065 BPM P-R Int : 210 ms QRS Dur : 102 ms QT Int : 440 ms P-R-T Axes : 023 091 058 degrees QTc Int : 457 ms Sinus rhythm with 1st degree A-V block Rightward axis Borderline ECG When compared with ECG of 01-JUN-2024 09:27, QRS axis Shifted right T wave inversion no longer evident in Inferior leads Referred By: Renetta Navarro Electronically Signed By:TI HERNANDEZ MD
--- NOTE | 2024-08-11 09:38 | ED.GENADULT ---
HPI - General Adult General Chief complaint: General Medical Stated complaint: high bp Time Seen by Provider: 08/11/24 10:55 Source: patient Mode of arrival: ambulatory Limitations: no limitations History of Present Illness ED Provider: Dr. Borges HPI narrative: 84-year-old male presents emergency department with asymptomatic hypertension was noted to be hypertensive at office visit yesterday but did not want to come in due to the weather as it was very bad starting yesterday. Patient denies chest pain shortness breath nausea vomiting diarrhea he is on multiple medications for blood pressure and has not taken them. Related Data Previous Rx's ?Medication ?Instructions ?Recorded acetaminophen 325 mg tablet 650 mg (2 x 325 mg) PO Q6H PRN 05/27/23 Pain, Mild (Pain Scale 1-3) 30 days #240 tabs amlodipine 2.5 mg tablet 2.5 mg PO DAILY #30 tabs 07/04/24 lisinopril 40 mg tablet 40 mg PO DAILY #90 tabs 07/04/24 metoprolol succinate 50 mg 75 mg (1.5 x 50 mg) PO DAILY #90 07/04/24 tablet,extended release 24 hr tabs simvastatin 20 mg tablet 20 mg PO DAILY #90 tabs 07/16/24 Allergies Allergy/AdvReac Type Severity Reaction Status Date / Time No Known Allergies Allergy Mild NKA Verified 08/11/24 09:34 Review of Systems Review of Systems: Review of systems: General: Patient denies any fever chills recent illness or falls Musculoskeletal: Denies back pain or body aches or other injuries HEENT: denies headache, runny nose, ear pain Respiratory: denies shortness of breath, cough Cardiovascular: no chest pain or palpitations : denies dysuria, frequency Abdomen: no nausea vomiting denies abdominal pain Extremities: no swelling, no pain Skin: no diaphoresis Yes all other systems are reviewed and are negative PENDING SALE TO [facility] Past Medical History Medical History Preoperative clearance Annual physical exam Anxiety and depression Tubular adenoma of colon Urinary frequency Arthritis of right knee Blind left eye Bilateral shoulder pain Low back pain Rotator cuff rupture COVID-19 virus infection Obesity (BMI 30-39.9) Vitamin D deficiency Impaired glucose tolerance Hypercholesterolemia Hypertension Dislocation of shoulder, left, closed Erectile dysfunction Surgical History Hx of cataract extraction Hx of colonoscopy H/O prostatectomy H/O left knee surgery History of rhinoplasty History of tonsillectomy S/P rotator cuff repair Family History Family History Father Acute leukemia Mother No problems noted. Social History Social History Household Members: None Housing: Apartment Are you a primary medicare specialist to a significant other at home: No Do you presently have visiting nurse or other home services: No Alcohol intake: former Patient Tobacco Use Status: Never used Tobacco Smoked in Last 30 Days: No e-Cigarette/Vaping Use: Never Used Second Hand Smoke Exposure: No Use of substances other than those prescribed or required for medical reasons: No Advance Directives: Yes Advance Directives on File: Yes Advance Directives Date on File: 06/01/20 Do you have a plan to hurt others: No Plan service: No Current occupational status: retired Cognitive needs: No Hearing needs: No Vision needs: No Physical Exam ED Vital Signs: Vital Signs - 24 hr 08/11/24 09:33 08/11/24 10:37 08/11/24 11:24 Temperature 97.8 F 98 F Pulse Rate 69 64 64 Respiratory Rate 18 14 14 Blood Pressure 207/93 H 196/106 H 196/106 H Pulse Oximetry 98 96 96 Oxygen Delivery Method Room Air Room Air Room Air BMI result Body Mass Index 30.3 Neurological exam: CN II- XII tested. Patient is alert and oriented to person place and time. Patient has no dysphagia or dysarthia, denies good vision in all four vision farrell no nystagmus on exam, good strength to upper and lower extremities with normal reflexes to brachioradialis, wrist, patella and achilles. Negative romberg, good finger to nose and heel to rhodes. General: Well-appearing well-nourished in no signs of distress HEENT: Normocephalic atraumatic Neck: No signs of JVD, no masses no tenderness or lymphadenopathy Cardiovascular: Regular rate and rhythm Respiratory: Clear to auscultation bilaterally Abdomen: Soft nontender no masses Extremities: Normal pedal pulses no signs of edema Skin: Dry warm no rashes Back: No tenderness full ROM Course Course Course Narrative: This is a rapid medical exam performed by Renetta Navarro PA-C. The patient is a 84-year-old male with a history of poorly controlled hypertension, hyperlipidemia, obesity and mild cognitive impairment who presents with hypertension. Patient states he was seen by primary care yesterday, he was noted to be hypertensive. Patient admits he struggles with his blood pressure. Patient is compliant with his medications, he states his primary care is supposed to be adding on an additional medication, he was instructed to come to the emergency room for assessment. Denies chest pain, shortness of breath, headache, visual disturbance. On exam he is neurologically intact, and overall well-appearing. We will be screening basic labs, troponin, UA, EKG and chest x-ray assessing for end-organ damage. The patient is hemodynamically stable and can return to the waiting room pending his full medical assessment. Medical Decision Making Medical Decision Making [facility] Narrative: Patient looks well has asymptomatic hypertension I do not have reason to start him on a different medications already on 3 blood pressure medications he looks well has normal labs no signs of end-organ damage I will discharge the patient home Differential Diagnosis Differential Diagnoses: The differential diagnosis associated with the presentation includes Hypertension uncontrolled Admission/Observation Consideration of admission/observation: Escalation of care including admission/observation considered Consult Healthcare Provider Management of the patient was discussed with: Primary Care Provider Dr. Boston consulted via [employer] Lab Data [facility] Lab Attestation statement: I reviewed the patient's lab results. 08/11/24 09:51 08/11/24 09:51 Labs: Lab Results 08/11/24 Range/Units 09:51 WBC 4.3 L (4.8-10.8) X10*3/uL RBC 4.51 L (4.60-5.80) X10*6/uL Hgb 14.4 (14.0-18.0) g/dl Hct 41.0 L (42.0-52.0) % MCV 90.9 (80.0-98.0) fL MCH 31.9 (27.0-33.0) pg MCHC 35.1 (31.0-36.0) g/dl RDW 12.7 (11.0-16.0) % Plt Count 178 (160-400) X10*3/uL MPV 8.4 L (9.4-12.4) fL Immature Gran % (Auto) 0.2 (0.0-0.4) % Neut % (Auto) 53.5 (45-73) % Lymph % (Auto) 28.1 (20-40) % [place] % (Auto) 14.9 H (2-11) % Eos % (Auto) 2.8 (0-4) % Baso % (Auto) 0.5 (0-2) % Lymph # (Auto) 1.2 (1.2-4.9) X10*3/uL [place] # (Auto) 0.6 (0.1-1.2) X10*3/uL Eos # (Auto) 0.1 (0.0-0.4) X10*3/uL Baso # (Auto) 0.0 (0.0-0.2) X10*3/uL Abs Immat Gran (auto) 0.01 (0.00-0.03) X10*3/uL Absolute Neuts (auto) 2.3 (2.0-8.3) x10*3/uL Absolute Nucleated RBC 0.000 (0.0-0.012) X10*3/uL Nucleated RBC % (auto) 0.0 (0.0-0.2) /100WBC Sodium 142 (135-145) mmol/L Potassium 4.1 (3.3-5.1) mmol/L Chloride 104 (96-108) mmol/L Carbon Dioxide 31 H (22-29) mmol/L Anion Gap 11 L (12-20) BUN 8 L (9-16) mg/dL Creatinine 0.78 (0.5-1.4) mg/dL Estim Creat Clear Calc 89.8 Estimated GFR > 60 Random Glucose 96 (60-115) mg/dL Calcium 9.7 (8.4-10.2) mg/dL Magnesium 2.0 (1.6-2.6) mg/dL Total Bilirubin 0.5 (0.0-1.0) mg/dL AST 20 (5-37) U/L ALT 11 (0-40) U/L Alkaline Phosphatase 56 (39-117) U/L Troponin I High Sens 3.1 (<3.5-35.0) ng/L Total Protein 7.1 (6.5-8.0) g/dL Albumin 3.9 (3.5-5.0) g/dL Independent Interpretation I performed an independent interpretation of an: EKG and Plain X-Ray Interpretation: EKG rate 65 normal sinus rhythm normal intervals no change from previous interpreted by me no signs of ischemia Chest x-ray no acute intrathoracic process Radiology Impression Discussion of test interpretation with radiology: I have reviewed the radiologist's reading. Independent Historian Clinical information obtained from an independent historian. History obtained from or confirmed by: Spouse External Record Review External record reviewed: Inpatient record and Office record Chronic Conditions Patient?s care impacted by: Hypertension Discharge Plan Discharge Clinical Impression: Hypertension, Mild cognitive impairment Patient Disposition: Home, Self-Care Instructions: Heart Healthy Diet (DC), Hypertension (ED) Additional Instructions: You were seen today for high blood pressure you had x-ray and labs done which were all unremarkable please call follow up with your doctor if you have any other concerns please return to the ER. Prescriptions: No Action simvastatin 20 mg tablet 20 mg PO DAILY Qty: 90 0RF acetaminophen 325 mg Tablet 650 mg PO Q6H PRN (Reason: Pain, Mild (Pain Scale 1-3)) 30 Days Qty: 240 0RF amlodipine 2.5 mg tablet 2.5 mg PO DAILY Qty: 30 2RF lisinopril 40 mg tablet 40 mg PO DAILY Qty: 90 2RF metoprolol succinate 50 mg tablet extended release 24 hr 75 mg PO DAILY Qty: 90 3RF Rx Instructions: 50 mg + 25 mg = 75 mg QD Interventions: ED Discharge Assessment Last Done: 08/11/24 11:24 Discharge Date/Time: 08/11/24 11:26 Print Language: Yi
[2024-08-11 09:54] LABS: MANUAL DIFF FLAG NO
[2024-08-11 09:56] LABS: Basophils Percent Auto 0.5 % (0-2); Eosinophils Absolute Auto 0.1 X10*3/uL (0.0-0.4); Eosinophils Percent Auto 2.8 % (0-4); Hemoglobin 14.4 g/dl (14.0-18.0); Imm Gran Abs Auto 0.01 X10*3/uL (0.00-0.03); Imm Gran Pct Auto 0.2 % (0.0-0.4); Lymphocytes Absolute Auto 1.2 X10*3/uL (1.2-4.9); Lymphocytes Percent Auto 28.1 % (20-40); Mean Corpuscular HGB Conc 35.1 g/dl (31.0-36.0); Mean Corpuscular Hemoglobin 31.9 pg (27.0-33.0); Mean Corpuscular Volume 90.9 fL (80.0-98.0); Mean Platelet Volume 8.4 fL (9.4-12.4); Monocytes Absolute Auto 0.6 X10*3/uL (0.1-1.2); Monocytes Percent Auto 14.9 % (2-11); Neutrophils Absolute Auto 2.3 x10*3/uL (2.0-8.3); Neutrophils Percent Auto 53.5 % (45-73); Platelet Count 178 X10*3/uL (160-400); Red Blood Count 4.51 X10*6/uL (4.60-5.80); Red Cell Distribution Width 12.7 % (11.0-16.0); White Blood Count 4.3 X10*3/uL (4.8-10.8)
[2024-08-11 10:11] LABS: Alanine Aminotransferase 11 U/L (0-40); Albumin Level 3.9 g/dL (3.5-5.0); Alkaline Phosphatase 56 U/L (39-117); Anion Gap 11 (12-20); Aspartate Amino Transferase 20 U/L (5-37); Bilirubin Total 0.5 mg/dL (0.0-1.0); Blood Urea Nitrogen 8 mg/dL (9-16); Calcium 9.7 mg/dL (8.4-10.2); Carbon Dioxide 31 mmol/L (22-29); Chloride 104 mmol/L (96-108); Creatinine Clr Calc Pharmacy 89.8; Estimated Glomerular Filt Rate > 60; Glucose Random 96 mg/dL (60-115); Potassium 4.1 mmol/L (3.3-5.1); Sodium 142 mmol/L (135-145); Total Protein 7.1 g/dL (6.5-8.0)
[2024-08-11 10:16] LABS: Troponin-I High Sensitivity 3.1 ng/L (<3.5-35.0)
[2024-08-11 10:37] VITALS: BP 196/106; PULSE 64; RESP 14; O2SAT 96
--- NOTE | 2024-08-11 10:39 | PC.NURSE ---
Pt comes to ED today as he reports his visiting nurse noted an elevated BP last night. Pt denies any pain. A&Ox3 BP elevated, HR is WNL Skin is warm and dry Breaths and speech are even and unlabored. Facial symmetry present. Pt offers no complaints at this time. Awaiting xray results.
--- NOTE | 2024-08-11 11:02 | PC.NURSE ---
Phone call received from a Ayleen Rosen--Pts HCP and life long friend. Verbal permission obtained from Pt to speak with Ayleen re: Pts ED visit today. Ayleen expresses concern that Pt lives alone and is stubborn. States he was encouraged by his visiting nurse repeatedly to come to ED for an elevated BP and Pt was resistive. Ayleen advised that workup is in progress and no dispo at this time.
[2024-08-11 11:24] VITALS: BP 196/106; PULSE 64; RESP 14; TEMP 36.6; O2SAT 96
== END 2024-08-11 11:26 | disposition home or self-care (01) ==
PROVIDERS: Physician Assistant Medical; Emergency Provider Student in an Organized Health Care Education/Training Program; PCP Internal Medicine
DX: I10 Essential (primary) hypertension (principal); G31.84 Mild cognitive impairment of uncertain or unknown etiology; E78.00 Pure hypercholesterolemia, unspecified; Z79.02 Long term (current) use of antithrombotics/antiplatelets; Z79.899 Other long term (current) drug therapy
CPT/HCPCS: 36415; 71046; 80053; 83735; 84484; 85025; 93005; 99283; 99284

== ENCOUNTER → 2024-08-11 09:37 | Outpatient (BNV) | payer OTHER, SELFPAY | PROVIDERS: Emergency Provider Student in an Organized Health Care Education/Training Program; PCP Internal Medicine; Visit Provider Internal Medicine Cardiovascular Disease | DX: I44.0 Atrioventricular block, first degree (principal) | CPT/HCPCS: 93010 ==

== ENCOUNTER → 2024-08-11 09:37 | Outpatient (BNV) | payer OTHER, SELFPAY | PROVIDERS: Emergency Provider Student in an Organized Health Care Education/Training Program; PCP Internal Medicine; Visit Provider Radiology Diagnostic Radiology | DX: I10 Essential (primary) hypertension (principal) | CPT/HCPCS: 71046 ==

== ENCOUNTER 2024-08-16 13:17 | Outpatient (AMB) | payer OTHER, SELFPAY ==
--- NOTE | 2024-08-16 13:25 | A.OFFPC_ITS ---
Vital Signs 08/16/24 13:26 08/16/24 13:56 Height 6 ft Weight 225 lb 2 oz BMI 30.5 BP 130/80 150/88 H Blood Pressure Location Lt brachial Lt brachial Position Sitting Sitting Pulse 79 Pulse Source Pulse Oximeter Pulse Oximetry (%) 98 Oxygen Delivery Method Room Air Intake Visit Reasons: [facility] 08/11 High BP Intake Note: Patient is here for hospital discharge follow up. Patient was discharged from [facility] [place] on 08/11/24. Chief Counsel Required: No Trials Manager: Not Required per policy Accompanied by: Self / Same As Patient Allergies No Known Allergies Allergy (Mild, Verified 08/16/24 13:26) NKA Medication List - Last Reconciled 08/16/24 by Altagracia Torres PA-C acetaminophen 650 mg (2 x 325 mg) PO Q6H PRN 30 days amlodipine 2.5 mg PO DAILY lisinopril 40 mg PO DAILY metoprolol succinate ER 75 mg (1.5 x 50 mg) PO DAILY simvastatin 20 mg PO DAILY Tobacco use date assessed: 08/16/24 Fall risk assessment: No Falls in past year Last assessed Fall Risk: 08/16/24 Dental Screening Dental Screen Date: 10/09/23 HPI [facility] [place] 08/11 High BP HPI Details 84-year-old obese male with hypertension hypercholesterolemia impaired glucose tolerance last seen July 2024 coming in for hospital discharge follow up.? Patient was found to be hypertensive at an office visit workup was unremarkable advised to follow up with PCP. Patient states had his [facility] nurse come in for their yearly checkup was found to have elevated blood pressure 198 over 100 and still elevated when retaken. He went to the ER the following day was found to have elevated blood pressure advised to follow up with his PCP. Denies any chest pain, headache, vision changes, blood in the urine or shortness of breath. He has no acute concerns today. [facility] Medical History Preoperative clearance Annual physical exam Anxiety and depression Tubular adenoma of colon Urinary frequency Arthritis of right knee Blind left eye Bilateral shoulder pain Low back pain Rotator cuff rupture COVID-19 virus infection Obesity (BMI 30-39.9) Vitamin D deficiency Impaired glucose tolerance Hypercholesterolemia Hypertension Dislocation of shoulder, left, closed Erectile dysfunction Surgical History Hx of cataract extraction Hx of colonoscopy H/O prostatectomy H/O left knee surgery History of rhinoplasty History of tonsillectomy S/P rotator cuff repair Family History Father Acute leukemia Mother No problems noted. Social History Household Members: None Housing: Apartment Are you a primary child care center administrator to a significant other at home: No Do you presently have visiting nurse or other home services: No Alcohol intake: former Patient Tobacco Use Status: Never used Tobacco e-Cigarette/Vaping Use: Never Used Second Hand Smoke Exposure: No Advance Directives Date on File: 06/01/20 service: No Current occupational status: retired Cognitive needs: No Hearing needs: No Vision needs: No Questionnaire Thrive Questionnaire Date Thrive assessed: 07/04/24 I am a: Patient What is your living situation today?: I choose not to answer this question Within the past 12 months, did the food you bought not last and you didn't have the money to get more?: I choose not to answer this question Within the past 12 months, did you worry whether your food would run out before you got money to buy more?: I choose not to answer this question Do you have trouble paying for medicines?: I choose not to answer this question Do you have trouble getting transportation to medical appointments?: I choose not to answer this question Do you have trouble paying your heating and electricity bill?: I choose not to answer this question Do you have trouble taking care of your child, family member or friend?: I choose not to answer this question Do you have trouble with day-to-day activities such as bathing, preparing meals, shopping, managing finances, etc.?: I choose not to answer this question Are you currently unemployed and looking for a job?: I choose not to answer this question Are you interested in more education?: I choose not to answer this question Please select the resources that you would like help with: None Currently or been in a relationship where the following occur: I choose not to answer THRIVE Score: 0 JANE-7 AMB Questionnaire JANE-7 Date JANE - 7 assessed: 07/04/24 Source: Developed by Hitesh Iveyet B.W. Eze, Owen Caceres and colleagues, with an educational annette from [employer]. Review of Systems Const Denies body aches, Denies chills, Denies fever(s), Denies headache(s) and Denies poor appetite Eyes Reports no additional complaints ENT Denies dizziness and Denies headache(s) Card Denies chest pain, Denies syncope, Denies edema, Denies irregular heart rhythm, Denies lightheadedness and Denies dyspnea Resp Denies cough and Denies dyspnea GI Reports no additional complaints Reports no additional complaints Musc Reports no additional complaints and Denies abnormal gait Skin/Breast Reports system reviewed and no additional complaints, except as documented Neuro Denies abnormal gait, Denies dizziness, Denies syncope and Denies headache(s) Psych Reports no additional complaints Physical exam (Primary Care) Vital Signs: Last Vital Signs Pulse 79 08/16/24 13:26 BP 150/88 H 08/16/24 13:56 Pulse Ox 98 08/16/24 13:26 Oxygen Delivery Method Room Air 08/16/24 13:26 BMI result Body Mass Index 30.5 Tobacco/Smoking Status: Tobacco use Status Tobacco use date assessed 08/16/24 08/16/24 13:30 Patient Tobacco Use Status Never used Tobacco 08/16/24 13:30 Tobacco use type 12/09/23 10:17 e-Cigarette/Vaping Use Never Used 08/16/24 13:30 Thrive Assessment: Date of Thrive Assessment Date Thrive assessed 07/04/24 08/16/24 13:30 Currently or been in a relationship where the following occur: I choose not to answer Const General: cooperative, healthy appearing, comfortable and no acute distress Orientation/consciousness: patient oriented x3 [facility] Head: Yes normocephalic Ears: hearing grossly normal bilaterally General nose exam: Normal external nose present Eyes General: appearance normal, both eyes and all related structures Conjunctivae: conjunctivae normal Neck Neck: Yes full ROM and Yes no lymphadenopathy Resp Effort & Inspection: normal respiratory effort Auscultation: clear to auscultation bilaterally, no crackles, no rales, no rhonchi and no wheezes Cardio Rate: regular rate Rhythm: regular rhythm Skin General skin exam: no rashes or lesions noted Neuro General: patient oriented x3 Gait exam (Neuro): Normal gait present Extrem General: Yes normal to inspection, Yes full ROM and No edema Psych Affect: normal affect Attitude: cooperative Insight: Good insight present (Psych) Judgement: Good judgement present (Psych) Coding Level of Care Code Est Pt Level 4 (97646) Diagnoses Obesity (BMI 30-39.9) E66.9 Hypercholesterolemia E78.00 Essential hypertension I10 Hypertension type: essential hypertension Impaired glucose tolerance R73.02 Assessment & Plan Assessment & Plan (1) Obesity (BMI 30-39.9): Code(s): E66.9 - Obesity, unspecified Category: Medical Plan: Healthy diet and regular exercise is encouraged. (2) Hypercholesterolemia: Code(s): E78.00 - Pure hypercholesterolemia, unspecified Category: Medical Plan: Avoid foods that are high in cholesterol such as red meat, fried foods, eggs and baked goods. Triglyceride goal of less than 150 and LDL goal of less than 100. Continue on simvastatin. Patient have blood work before next appointment (3) Hypertension: Code(s): I10 - Essential (primary) hypertension Category: Medical Qualifiers: Hypertension type: essential hypertension Qualified Code(s): I10 - Essential (primary) hypertension Plan: Blood pressure elevated on exam today 150/88 we will increase amlodipine to 5 mg. Continue to monitor blood pressure at home and follow up with Dr. Boston in October. Avoid salt intake and encourage healthy diet and regular exercise. (4) Impaired glucose tolerance: Code(s): R73.02 - Impaired glucose tolerance (oral) Category: Medical Plan: Decrease the amount of carbohydrates such as pasta, bread, rice, and potatoes and limit the amount of sweets. Although fruits are generally healthy they should be eaten in moderation as they are still high in sugar. Plan This note was constructed using voice recognition software. While every effort has been made to ensure accuracy and golf course assistant, still areas may have been included sometimes these areas may affect the content or meeting of the given symptoms. Total time spent caring for the patient today was 20 minutes. This includes time spent before the visit reviewing the chart, time spent during the visit, and time spent after the visit and documentation. Medications: New amlodipine 5 mg PO DAILY 30 tabs 2RF Discontinued amlodipine Discontinued Reason: Duplicate 2.5 mg PO DAILY 30 tabs 2RF
[2024-08-16 13:26] VITALS: BP 130/80; PULSE 79; O2SAT 98; BMI 30.5
[2024-08-16 13:56] VITALS: BP 150/88
== END 2024-08-16 14:16 | disposition home or self-care (01) ==
PROVIDERS: PCP Internal Medicine
DX: E78.00 Pure hypercholesterolemia, unspecified (principal); I10 Essential (primary) hypertension; E66.9 Obesity, unspecified; Z68.30 Body mass index [BMI] 30.0-30.9, adult; R73.02 Impaired glucose tolerance (oral)

== ENCOUNTER → 2024-08-16 13:17 | Outpatient (BNVA) | payer OTHER, SELFPAY | PROVIDERS: PCP Internal Medicine ==

== ENCOUNTER 2024-11-10 09:40 | Outpatient (REF) | payer OTHER, SELFPAY ==
[2024-11-10 10:07] LABS: MANUAL DIFF FLAG NO
[2024-11-10 10:46] LABS: Basophils Percent Auto 0.4 % (0-2); Eosinophils Absolute Auto 0.1 X10*3/uL (0.0-0.4); Eosinophils Percent Auto 2.4 % (0-4); Hematocrit 42.2 % (42.0-52.0); Hemoglobin 14.6 g/dl (14.0-18.0); Imm Gran Abs Auto 0.01 X10*3/uL (0.00-0.03); Imm Gran Pct Auto 0.2 % (0.0-0.4); Lymphocytes Absolute Auto 1.5 X10*3/uL (1.2-4.9); Mean Corpuscular HGB Conc 34.6 g/dl (31.0-36.0); Mean Corpuscular Hemoglobin 30.9 pg (27.0-33.0); Mean Corpuscular Volume 89.2 fL (80.0-98.0); Mean Platelet Volume 8.7 fL (9.4-12.4); Monocytes Absolute Auto 0.6 X10*3/uL (0.1-1.2); Monocytes Percent Auto 12.8 % (2-11); Neutrophils Absolute Auto 2.7 x10*3/uL (2.0-8.3); Neutrophils Percent Auto 54.2 % (45-73); Platelet Count 199 X10*3/uL (160-400); Red Blood Count 4.73 X10*6/uL (4.60-5.80); Red Cell Distribution Width 12.6 % (11.0-16.0)
[2024-11-10 10:52] LABS: Estimated Average Glucose 111 mg/dL; Hemoglobin A1c % 5.5 % (<6.0)
[2024-11-10 11:28] LABS: Alanine Aminotransferase 17 U/L (0-40); Alkaline Phosphatase 66 U/L (39-117); Anion Gap 10 (12-20); Aspartate Amino Transferase 20 U/L (5-37); Bilirubin Total 0.6 mg/dL (0.0-1.0); Blood Urea Nitrogen 15 mg/dL (9-16); Calcium 9.7 mg/dL (8.4-10.2); Carbon Dioxide 32 mmol/L (22-29); Chloride 104 mmol/L (96-108); Cholesterol 196 mg/dL (<200); Estimated Glomerular Filt Rate > 60; Glucose Random 87 mg/dL (60-115); HDL Cholesterol 39 mg/dL (>40); LDL Cholesterol Calculated 115 mg/dL (<100); Potassium 4.3 mmol/L (3.3-5.1); Sodium 142 mmol/L (135-145); Total Protein 7.8 g/dL (6.5-8.0); Triglycerides 212 mg/dL (<150)
--- OUTSIDE RECORDS SUMMARY | 2024-11-10 11:38 | XMS_ITS | Clinical Summary ---
Author Organization [employer] Address [address] [facility] 7[address] [place] [address] Care Team Providers Care Software Engineer Web Applications Name Role Phone Unavailable Primary Care Provider Unavailabl e Allergies No known active allergies Medications lisinopril 40 MG tablet Take 40 mg by mouth Once per day. Active metoprolol succinate XL (Toprol-XL) 50 MG 24 hr tablet TAKE 1 AND 1/2 TABLETS BY MOUTH DAILY FOR TOTAL DAILY DOSE OF 75MG 4 Active LORazepam (Ativan) 1 MG tablet TAKE 1 TABLET BY MOUTH NEEDED FOR ANXIETY. TAKE 1 HR PRIOR TO PROCEDURE 4 Active metoprolol succinate XL (Toprol-XL) 25 MG 24 hr tablet TK 1 T PO WITH 50 MG ONCE D 0 Active simvastatin (Zocor) 20 MG tablet Take 20 mg by mouth Once per day. Active amLODIPine (Norvasc) 2.5 MG tablet Take 2.5 mg by mouth Once per day. 4 Active amoxicillin (Amoxil) 500 MG capsule Take 4 capsules of amoxicillin 500 mg 1 hour prior dental procedure 12 capsule 4 Active amoxicillin (Amoxil) 500 MG capsule Take 4 capsules of amoxicillin 500 mg 1 hour prior dental procedure 12 capsule 4 Active Active Problems No known active problems Encounters Date Type Department Care Team Description 08/17/2024 11:00 AM EST Office Visit [facility] [address] [place] [address] Jazmin Berumen Dental calculus (Primary Dx); Dental plaque from Last 3 Months Immunizations Name Administration Dates Next Due Influenza High-dose Quadrivalent Preservative Fr ee 05/14/2023,06/23/2022 Influenza Quadrivalent Adjuvanted 05/22/2021 Influenza, High Dose Seasonal, Preservative Free 09/07/2019 Influenza, seasonal, injectable, preservative fr ee 05/10/2020 Pfizer Covid-19 Vaccine 12+ 06/07/2024, Pneumococcal Conjugate PCV 20 05/14/2023 Pneumococcal Polysaccharide PPSV23 08/01/2021 Social History Tobacco Use Types Packs/Day Years Used Date Smoking Tobacco: Never Assessed Sex and Gender Information Value Date Recorded Sex Assigned at Male 06/30/2022 10:20 AM EDT Legal Sex Male 10:20 AM EDT Gender Identity Choose not to disclose 2 10:20 AM EDT Sexual Orientation Choose not to disclose 2021 10:20 AM EDT Last Filed Vital Signs Vital Sign Reading Time Taken Comments Blood Pressure 168/88 08/17/2024 11:42 AM EST Pulse - - Temperature - - Respiratory Rate - - Oxygen Saturation - - Inhaled Oxygen Concentration - - Weight - - Height - - Body Mass Index - - Plan of Treatment Upcoming Encounters Date Type Department Care Team ([facility] st Contact Info) Description 02/15/2025 1:00 PM EDT Office Visit [facility] [address] [place] [address] Jazmin Berumen Health Maintenance Due Date Last Done Comments Depression Screening 1942 Lipid Panel 1942 SDOH Screening 1942 Alcohol/Substance Use Screening 1954 Tobacco Screening 1954 DTaP/Tdap/Td Vaccines (1 - Tdap) 1961 Zoster Vaccines (1 of 2) 1992 RSV Patients and Patients Aged 60 years or older (1 - 1-dose 75+ series) 2017 Dental Oral Exam 01/09/2025 07/11/2024 Dental Prophylaxis 02/16/2025 08/17/2024 Dental X-Ray: Bitewings 07/12/2025 07/11/2024 Dental X-Ray: Full Mouth 07/12/2027 07/11/2024 Pneumococcal Vaccine: 50+ Years Completed 05/14/2023, 08/01/2021 COVID-19 Vaccine Completed 06/07/2024, , 06/10/2022, Additional history exists Influenza Vaccine Completed 06/27/2024, , 06/23/2022, Additional history exists HIB Vaccines Aged Out No longer eligi ble based on patient's age to complete this topic HPV Vaccines Aged Out No longer eligi ble based on patient's age to complete this topic Hepatitis A Vaccines Aged Out No long er eligible based on patient's age to complete this topic Hepatitis B Vaccines Aged Out No long er eligible based on patient's age to complete this topic IPV Vaccines Aged Out No longer eligi ble based on patient's age to complete this topic Meningococcal Vaccine Aged Out No bijan layne eligible based on patient's age to complete this topic RSV under 20 months Aged Out No longe r eligible based on patient's age to complete this topic Rotavirus Vaccines Aged Out No longer eligible based on patient's age to complete this topic Procedures Procedure Name Priority Date/Time Associated Diagnosis Comments ORAL HYGIENE INSTRUCTIONS Routine 2023 11:00 AM EST Dental calculus Dental plaque PROPHYLAXIS - ADULT Routine 08/17/2024 1 1:00 AM EST Dental calculus Dental plaque INTRAORAL - COMPLETE SERIES OF RADIOGRAPHIC IMAGES Routine 07/11/2024 10:00 AM EST COMPREHENSIVE ORAL EVALUATION - NEW OR ESTABLISHED PATIENT Routine 07/11/2024 10:00 AM EST Dental calculus Dental plaque Encounter for dental examination Bruxism from Last 3 Months or Most Recently Relevant to Health Maintenance Insurance [facility] STANDARD [facility] DUAL COMPLETE [facility] DUAL COMPLE[facility]AL - [facility] SCO
--- OUTSIDE RECORDS SUMMARY | 2024-11-10 11:38 | XMS_ITS | Clinical Summary ---
Author Organization [facility] Address [address] [place] [address] Care Team Providers Care Plant Control Operator Name Role Phone Po, Cody Virk MD Primary Care Provider [phone] Allergies No known active allergies Medications Medication Sig Dispensed Refills Start Date End Date Status lisinopril (PRINIVIL,ZESTRIL) tablet 40 mg TK 1 T PO ONCE A DAY 0 07/04/2020 Active metoprolol succinate (TOPROL-XL) 24 hr tablet 25 mg TK 1 T PO WITH 50 MG ONCE D 0 07/04/2020 Active simvastatin (ZOCOR) tablet 20 mg TK 1 T PO QD IN THE SERA 0 07/04/2020 Active Active Problems Problem Noted Date Diagnosed Date Traumatic complete tear of left rotator cuff 10/2020 Labral tear of shoulder, left, initial encounter 10/04/2020 Traumatic complete tear of left rotator cuff 11/2020 Family History Medical History Relation Name Comments Cancer Sister Relation Name Status Comments Sister Social History Tobacco Use Types Packs/Day Years Used Date Smoking Tobacco: Never Assessed Sex and Gender Information Value Date Recorded Sex Assigned at Not on file Gender Identity Not on file Sexual Orientation Not on file Last Filed Vital Signs Vital Sign Reading Time Taken Comments Blood Pressure - - Pulse - - Temperature - - Respiratory Rate - - Oxygen Saturation - - Inhaled Oxygen Concentration - - Weight 99.8 kg (220 lb) 10/04/2020 8:46 AM EST Height 182.9 cm (6') 10/04/2020 8:46 AM EST Body Mass Index 29.84 10/04/2020 8:46 AM EST Plan of Treatment Health Maintenance Due Date Last Done Comments COVID-19 Vaccine (#1) 01/27/1941 Depression Screening 1954 Preventative Health Evaluation 1960 DTap / Tdap / Td (1 - Tdap) 1961 Shingrix-Zoster Vaccine (1 of 2) 1992 Fall Risk Assessment 2007 Pneumococcal Vaccine (1 of 1 - PCV) 2007 RSV Adult > 60+ Yrs or Pregn ant (1 - 1-dose 75+ series) 2017 Influenza Vaccine (#1) 2024 Hepatitis B Vaccines Aged Out No long er eligible based on patient's age to complete this topic RSV Ped < 20 months Aged Out No longe r eligible based on patient's age to complete this topic Care Teams Plant Control Operator Relationship Specialty Start Date End Date Cody Boston MD [address] [place] [address] [address] [facility] [place] [address] PCP - General Internal Medicine 12/24/17
[2024-11-10 11:50] LABS: Free T4 (Free Thyroxine) 1.14 ng/dL (0.71-1.85); Thyroid Stimulating Hormone 1.18 uIU/mL (0.32-4.0)
[2024-11-10 11:52] LABS: Folate 8.3 ng/mL (> or = 4.0); Vitamin B12 214 pg/mL (200-900)
== END 2024-11-10 09:41 | disposition home or self-care (01) ==
LOC: HO.LAB 09:40
PROVIDERS: PCP Internal Medicine; Visit Provider Internal Medicine
DX: R73.02 Impaired glucose tolerance (oral) (principal); E78.00 Pure hypercholesterolemia, unspecified
CPT/HCPCS: 36415; 80053; 80061; 82607; 82746; 83036; 84439; 84443; 85025

== ENCOUNTER 2024-12-12 10:02 | Outpatient (AMB) | payer OTHER, SELFPAY ==
--- NOTE | 2024-12-12 10:10 | A.OFFVIS_ITS ---
Intake Visit Reasons: OV-Rt TKA f/u Intake Note: Saulo is an 84 year old male who presents today for a follow up of his right knee pain s/p Right TKA with Dr. Gonzales on 05/25/2023. Patient reports that he is having continued pain an discomfort with his right knee. He has follow through with pain management referral but he does not feel that he is getting relief with them Allergies No Known Allergies Allergy (Mild, Verified 08/16/24 13:26) NKA HPI HPI OV-Rt TKA f/u: Details: 84-year-old gentleman 18 months status post right knee replacement. He has difficulty sleeping at night with occasional pain on extended ambulation. Mostly he perseverates on why he isn't feeling 100% pain-free and still unable to get through the day without thinking about his knee. He has no evidence of infection. Denies fevers and chills. Does not have pain at rest. He is able to ambulate comfortably for extended periods of time but then there are other times where his knee is too uncomfortable. Does not describe pain however. [facility] Medical History Preoperative clearance Annual physical exam Anxiety and depression Tubular adenoma of colon Urinary frequency Arthritis of right knee Blind left eye Bilateral shoulder pain Low back pain Rotator cuff rupture COVID-19 virus infection Obesity (BMI 30-39.9) Vitamin D deficiency Impaired glucose tolerance Hypercholesterolemia Hypertension Dislocation of shoulder, left, closed Erectile dysfunction Surgical History Hx of cataract extraction Hx of colonoscopy H/O prostatectomy H/O left knee surgery History of rhinoplasty History of tonsillectomy S/P rotator cuff repair Family History Father Acute leukemia Mother No problems noted. Social History Household Members: None Housing: Apartment Are you a primary regular senior care provider to a significant other at home: No Do you presently have visiting nurse or other home services: No Alcohol intake: former Patient Tobacco Use Status: Never used Tobacco e-Cigarette/Vaping Use: Never Used Second Hand Smoke Exposure: No Advance Directives Date on File: 06/01/20 service: No Current occupational status: retired Cognitive needs: No Hearing needs: No Vision needs: No Physical Exam Extrem Other: Incision clean dry and intact with no effusion. Normal gait. Stable to varus and valgus stress. There is some normal 8 a P laxity while in flexion that produces some noise. Results Reviewed Results Reviewed: I personally reviewed relevant radiographs. Right total knee arthroplasty in expected post operative position with no hardware complications or evidence of loosening Assessment & Plan Assessment & Plan (1) Status post total right knee replacement: Comment: 05/25/2023 Dr. Gonzales Code(s): Z96.651 - Presence of right artificial knee joint Category: Surgical Plan: Status post knee replacement doing okay. No evidence of complication. I think he is somewhat unsatisfied that his knee still bothers him but I think it is improving every time I see him and he is not in pain in I recommend that he continue activity as tolerated. He continue his exercise regimen and can return to see me in any time. No additional intervention warranted. Orders: Orders XR knee RT 3V Today M25.561 - Pain in right knee Coding Level of Care Code Est Pt Level 3 (08363) Diagnoses Status post total right knee replacement Z96.651
--- OUTSIDE RECORDS SUMMARY | 2024-12-12 11:20 | XMS_ITS | Clinical Summary ---
Author Organization [facility] Address [address] [place] [address] Care Team Providers Care Chief Load Dispatcher Name Role Phone Po, Cody Virk MD Primary Care Provider [phone] Allergies No known active allergies Medications Medication [...] age to complete this topic Care Teams Chief Load Dispatcher Relationship Specialty Start Date End Date Cody Boston MD [address] [place] [address] [address] [facility] [place] [address] PCP - General Internal Medicine 12/24/17
--- OUTSIDE RECORDS SUMMARY | 2024-12-12 11:20 | XMS_ITS | Clinical Summary ---
Author Organization [employer] Address [address] [facility] [address] [place] [address] Care Team Providers Care Dental Therapist Name Role Phone Unavailable Primary Care Provider [...] Active Active Problems No known active problems Immunizations Name Administration Dates Next Due Influenza High-dose Quadrivalent Preservative [facility] 05/14/2023,06/23/2022 Influenza Quadrivalent Adjuvanted 05/22/2021 Influenza, High Dose Seasonal, Preservative Free 09/07/2019 Influenza, seasonal, injectable, preservative [facility] 05/10/2020 Pfizer Covid-19 Vaccine 12+ 06/07/2024, 3 Pneumococcal Conjugate PCV 20 05/14/2023 Pneumococcal Polysaccharide PPSV23 08/01/2021 Social History Tobacco Use Types Packs/Day Years Used Date Smoking Tobacco: Never Assessed Sex and Gender Information Value Date Recorded Sex Assigned at Male 06/30/2022 10:20 AM EDT Legal Sex Male 10:20 AM EDT Gender Identity Choose not to disclose 10:20 AM EDT Sexual Orientation Choose not [...] Upcoming Encounters Date Type Department Care Team (Late st Contact Info) Description 02/15/2025 1:00 PM EDT Office Visit [facility] [address] [place] [address] BerumenJazmin Health Maintenance Due Date Last Done Comments [...] Procedure Name Priority Date/Time Associated Diagnosis Comments PROPHYLAXIS - ADULT Routine 08/17/2024 1 1:00 AM EST Dental calculus Dental plaque INTRAORAL - COMPLETE SERIES OF RADIOGRAPHIC IMAGES Routine 07/11/2024 10:00 AM EST COMPREHENSIVE ORAL EVALUATION - NEW OR ESTABLISHED PATIENT Routine 07/11/2024 10:00 AM EST Dental calculus Dental plaque Encounter for dental examination Bruxism from Last 3 Months or Most Recently Relevant to Health Maintenance Insurance [facility] STANDARD [facility] DUAL COMPLETE [facility] DUAL COMPLETE DENTAL - [facility]
== END 2024-12-12 10:56 | disposition home or self-care (01) ==
LOC: HO.HOS 10:03
PROVIDERS: PCP Internal Medicine; Visit Provider Orthopaedic Surgery
DX: Z47.89 Encounter for other orthopedic aftercare (principal); Z96.651 Presence of right artificial knee joint
CPT/HCPCS: 99213

== ENCOUNTER 2024-12-12 10:02 | Outpatient (REF) | payer OTHER, SELFPAY ==
--- NOTE | ~2024-12-12 | XR_ITS ---
EXAMINATION: XR KNEE, RIGHT CLINICAL INFORMATION: M25.561 - Pain in right knee COMPARISON: 10/13/2023, 06/11/2023. TECHNIQUE: AP view bilateral knees standing, lateral and patellofemoral views right knee. FINDINGS: LEFT Knee: No fracture or dislocation. Mild to moderate medial compartment joint space narrowing. Mild spurring of the tibial spines. Normal soft tissues. RIGHT Knee: There has been total knee arthroplasty with associated patellar resurfacing. Tibial, and femoral components appear well seated, in anatomic alignment. No periprosthetic fracture or evidence of loosening. No significant joint effusion. No bone lesion. Normal-appearing soft tissues aside from early vascular calcifications. XR/XR knee RT 3V IMPRESSION: 1. Total right knee arthroplasty without complication. Electronically signed by: Kirk Saini MD 12/12/2024 03:33 PM EDT
--- OUTSIDE RECORDS SUMMARY | 2024-12-12 11:53 | XMS_ITS | Clinical Summary ---
Author Organization [facility] Address [address] [place] [address] Care Team Providers Care Cloth Boil Off Machine Operator Name Role Phone Po, Cody Virk MD Primary Care Provider [phone] Allergies No known active allergies Medications Medication [...] age to complete this topic Care Teams Cloth Boil Off Machine Operator Relationship Specialty Start Date End Date Cody Boston MD [address] [place] [address] [address] [facility] [place] [address] PCP - General Internal Medicine 12/24/17
--- OUTSIDE RECORDS SUMMARY | 2024-12-12 11:53 | XMS_ITS | Clinical Summary ---
Author Organization [employer] Address [address] [facility] [address] [place] [address] Care Team Providers Care Pony Ride Operator Name Role Phone Unavailable Primary Care Provider [...] Dates Next Due Influenza High-dose Quadrivalent Preservative [facility] 05/14/2023,06/23/2022 Influenza Quadrivalent Adjuvanted 05/22/2021 Influenza, High Dose Seasonal, Preservative Free 09/07/2019 Influenza, seasonal, injectable, preservative [facility] 05/10/2020 Pfizer Covid-19 Vaccine 12+ 06/07/2024, 3 [...] Description 02/15/2025 1:00 PM EDT Office Visit [facility] [address] [place] [address] BerumenJazmin Health Maintenance Due Date Last Done [...] Most Recently Relevant to Health Maintenance Insurance [facility] STANDARD [facility] DUAL COMPLETE [facility] DUAL COMPLETE DENTAL - [facility] SCO
== END 2024-12-12 10:03 | disposition home or self-care (01) ==
LOC: HO.HOSX 10:02
PROVIDERS: PCP Internal Medicine; Visit Provider Orthopaedic Surgery
DX: M25.561 Pain in right knee (principal); Z96.651 Presence of right artificial knee joint; M17.12 Unilateral primary osteoarthritis, left knee
CPT/HCPCS: 73562; 99212

== ENCOUNTER → 2024-12-12 10:27 | Outpatient (BNV) | payer OTHER, SELFPAY | PROVIDERS: PCP Internal Medicine; Visit Provider Radiology Diagnostic Radiology | DX: M25.561 Pain in right knee (principal) | CPT/HCPCS: 73562 ==

== ENCOUNTER → 2025-05-04 08:20 | Outpatient (BNV) | payer OTHER, SELFPAY | PROVIDERS: Emergency Provider Emergency Medicine; PCP Internal Medicine; Visit Provider Radiology Diagnostic Radiology | DX: M25.561 Pain in right knee (principal); Z96.651 Presence of right artificial knee joint | CPT/HCPCS: 73562 ==

== ENCOUNTER 2025-05-04 08:50 | Emergency (ER) | payer OTHER, SELFPAY ==
--- NOTE | ~2025-05-04 | XR_ITS ---
EXAMINATION: XR KNEE, RIGHT CLINICAL INFORMATION: nontraumatic pain COMPARISON: 12/12/2024 TECHNIQUE: Four views of the right knee. FINDINGS: There has been a total right knee arthroplasty. Femoral, and tibial components appear intact, well seated, in anatomic alignment. There is no periprosthetic loosening or fracture. No complication evident. There is been associated patellar resurfacing. There is no bone lesion. There is no significant joint effusion evident. Normal-appearing soft tissues aside from early vascular calcifications. XR/XR knee RT 3V IMPRESSION: Total right knee arthroplasty without complication evident. No joint effusion noted. Electronically signed by: Kirk Saini MD 05/04/2025 09:34 AM EDT
[2025-05-04 08:55] VITALS: BP 169/81; PULSE 72; RESP 20; TEMP 37; O2SAT 98; BMI 35.8
--- NOTE | 2025-05-04 09:29 | ED_ITS ---
HPI - General Adult General Chief complaint: Extremity Injury, Lower Stated complaint: burning sensation r knee Time Seen by Provider: 05/04/25 09:28 Source: patient Mode of arrival: ambulatory Limitations: no limitations History of Present Illness ED Provider: Lilia Vickers PA-C HPI narrative: Patient is an 84 year old assigned male at with a history of HTN, anemia, and a right knee replacement presenting to the emergency department today with right knee pain. Patient states that over the last 3 days he has had a burning type pain in his right knee. Patient denies any other complaints at this time. Patient denies any trauma / falls. Patient states that he has had intermittent issues with this over the last few years but over the last 3 days it has been constant. Patient states that he did climb a ladder and symptoms started after that. Onset (ago): day(s) (3) Related Data Previous Rx's ?Medication ?Instructions ?Recorded acetaminophen 325 mg tablet 650 mg (2 x 325 mg) PO Q6H PRN 05/27/23 Pain, Mild (Pain Scale 1-3) 30 days #240 tabs metoprolol succinate 50 mg 75 mg (1.5 x 50 mg) PO ANIRUDH Y #90 07/04/24 tablet,extended release 24 hr tabs amlodipine 5 mg tablet 5 mg PO DAILY #30 tabs 11/21 lisinopril 40 mg tablet 40 mg PO DAILY #90 tabs 03/24 simvastatin 20 mg tablet 20 mg PO DAILY #90 tabs 02/28 02/22 prednisone 20 mg tablet 40 mg (2 x 20 mg) PO DAILY C OPD 05/04/25 exacerbation 5 days #10 tabs Allergies Allergy/AdvReac Type Severity Reaction Status Date / Time No Known Allergies Allergy Mild NKA Verified 05/04/25 08:59 Review of Systems Constitutional: Constitutional: Reports as per HPI Eyes: Eyes: Reports as per HPI ENT: Reports as per HPI Cardiovascular: Cardiovascular: Reports as per HPI Respiratory: Respiratory: Reports as per HPI Gastrointestinal: Gastrointestinal: Reports as per HPI Genitourinary: Genitourinary: Reports as per HPI Musculoskeletal: Musculoskeletal: Reports as per HPI Integumentary/Breasts: Skin/Breast: Reports as per HPI Neurologic: Reports as per HPI Psychiatric: Psychiatric: Reports as per HPI Endocrine: Endocrine: Reports as per HPI Hematologic/Lymphatic: Hematologic/Lymphatic: Reports as per HPI Allergic/Immunologic: Allergic/Immunologic: Reports as per HPI [facility] Past Medical History Attestation statement: The following information was validated with the patient. Source: old records reviewed and nursing notes reviewed Medical History Preoperative clearance Annual physical exam Anxiety and depression Tubular adenoma of colon Urinary frequency Arthritis of right knee Blind left eye Bilateral shoulder pain Low back pain Rotator cuff rupture COVID-19 virus infection Obesity (BMI 30-39.9) Vitamin D deficiency Impaired glucose tolerance Hypercholesterolemia Hypertension Dislocation of shoulder, left, closed Erectile dysfunction Surgical History Hx of cataract extraction Hx of colonoscopy H/O prostatectomy H/O left knee surgery History of rhinoplasty History of tonsillectomy S/P rotator cuff repair Family History Family History Father Acute leukemia Mother No problems noted. Social History Social History Household Members: None Housing: Apartment Are you a primary primary care coordinator to a significant other at home: No Do you presently have visiting nurse or other home services: No Alcohol intake: former Patient Tobacco Use Status: Never used Tobacco e-Cigarette/Vaping Use: Never Used Second Hand Smoke Exposure: No Advance Directives: Yes Advance Directives on File: Yes Advance Directives Date on File: 06/01/20 service: No Current occupational status: retired Cognitive needs: No Hearing needs: No Vision needs: No Physical Exam ED Vital Signs: Vital Signs - 24 hr 05/04/25 08:55 05/04/25 10:18 Temperature 98.6 F 98.6 F Pulse Rate 72 72 Respiratory Rate 20 20 Blood Pressure 169/81 H 169/81 H Pulse Oximetry 98 98 Oxygen Delivery Method Room Air Room Air BMI result Body Mass Index 35.8 Const General: cooperative, no acute distress, alert and awake Nutritional Appearance: well nourished Orientation/consciousness: patient oriented x3 HENMT Head: Yes normal to inspection and Yes atraumatic Ears: hearing grossly normal bilaterally and external ears normal General nose exam: Normal external nose present, no nasal discharge noted and no epistaxis Face and sinus: Yes normal facial exam, No abrasion and No laceration Mouth: Normal oral and palatal mucosa present, no drooling and no muffled voice Eyes General: appearance normal, both eyes and all related structures Periorbital: periorbital findings normal Eyelids: Yes eyelids normal Conjunctivae: conjunctivae normal Pupils: Equal, round and reactive pupils present EOM: EOMs intact bilaterally Neck Neck: Yes normal visual inspection and Yes full ROM Resp Effort & Inspection: normal respiratory effort and able to speak in complete sentences Neuro General: patient oriented x3, moves all extremities and CN's II-XI intact bilaterally Cranial nerves: Yes Equal, round and reactive pupils present Cognition (Neuro): normal cognition Extrem General: Yes normal to inspection, Yes full ROM and Yes capillary refill normal Psych Appearance: grossly normal Mental Status: mental status grossly normal Affect: normal affect Attitude: cooperative Thought process: Normal thought process present Thought content: Normal thought content present Insight: Good insight present (Psych) Medications Administered Discontinued Medications Generic Name Dose Route Start Last Admin Trade Name Freq PRN Reason Stop Dose Admin Ketorolac Tromethamine 15 mg 05/04/25 09:47 05/04/25 09:54 Ketorolac Tromethamine 15 Mg/Ml Vial IM 05/04/25 09:48 15 mg ONCE ONE Administration Methylprednisolone Sodium Succinate 60 mg 05/04/25 09:47 05/04/25 09:54 Methylprednisolone Sod Succ 125 Mg/2 Ml Vial IM 05/04/25 09:48 60 mg ONCE ONE Administration Medical Decision Making Medical Decision Making [facility] Narrative: Patient is an 84 year old assigned male at with a history of HTN, anemia, and a right knee replacement presenting to the emergency department today with right knee pain. Patient's physical exam was unremarkable. Patient's right knee x-ray showed no acute process. Patient's clinical presentation is most consistent with right knee pain. I explained my physical exam findings as well as all test results to the patient. I answered all questions asked by the patient. I stressed the importance of the patient taking his medication as directed (either prescribed or as the over the counter packaging recommends). I stressed the importance of the patient following up with his primary care provider and the orthopedic team. I stressed the importance of the patient returning to the emergency department immediately if his symptoms were to worsen or if he were to develop any dizziness, shortness of breath, difficulty breathing, chest pain, blurry vision, loss of vision, nausea, vomiting, abdominal pain, fever, chills, back pain, or any other complaints. Patient verbalized agreement and understanding with this treatment plan and discharge. Differential Diagnosis Differential Diagnoses: The differential diagnosis associated with the presentation includes Right knee pain Right knee strain Right knee sprain Admission/Observation Consideration of admission/observation: Escalation of care including admission/observation considered Patient would have been admitted to the hospital had his work up had any findings where hospital admission was appropriate and his clinical presentation warranted hospital admission. Independent Interpretation I performed an independent interpretation of an: Plain X-Ray Interpretation: My interpretation is in agreement with the radiologist's impression of this imaging study. EXAMINATION: XR KNEE, RIGHT CLINICAL INFORMATION: nontraumatic pain COMPARISON: 12/12/2024 TECHNIQUE: Four views of the right knee. FINDINGS: There has been a total right knee arthroplasty. Femoral, and tibial components appear intact, well seated, in anatomic alignment. There is no periprosthetic loosening or fracture. No complication evident. There is been associated patellar resurfacing. There is no bone lesion. There is no significant joint effusion evident. Normal-appearing soft tissues aside from early vascular calcifications. XR/XR knee RT 3V IMPRESSION: Total right knee arthroplasty without complication evident. No joint effusion noted. Electronically signed by: Kirk Saini MD 05/04/2025 09:34 AM EDT Dictated By: Kirk Saini MD Signed By: Electronically signed by Kirk Saini MD 05/04/25 0934 Radiology Impression Discussion of test interpretation with radiology: I have reviewed the radiologist's reading. Discharge Plan Discharge Clinical Impression: Acute knee pain Patient Disposition: Home, Self-Care Instructions: Knee Pain (ED) Additional Instructions: Your right knee x-ray showed no evidence of fracture / break. I am suspicious that inflammation around the replacement is causing your pain. IF you are prescribed home medications and/or you are taking over the counter medications at home - it is very important you continue to do so as prescribed / directed unless told otherwise. Follow up with your primary care provider. Return to the emergency department immediately if your symptoms worsen or if you develop any numbness, tingling, dizziness, shortness of breath, difficulty breathing, chest pain, blurry vision, loss of vision, nausea, vomiting, abdominal pain, fever, chills, back pain, or any other complaints. Please see the information below about our Patient Portal. If you are not yet enrolled in the [facility] Patient Portal, you will receive an enrollment email invitation following your visit to any [facility] setting. You may also self-enroll in the Patient Portal by visiting our website: [email or web address] The following information is required to access the Patient Portal: - Your [facility] Medical Record Number - Your personal home email address (must match what is in your electronic medical record, Registration staff can assist with this) - Name - Date of Capabilities of the Patient Portal: - Message some providers - View upcoming appointments - Access your health summary, medical history, and visit history - View current conditions and allergies - View procedure and lab results - View your medications, including guidelines, side effects, and precautions - Complete pre-appointment questionnaires requested by your provider - Ready summary reports of your office visits and procedures To access the Patient Portal Mobile Richard, follow these directions: - Search [employer] in the Richard Store or Google Bjond Store - Download the Richard - Search for [facility] - Enter your login/password Prescriptions: New prednisone 20 mg tablet 40 mg PO DAILY 5 Days Qty: 10 0RF No Action amlodipine 5 mg tablet 5 mg PO DAILY Qty: 30 2RF lisinopril 40 mg tablet 40 mg PO DAILY Qty: 90 2RF simvastatin 20 mg tablet 20 mg PO DAILY Qty: 90 0RF acetaminophen 325 mg Tablet 650 mg PO Q6H PRN (Reason: Pain, Mild (Pain Scale 1-3)) 30 Days Qty: 240 0RF metoprolol succinate 50 mg tablet extended release 24 hr 75 mg PO DAILY Qty: 90 3RF Rx Instructions: 50 mg + 25 mg = 75 mg QD Referrals: [facility] Orthopedic Surgeons [Provider Group] Referral Note: Call to establish and follow up with the orthopedic team. Cody Boston MD [Primary Care Provider, Internal Medicine] Interventions: ED Discharge Assessment Last Done: 05/04/25 10:18 Discharge Date/Time: 05/04/25 10:18 Print Language: Thai
--- OUTSIDE RECORDS SUMMARY | 2025-05-04 10:15 | XMS_ITS | Clinical Summary ---
Author Organization [employer] Address [address] [facility] [address] [place] [address] Care Team Providers Care Pattern Storage Clerk Name Role Phone Unavailable Primary Care Provider [...] Encounters Date Type Department Care Team Description 02/17/2025 9:00 AM EDT Office Visit [facility] [address] [place] [address] Bette Tran Dental calculus (Primary Dx) from Last 3 Months Immunizations Immunization Administration Dates Next Due Influenza High-dose Quadrivalent Preservative Fr ee 05/14/2023,06/23/2022 Influenza Quadrivalent Adjuvanted 05/22/2021 Influenza, High Dose Seasonal, Preservative Free 09/07/2019 Influenza, seasonal, injectable, preservative fr ee 05/10/2020 Pfizer Covid-19 Vaccine 12+ 06/07/2024, Pneumococcal Conjugate PCV 20 05/14/2023 Pneumococcal Polysaccharide PPSV23 08/01/2021 Social History Tobacco Use Types Packs/Day Years Used Date Smoking Tobacco: Never Smokeless Tobacco: Never Tobacco Cessation:Counseling Given: Not Answered Alcohol Use Standard Drinks/Week Comments Defer 0 (1 standard drink = 0.6 oz pur e alcohol) Sex and Gender Information Value Date Recorded Sex Assigned at Male 06/30/2022 10:20 AM EDT Legal Sex Male 10:20 AM EDT Gender Identity Choose not to disclose 10:20 AM EDT Sexual Orientation Choose not to disclose 2021 10:20 AM EDT Last Filed Vital Signs Vital Sign Reading Time Taken Comments Blood Pressure 132/78 02/17/2025 9:23 AM EDT Pulse - - Temperature - - Respiratory Rate - - Oxygen Saturation - - Inhaled Oxygen Concentration - - Weight - - Height - - Body Mass Index - - Plan of Treatment Health Maintenance Due Date Last Done Comments Depression Screening 1942 Lipid Panel 1942 SDOH Screening 1942 Alcohol/Substance Use Screening 1954 DTaP/Tdap/Td Vaccines (1 - Tdap) 1961 Zoster Vaccines (1 of 2) 1992 RSV Patients and Patients Aged 60 years or older (1 - 1-dose 75+ series) 2017 Dental Oral Exam 01/09/2025 07/11/2024 COVID-19 Vaccine ( season) 2025 06/07/2024, 08/20/2023, 06/10/2022, Additional history exists Influenza Vaccine (#1) 2025 , 05/14/2023, 06/23/2022, Additional history exists Dental X-Ray: Bitewings 07/12/2025 07/11/2024 Dental Prophylaxis 08/20/2025 02/17/2025, 08/17/2024 Tobacco Screening 02/17/2026 02/17/2025 Dental X-Ray: Full Mouth 07/12/2027 07/11/2024 Pneumococcal Vaccine: 50+ Years Completed 05/14/2023, 08/01/2021 HIB Vaccines Aged Out No longer eligi [...] patient's age to complete this topic Meningococcal B Vaccine Aged Out No l onger eligible based on patient's age to complete [...] Associated Diagnosis Comments ORAL HYGIENE INSTRUCTIONS Routine 2024 9:00 AM EDT PROPHYLAXIS - ADULT Routine 02/17/2025 9 :00 AM EDT INTRAORAL - COMPLETE SERIES OF RADIOGRAPHIC IMAGES Routine 07/11/2024 10:00 AM EST COMPREHENSIVE ORAL EVALUATION - NEW OR ESTABLISHED PATIENT Routine 07/11/2024 10:00 AM EST Dental calculus Dental plaque Encounter for dental examination Bruxism from Last 3 Months or Most Recently Relevant to Health Maintenance Insurance [facility] [employer] [facility] DUAL COMPLETE [facility] DUAL COMPLETE [facility]
--- OUTSIDE RECORDS SUMMARY | 2025-05-04 10:15 | XMS_ITS | Clinical Summary ---
Author Organization [facility] Address [address] [place] [address] Care Team Providers Care Turn Down Attendant Name Role Phone Po, Cody Virk MD Primary Care Provider [phone] Allergies No known active allergies Medications Medication [...] 1-dose 75+ series) 2017 Influenza Vaccine (#1) 2025 Hepatitis B Vaccines Aged Out No long er eligible based on patient's age to complete this topic RSV Ped < 20 months Aged Out No longe r eligible based on patient's age to complete this topic Care Teams Turn Down Attendant Relationship Specialty Start Date End Date Cody Boston MD [address] [place] [address] [address] [facility] [place] [address] PCP - General Internal Medicine 12/24/17
[2025-05-04 10:18] VITALS: BP 169/81; PULSE 72; RESP 20; TEMP 37; O2SAT 98
== END 2025-05-04 10:18 | disposition home or self-care (01) ==
PROVIDERS: Emergency Provider Emergency Medicine; PCP Internal Medicine
DX: M25.561 Pain in right knee (principal); D64.9 Anemia, unspecified; I10 Essential (primary) hypertension; Z96.651 Presence of right artificial knee joint; Z79.899 Other long term (current) drug therapy
CPT/HCPCS: 73562; 96372; 99283; 99284; J1885; J2919

== ENCOUNTER 2025-05-08 10:33 | Emergency (ER) | payer OTHER, SELFPAY ==
[2025-05-08 10:57] VITALS: BP 186/92; PULSE 91; RESP 18; TEMP 37; O2SAT 98; BMI 29.8
--- NOTE | 2025-05-08 12:21 | ED_ITS ---
HPI - Extremity Injury (Lower) General Chief Complaint: Extremity Injury, Lower Stated Complaint: Knee pain Time Seen by Provider: 05/08/25 12:00 Source: patient and RN notes reviewed Mode of arrival: ambulatory Limitations: no limitations History of Present Illness ED Provider: Pascale De Jesus PA-C [facility] Narrative: This is a 84-year-old male who presents emergency department with concerns of right knee pain. Patient reports that he was seen here in the emergency room 4 days ago and had an x-ray revealing no significant findings, he was discharged on prednisone. He has been taking the prednisone however states that he is having burning sensation every time he takes this therefore he does not like taking this medication. He received a phone call for follow-up and believed that he had to return back. He states no new injury or trauma. No fevers or chills. He is ambulatory, no current pain. Joints or concerns at this time. Relieving factors: nothing Exacerbating factors: nothing Other symptoms: none Related Data Previous Rx's ?Medication ?Instructions ?Recorded metoprolol succinate 50 mg 75 mg (1.5 x 50 mg) PO ANIRUDH Y #90 07/04/24 tablet,extended release 24 hr tabs amlodipine 5 mg tablet 5 mg PO DAILY #30 tabs 11/21 lisinopril 40 mg tablet 40 mg PO DAILY #90 tabs 03/24 simvastatin 20 mg tablet 20 mg PO DAILY #90 tabs 02/28 02/22 acetaminophen 325 mg tablet 325 mg PO QID PRN pain #30 tabs 05/08/25 (Tylenol) Allergies Allergy/AdvReac Type Severity Reaction Status Date / Time No Known Allergies Allergy Mild NKA Verified 05/15/25 09:26 Review of Systems Review of Systems: Constitutional : No Fever, No Chills ENT/Mouth : No sore throat, No Rhinorrhea Eyes: No Eye Pain, No Swelling, No Redness Cardiovascular : No Chest Pain, No SOB Respiratory : No Cough, No Sputum Gastrointestinal : No Nausea, No Vomiting, No Diarrhea, No abdominal Pain Genitourinary : No Dysuria, No Hematuria Musculoskeletal :+joint pain, No Myalgias, No Joint Swelling Skin : No Skin Lesions Neuro : No Weakness, No Numbness, No Headache All other systems reviewed and are negative Yes all other systems are reviewed and are negative Constitutional: Constitutional: Reports as per HPI [facility] Past Medical History Medical History Preoperative clearance Annual physical exam Anxiety and depression Tubular adenoma of colon Urinary frequency Arthritis of right knee Blind left eye Bilateral shoulder pain Low back pain Rotator cuff rupture COVID-19 virus infection Obesity (BMI 30-39.9) Vitamin D deficiency Impaired glucose tolerance Hypercholesterolemia Hypertension Dislocation of shoulder, left, closed Erectile dysfunction Surgical History Hx of cataract extraction Hx of colonoscopy H/O prostatectomy H/O left knee surgery History of rhinoplasty History of tonsillectomy S/P rotator cuff repair Family History Family History Father Acute leukemia Mother No problems noted. Social History Social History Household Members: None Housing: Apartment Are you a primary intensive care unit registered nurse to a significant other at home: No Do you presently have visiting nurse or other home services: No Alcohol intake: former Patient Tobacco Use Status: Never used Tobacco e-Cigarette/Vaping Use: Never Used Second Hand Smoke Exposure: No Advance Directives Date on File: 05/28/23 service: No Current occupational status: retired Cognitive needs: No Hearing needs: No Vision needs: No Physical Exam Exam: Exam: General: Awake, alert, and oriented X3. No acute distress. HEENT: Normal inspection CVS: Normal heart rate and rhythm. Pulses normal. Respiratory: No respiratory distress Skin: Warm, dry, no rashes noted to exposed skin. Normal skin color. Normal skin turgor. Extremities: Right lower extremity with no obvious bony deformity or swelling, full ROM, no tenderness palpation. No overlying erythema or edema Neuro: Oriented X 3. No motor deficit. No sensory deficit. Vital Signs: Vital Signs: Last Vital Signs Temp 98.6 F 05/08/25 12:32 Pulse 80 05/08/25 12:32 Resp 18 05/08/25 12:32 BP 186/92 H 05/08/25 12:32 Pulse Ox 98 05/08/25 12:32 O2 Del Method Room Air 05/08/25 12:32 BMI result Body Mass Index 29.8 Medical Decision Making Medical Decision Making MDM Narrative: This is a [id number]-male who presents emergency department for right knee pain. He was seen here 4 days ago discharged on prednisone, he has been taking this however now is having a burning sensation in his abdomen every time he takes this. He has follow-up with pain management been several days. He thought he was supposed to come in as he received a call, he did not realize that this caught was just to review his experience in the emergency room. On arrival, patient is hypertensive at 186/92, he has no headache, dizziness, blurred vision, chest pain or shortness of breath. Patient states that he is feeling well, advised to take Tylenol, and follow-up with the automotive painter helper. No new trauma or injury, no calf tenderness. No edema. Given strict return precautions. He understands and agrees with plan. Patient stable for discharge. Differential Diagnosis Differential Diagnoses: The differential diagnosis associated with the presentation includes Chronic pain, osteoarthritis, sprain, strain Discharge Plan Discharge Clinical Impression: Chronic knee pain Patient Disposition: Home, Self-Care Instructions: Knee Pain (ED) Additional Instructions: You were seen in the emergency department for knee pain. Please take Tylenol as needed for pain. We disposed of your prednisone, this medication was given to you at your last visit. Follow-up with your automotive painter helper as scheduled on Thursday. If any new or worsening symptoms occur including but not limited to worsening pain, inability to walk secondary to your pain, increased redness or swelling to your right knee, chest pain, shortness of breath, please seek emergent care. Prescriptions: New acetaminophen [Tylenol] 325 mg tablet 325 mg PO QID PRN (Reason: pain) Qty: 30 0RF No Action amlodipine 5 mg tablet 5 mg PO DAILY Qty: 30 2RF lisinopril 40 mg tablet 40 mg PO DAILY Qty: 90 2RF simvastatin 20 mg tablet 20 mg PO DAILY Qty: 90 0RF metoprolol succinate 50 mg tablet extended release 24 hr 75 mg PO DAILY Qty: 90 3RF Rx Instructions: 50 mg + 25 mg = 75 mg QD Interventions: ED Discharge Assessment Last Done: 05/08/25 12:32 Discharge Date/Time: 05/08/25 12:35 Print Language: Slovak
[2025-05-08 12:32] VITALS: BP 186/92; PULSE 80; RESP 18; TEMP 37; O2SAT 98
--- OUTSIDE RECORDS SUMMARY | 2025-05-08 14:10 | XMS_ITS | Clinical Summary ---
Author Organization [facility] Address [address] [place] [address] Care Team Providers Care Shirt Maker Name Role Phone Po, Cody Virk MD Primary Care Provider [phone] Allergies No known active allergies Medications Medication [...] age to complete this topic Care Teams Shirt Maker Relationship Specialty Start Date End Date Cody Boston MD [address] [place] [address] [address] [facility] [place] [address] PCP - General Internal Medicine 12/24/17
--- OUTSIDE RECORDS SUMMARY | 2025-05-08 14:10 | XMS_ITS | Clinical Summary ---
Author Organization [employer] Address [address] [facility] [address] [place] [address] Care Team Providers Care Day Camp Counselor Name Role Phone Unavailable Primary Care Provider [...] Description 02/17/2025 9:00 AM EDT Office Visit [facility] ADULT D[facility]AL [address] [place] [address] Bette Tran Dental calculus (Primary Dx) from [...] Most Recently Relevant to Health Maintenance Insurance [facility] STANDARD [facility] DUAL COMPLETE [facility] COM[facility]TE [facility]
== END 2025-05-08 12:35 | disposition home or self-care (01) ==
PROVIDERS: Emergency Provider Emergency Medicine; PCP Internal Medicine
DX: M25.561 Pain in right knee (principal); G89.29 Other chronic pain
CPT/HCPCS: 99282; 99283

== ENCOUNTER 2025-05-10 10:13 | Outpatient (AMB) | payer OTHER, SELFPAY ==
--- NOTE | 2025-05-10 10:15 | A.OFFVIS_ITS ---
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 The pain has been persistent and severe enough to impact his ability to walk, necessitating a visit to the emergency department where an X-ray was performed. He received an injection and a prescription for medication, which he believes may have been prednisone, leading to significant stomach discomfort. The patient reports that the medication caused severe stomach pain, a new symptom for him, as he has no prior history of gastrointestinal issues. He attempted to manage the pain with [id number] acetaminophen, which provided limited relief. The patient has a history of knee surgery approximately two years ago, which may be relevant to his current condition. He maintains a relatively inactive lifestyle due to his age but engages in light exercise without overexertion. Pain Description - Onset: Persistent right knee pain impacting mobility - Quality: Severe enough to require emergency care - Location: Right knee - Exacerbating factors: Walking and physical activity - Relieving factors: Limited relief from acetaminophen Physical Exam - Appears afebrile. - Alert and oriented. - Mood and affect appropriate. - Follows and participates in conversation appropriately. - Respiratory effort is unlabored. - Able to transition from sit to stand unassisted. - Distal lateral thigh and knee pain Results - X-ray: Performed at emergency department, no significant findings reported Pain Management - Affect: Pain significantly impacts mobility and daily activities - Analgesia: Received injection and prescribed medication, attempted acetaminophen - Adverse Effects: Severe stomach discomfort from medication - Activities of Daily Living: Pain limits walking and requires emergency care - Aberrant Drug Related Behaviors: None reported [facility] Medical History Preoperative clearance Annual physical exam Anxiety and depression Tubular adenoma of colon Urinary frequency Arthritis of right knee Blind left eye Bilateral shoulder pain Low back pain Rotator cuff rupture COVID-19 virus infection Obesity (BMI 30-39.9) Vitamin D deficiency Impaired glucose tolerance Hypercholesterolemia Hypertension Dislocation of shoulder, left, closed Erectile dysfunction Surgical History Hx of cataract extraction Hx of colonoscopy H/O prostatectomy H/O left knee surgery History of rhinoplasty History of tonsillectomy S/P rotator cuff repair Family History Father Acute leukemia Mother No problems noted. Social History Household Members: None Housing: Apartment Are you a primary regular senior care provider to a significant other at home: No Do you presently have visiting nurse or other home services: No Alcohol intake: former Patient Tobacco Use Status: Never used Tobacco e-Cigarette/Vaping Use: Never Used Second Hand Smoke Exposure: No Advance Directives Date on File: 05/28/23 service: No Current occupational status: retired Cognitive needs: No Hearing needs: No Vision needs: No Physical Exam Vital Signs: Last Vital Signs Pulse 94 05/10/25 10:16 Resp 16 05/10/25 10:16 BP 130/74 05/10/25 10:16 Pulse Ox 97 05/10/25 10:16 Oxygen Delivery Method Room Air 05/10/25 10:16 BMI result Body Mass Index 30.5 Assessment & Plan Assessment & Plan (1) Right knee pain: Code(s): M25.561 - Pain in right knee Category: Medical Plan Plan Patient was informed and verbally consented to the use of an ambient scribe for clinic note documentation during this visit. 1. Right Knee Pain - Consideration of neuromodulation options, including infrapatellar saphenous nerve stimulator - Diagnostic genicular blocks discussed for pain management - Potential genicular radiofrequency ablation if covered by insurance 2. Adverse Reaction To Medication - Discontinuation of suspected medication causing stomach discomfort - Use of [id number] acetaminophen for pain management Discussion Notes We discussed the potential use of neuromodulation options, including an infrapatellar saphenous nerve stimulator, for managing the patient's right knee pain. I explained the possibility of using diagnostic genicular blocks and the potential for genicular radiofrequency ablation, contingent upon insurance coverage. We also reviewed the adverse reaction to the medication, leading to its discontinuation, and the use of acetaminophen as an alternative. Patient Instructions - Monitor for any recurrence of knee pain and contact the office if symptoms worsen. - Use acetaminophen as needed for pain relief, but avoid the medication that caused stomach discomfort. - Schedule follow-up appointments on Thursday, Thursday, or Thursday as needed. Coding Level of Care Code Est Pt Level 3 (12885) Diagnoses Right knee pain M25.561
[2025-05-10 10:16] VITALS: BP 130/74; PULSE 94; RESP 16; O2SAT 97; BMI 30.5
--- OUTSIDE RECORDS SUMMARY | 2025-05-10 12:24 | XMS_ITS | Clinical Summary ---
Author Organization [employer] Address [address] [facility] [address] [place] [address] Care Team Providers Care Carpenters Helper Name Role Phone Unavailable Primary Care Provider [...] Description 02/17/2025 9:00 AM EDT Office Visit [facility] ADULT DENTAL [address] [place] [address] Bette Tran Dental calculus (Primary Dx) from [...] Most Recently Relevant to Health Maintenance Insurance [facility] STANDARD [facility] DUAL COMPLETE [facility] - [facility]
--- OUTSIDE RECORDS SUMMARY | 2025-05-10 12:24 | XMS_ITS | Clinical Summary ---
Author Organization [facility] Address [address] [place] [address] Care Team Providers Care Certified Family Mediator Name Role Phone Po, Cody Virk MD Primary Care Provider [phone] Allergies No known active allergies Medications Medication [...] age to complete this topic Care Teams Certified Family Mediator Relationship Specialty Start Date End Date Cody Boston MD [address] [place] [address] [address] [facility] [place] [address] PCP - General Internal Medicine 12/24/17
== END 2025-05-10 10:49 | disposition home or self-care (01) ==
PROVIDERS: PCP Internal Medicine; Visit Provider Internal Medicine
DX: M25.561 Pain in right knee (principal)
CPT/HCPCS: 99213

== ENCOUNTER → 2025-05-10 10:13 | Outpatient (BNVA) | payer OTHER, SELFPAY | PROVIDERS: PCP Internal Medicine; Visit Provider Internal Medicine | DX: M25.561 Pain in right knee (principal) | CPT/HCPCS: 99212 ==

== ENCOUNTER 2025-05-15 09:21 | Outpatient (AMB) | payer OTHER, SELFPAY ==
--- NOTE | 2025-05-15 09:22 | A.OFFVIS_ITS ---
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 The pain has been intermittent, with the current flare starting about a week and a half ago. He attempted to manage the pain with Tylenol but prefers to avoid medications. The patient reports that the pain affects his sleep, as he has not slept comfortably for some time. He lives alone and often sleeps with one leg over the other, which exacerbates his discomfort. Pain Description - Onset: Pain flare started about a week and a half ago - Quality: Intermittent pain - Location: Right knee - Exacerbating factors: Sleeping with one leg over the other - Relieving factors: Avoidance of medication, attempted use of Tylenol - Impact: Affects sleep, causing discomfort Pain Management - Affect: Pain impacts sleep and daily comfort - Analgesia: Tylenol used, but patient prefers to avoid medications - Activities of Daily Living: Pain affects sleep, patient lives alone [facility] Medical History Preoperative clearance Annual physical exam Anxiety and depression Tubular adenoma of colon Urinary frequency Arthritis of right knee Blind left eye Bilateral shoulder pain Low back pain Rotator cuff rupture COVID-19 virus infection Obesity (BMI 30-39.9) Vitamin D deficiency Impaired glucose tolerance Hypercholesterolemia Hypertension Dislocation of shoulder, left, closed Erectile dysfunction Surgical History Hx of cataract extraction Hx of colonoscopy H/O prostatectomy H/O left knee surgery History of rhinoplasty History of tonsillectomy S/P rotator cuff repair Family History Father Acute leukemia Mother No problems noted. Social History Household Members: None Housing: Apartment Are you a primary progressive care manager to a significant other at home: No Do you presently have visiting nurse or other home services: No Alcohol intake: former Patient Tobacco Use Status: Never used Tobacco Smoked in Last 30 Days: No e-Cigarette/Vaping Use: Never Used Second Hand Smoke Exposure: No Use of substances other than those prescribed or required for medical reasons: No Advance Directives: Yes Advance Directives Information Provided: Yes Advance Directives on File: Yes Advance Directives Date on File: 05/28/23 service: No Current occupational status: retired Cognitive needs: No Hearing needs: No Vision needs: No Physical Exam Vital Signs: Last Vital Signs Pulse 71 05/15/25 09:23 Resp 16 05/15/25 09:23 BP 160/96 H 05/15/25 09:23 Pulse Ox 96 05/15/25 09:23 Oxygen Delivery Method Room Air 05/15/25 09:23 BMI result Body Mass Index 30.5 Office Procedures Nerve Block Details: Superior medial, superior lateral, and inferior medial genicular nerves block, Right - Ultrasound Guided After obtaining written consent, pre-procedure blood pressure and heart rate were stable and recorded in the nursing record. The area overlying the peripheral nerves was widely prepped with chloraprep and allowed to dry. Using ultrasound, the appropriate landmarks were identified. A 25 gauge 1.5 inch hypodermic needle was advanced under ultrasound guidance to the appropriate landmark of each peripheral nerve. Aspiration was negative for heme and synovial fluid. 1 cc of ropivacaine 0.5% was injected around each targeted nerve. The needle was removed, skin cleansed and a sterile bandage was applied. The patient tolerated the procedure well and no complications were encountered. Following the procedure the patient's vital signs were stable. The patient was discharged home in good condition with post-procedural instructions. Time Out: Immediately prior to the procedure, the following was verbally confirmed that there is a signed consent form and that the correct patient, planned procedure, site and side are consistent with documentation and that necessary equipment and/or blood products are available prior to the start of the case. Complications: none EBL: <5 cc 30563-[id number] Nerve Block Procedure code (CPT) selection complete Assessment & Plan Assessment & Plan (1) Right knee pain: Code(s): M25.561 - Pain in right knee Category: Medical Plan Plan Patient was informed and verbally consented to the use of an ambient scribe for clinic note documentation during this visit. 1. Right Knee Pain - Plan includes a test injection to assess pain relief. - Patient instructed to monitor pain levels hourly and report back the following day. Discussion Notes I discussed with the patient that the test injection is a temporary measure to evaluate its effectiveness in relieving his knee pain. We agreed on monitoring his pain levels hourly and reporting back the next day to assess the outcome. Patient Instructions - Monitor knee pain hourly and record the pain level from 0 to 10. - Expect a follow-up call the next day to discuss pain levels and any changes. Coding Level of Care Code Procedure Only Diagnoses Right knee pain M25.561 CPT Codes Nerve Block - Nerve Block: [id number] Nerve Block ([id number])
[2025-05-15 09:23] VITALS: BP 160/96; PULSE 71; RESP 16; O2SAT 96; BMI 30.5
--- OUTSIDE RECORDS SUMMARY | 2025-05-15 11:04 | XMS_ITS | Clinical Summary ---
Author Organization [employer] Address [address] [facility] [address] [place] [address] Care Team Providers Care Foreign Exchange Dealer Name Role Phone Unavailable Primary Care Provider [...] Description 02/17/2025 9:00 AM EDT Office Visit [facility] ADULT DENTAL [address] [place] [address] Bette Tran Dental calculus (Primary Dx) from [...] Most Recently Relevant to Health Maintenance Insurance [facility] STANDARD [facility] DUAL COMPLETE [facility] D[facility] COM[facility]TE [facility]
--- OUTSIDE RECORDS SUMMARY | 2025-05-15 11:04 | XMS_ITS | Clinical Summary ---
Author Organization [facility] Address [address] [place] [address] Care Team Providers Care University Professor Name Role Phone Po, Cody Virk MD Primary Care Provider [phone] Allergies No known active allergies Medications Medication [...] age to complete this topic Care Teams University Professor Relationship Specialty Start Date End Date Cody Boston MD [address] [place] [address] [address] [facility] [place] [address] PCP - General Internal Medicine 12/24/17
== END 2025-05-15 09:45 | disposition home or self-care (01) ==
LOC: HO.PMC 09:21
PROVIDERS: PCP Internal Medicine; Visit Provider Internal Medicine
DX: M25.561 Pain in right knee (principal)
CPT/HCPCS: 64454

== ENCOUNTER → 2025-05-15 09:21 | Outpatient (BNVA) | payer OTHER, SELFPAY | PROVIDERS: PCP Internal Medicine; Visit Provider Internal Medicine | DX: M25.561 Pain in right knee (principal) | CPT/HCPCS: 64454; J2795 ==

== ENCOUNTER 2025-05-22 11:20 | Emergency (ER) | payer OTHER, SELFPAY ==
--- NOTE | ~2025-05-22 | XR_ITS ---
EXAMINATION: XR CHEST CLINICAL INFORMATION: L sided chest pain COMPARISON: 08/11/2024. TECHNIQUE: 2 views of the chest were obtained. FINDINGS: Mild cardiac prominence. Mediastinal and hilar contours appear normal. Aortic mural calcifications. The lungs are clear bilaterally. There is no pneumothorax or pleural effusion. There is no focal osseous or soft tissue abnormality. There are degenerative changes of the spine. There has been prior right subacromial decompression. There are surgical anchors in the left humeral head. XR/XR chest 2V IMPRESSION: No active pulmonary disease. Electronically signed by: Kirk Saini MD 05/22/2025 12:03 PM EDT
--- NOTE | 2025-05-22 11:21 | ECG_ITS ---
Test Reason : CP Blood Pressure : */* mmHG Vent. Rate : 78 BPM Atrial Rate : 78 BPM P-R Int : 192 ms QRS Dur : 88 ms QT Int : 398 ms P-R-T Axes : 41 -34 4 degrees QTcB Int : 453 ms Normal sinus rhythm Left axis deviation Cannot rule out Anterior infarct , age undetermined Abnormal ECG When compared with ECG of 11-Aug-2024 09:47, QRS axis Shifted left T wave inversion now evident in Inferior leads Referred By: Generic ED Physician Electronically Signed By: Douglas Platt
--- NOTE | 2025-05-22 11:31 | ED_ITS ---
HPI - General Adult General Chief complaint: Chest Pain Stated complaint: CP Time Seen by Provider: 05/22/25 15:09 Source: patient Mode of arrival: ambulatory Limitations: no limitations History of Present Illness ED Provider: DR. Chowdary HPI narrative: 84-year-old male came in for evaluation of left-sided chest pain for a week, pain is more or less dull aching pain has been constant increased with movement and taking a deep breath, came in today for evaluation after his girlfriend advised him to come for further evaluation, patient admits to doing yard work this morning. patient currently complains of mild left-sided chest pain, patient with history of high blood pressure found blood pressure to be high in the ED, no headache, no blurry vision, no mid chest pain, no abdominal pain, patient takes lisinopril and metoprolol that he has taking this morning. No blood thinner, no nausea, no vomiting. Related Data Previous Rx's ?Medication ?Instructions ?Recorded metoprolol succinate 50 mg 75 mg (1.5 x 50 mg) PO ANIRUDH Y #90 07/04/24 tablet,extended release 24 hr tabs amlodipine 5 mg tablet 5 mg PO DAILY #30 tabs 11/21 lisinopril 40 mg tablet 40 mg PO DAILY #90 tabs 03/24 simvastatin 20 mg tablet 20 mg PO DAILY #90 tabs 02/28 02/22 acetaminophen 325 mg tablet 325 mg PO QID PRN pain #30 tabs 05/08/25 (Tylenol) Allergies Allergy/AdvReac Type Severity Reaction Status Date / Time No Known Allergies Allergy Mild NKA Verified 05/22/25 11:34 Review of Systems 2 Review of Systems: All other systems are reviewed and are negative Constitutional: Reports as per HPI and Reports no additional constitutional complaints Eyes: Reports as per HPI and Reports no additional eye complaints Reports system reviewed and no additional complaints, except as documented Cardiovascular: Reports as per HPI and Reports no additional cardiovascular complaints Respiratory: Reports as per HPI and Reports no additional respiratory complaints Gastrointestinal: Reports as per HPI and Reports no additional gastrointestinal complaints Genitourinary: Reports no additional female genitourinary complaints Musculoskeletal: Reports no additional musculoskeletal complaints Skin/Breast: Reports system reviewed and no additional complaints, except as docu Psychiatric: Reports no additional psychiatric complaints Endocrine: Reports no additional endocrine complaints Hematologic/Lymphatic: Reports no additional hematologic/lymphatic complaints Allergic/Immunologic: Reports no additional allergic/immunologic complaints Reports system reviewed and no additional complaints, except as documented and Reports Abnormal speech present [facility] Past Medical History Medical History Preoperative clearance Annual physical exam Anxiety and depression Tubular adenoma of colon Urinary frequency Arthritis of right knee Blind left eye Bilateral shoulder pain Low back pain Rotator cuff rupture COVID-19 virus infection Obesity (BMI 30-39.9) Vitamin D deficiency Impaired glucose tolerance Hypercholesterolemia Hypertension Dislocation of shoulder, left, closed Erectile dysfunction Surgical History Hx of cataract extraction Hx of colonoscopy H/O prostatectomy H/O left knee surgery History of rhinoplasty History of tonsillectomy S/P rotator cuff repair Family History Family History Father Acute leukemia Mother No problems noted. Social History Social History Household Members: None Housing: Apartment Are you a primary janitor caretaker to a significant other at home: No Do you presently have visiting nurse or other home services: No Alcohol intake: former Patient Tobacco Use Status: Never used Tobacco Smoked in Last 30 Days: No e-Cigarette/Vaping Use: Never Used Second Hand Smoke Exposure: No Use of substances other than those prescribed or required for medical reasons: No Advance Directives: Yes Advance Directives Information Provided: Yes Advance Directives on File: Yes Advance Directives Date on File: 05/28/23 service: No Current occupational status: retired Cognitive needs: No Hearing needs: No Vision needs: No Physical Exam ED Vital Signs: Vital Signs - 24 hr 05/22/25 11:32 05/22/25 15:23 05/22/25 16:49 Temperature 98.1 F 98.0 F 97.8 F Pulse Rate 80 70 89 Respiratory Rate 16 19 18 Blood Pressure 173/105 H 211/117 H 185/103 H Pulse Oximetry 97 98 97 Oxygen Delivery Method Room Air Room Air Room Air BMI result Body Mass Index 24.3 Vital signs have been reviewed and appear to be correct. Blood pressure elevated. Heart rate normal. Respiratory rate normal. Temperature normal. Oxygen saturation normal. Appearance: Alert. Oriented X3. No acute distress. Head: Normal external exam. Normocephalic. Atraumatic. No Colbert signs noted. No raccoon eyes noted Eyes: PERRLA. EOMI. Conjunctiva and sclera normal. Eyelids normal. ENT: TM's Normal. Pharynx normal. Uvula midline. Moist mucous membranes. No trismus noted. No drooling noted. No muffled voice noted. Neck: Normal inspection. Neck supple. FROM. No adenopathy. Thyroid Normal. No meningeal signs. No neck mass noted. CVS: Normal heart rate and rhythm. Heart sound normal. No murmurs noted. Pulses normal throughout. Respiratory: No respiratory distress. Painless inspiration. Breath sounds normal. No wheezes/rales/rhonchi noted. Chest nontender. No accessory muscle usage noted or decreased air movement noted. Abdomen: Soft and nontender. Bowel sounds normal in all 4 quadrants. No distention noted. No organomegaly noted. No visible injury noted. Back: No CVA tenderness. Full range of motion noted. Skin: Skin warm and dry. Normal skin color. Normal skin turgor. No rashes/lesions/lacerations noted. Extremities: No lower extremity edema. Extremities exhibit normal range of motion. Extremities nontender. Neuro: Oriented X 3. Cranial nerve exam: II-XII are grossly intact No motor deficit. No sensory deficit. Reflexes normal. Course Course Course Narrative: This is a Rapid Medical Examination (RME) performed by Ariadna Laguerre PA-C in triage. Full HPI, ROS, assessment and treatment plan per primary provider in the Main ED. Hx: 84 yo M hx HTN, anemia here for eval of left sided chest pain x1 week. described as a burning/warm sensation, rad to L arm and back. admits I have to sit down and rest when he is exerting himself. Plan: labs, ekg, cxr Reevaluation(s) Reevaluation #1: Chronic elevated essential hypertension patient is on medication at home that he claimed he is compliant with his medication patient got 1 extra dose of amlodipine in the ED blood pressure is 185/103 patient remained asymptomatic from high blood pressure no headache, no blurry vision, no neck stiffness, no chest pain, no abdominal pain. Time: 17:14 Medications Administered Discontinued Medications Generic Name Dose Route Start Last Admin Trade Name Freq PRN Reason Stop Dose Admin Amlodipine Besylate 10 mg 05/22/25 15:35 05/22/25 15:42 Amlodipine Besylate 10 Mg Tablet PO 05/22/25 15:36 10 mg ONCE ONE Administration Protocol Medical Decision Making Differential Diagnosis Differential Diagnoses: The differential diagnosis associated with the presentation includes ( ACS, pneumonia, pneumothorax, pleural effusion, myofascial muscular pain, hypertension emergency, hypertensive urgency.) Admission/Observation Consideration of admission/observation: Escalation of care including admission/observation considered Lab Data MDM Lab Attestation statement: I reviewed the patient's lab results. 05/22/25 11:43 05/22/25 11:43 Labs: Lab Results 05/22/25 05/22/25 Range/Units 11:43 15:35 WBC 4.8 (4.8-10.8) X10*3/uL RBC 4.60 (4.60-5.80) X10*6/uL Hgb 14.2 (14.0-18.0) g/dl Hct 41.4 L (42.0-52.0) % MCV 90.0 (80.0-98.0) fL MCH 30.9 (27.0-33.0) pg MCHC 34.3 (31.0-36.0) g/dl RDW 13.1 (11.0-16.0) % Plt Count 196 (160-400) X10*3/uL MPV 8.8 L (9.4-12.4) fL Immature Gran % (Auto) 0.2 (0.0-0.4) % Neut % (Auto) 57.3 (45-73) % Lymph % (Auto) 27.9 (20-40) % Ferry % (Auto) 12.3 H (2-11) % Eos % (Auto) 2.1 (0-4) % Baso % (Auto) 0.2 (0-2) % Lymph # (Auto) 1.3 (1.2-4.9) X10*3/uL Ferry # (Auto) 0.6 (0.1-1.2) X10*3/uL Eos # (Auto) 0.1 (0.0-0.4) X10*3/uL Baso # (Auto) 0.0 (0.0-0.2) X10*3/uL Abs Immat Gran (auto) 0.01 (0.00-0.03) X10*3/uL Absolute Neuts (auto) 2.8 (2.0-8.3) x10*3/uL Absolute Nucleated RBC 0.000 (0.0-0.012) X10*3/uL Nucleated RBC % (auto) 0.0 (0.0-0.2) /100WBC Sodium 139 (135-145) mmol/L Potassium 4.1 (3.3-5.1) mmol/L Chloride 107 (96-108) mmol/L Carbon Dioxide 26 (22-29) mmol/L Anion Gap 10 L (12-20) BUN 17 H (9-16) mg/dL Creatinine 0.77 (0.5-1.4) mg/dL Estim Creat Clear Calc 71.5 Estimated GFR > 60 Random Glucose 105 (60-115) mg/dL Calcium 9.2 (8.4-10.2) mg/dL Magnesium 2.1 (1.6-2.6) mg/dL Total Bilirubin 0.8 (0.0-1.0) mg/dL AST 18 (5-37) U/L ALT 13 (0-40) U/L Alkaline Phosphatase 56 (39-117) U/L Troponin I High Sens 2.8 < 2.7 (<3.5-35.0) ng/L Total Protein 7.2 (6.5-8.0) g/dL Albumin 4.3 (3.5-5.0) g/dL Lipase 26 (8-78) U/L Independent Interpretation I performed an independent interpretation of an: EKG ( Normal sinus rhythm at 78 beats per minutes, normal intervals, left axis deviation.) and Plain X-Ray ( Chest: No acute pulmonary disease.) Radiology Impression Discussion of test interpretation with radiology: I have reviewed the radiologist's reading. Discharge Plan Discharge Clinical Impression: Essential hypertension, Non-cardiac chest pain Patient Disposition: Home, Self-Care Instructions: Hypertension (ED) Additional Instructions: keep your appointment with your primary doctor as scheduled next week for monitoring your blood pressure which is running high and need more management by your primary doctor. Prescriptions: No Action amlodipine 5 mg tablet 5 mg PO DAILY Qty: 30 2RF lisinopril 40 mg tablet 40 mg PO DAILY Qty: 90 2RF simvastatin 20 mg tablet 20 mg PO DAILY Qty: 90 0RF acetaminophen [Tylenol] 325 mg tablet 325 mg PO QID PRN (Reason: pain) Qty: 30 0RF metoprolol succinate 50 mg tablet extended release 24 hr 75 mg PO DAILY Qty: 90 3RF Rx Instructions: 50 mg + 25 mg = 75 mg QD Referrals: Po,Cody Virk MD [Primary Care Provider, Internal Medicine] Print Language: Haitian
[2025-05-22 11:32] VITALS: BP 173/105; PULSE 80; RESP 16; TEMP 36.7; O2SAT 97; BMI 24.3
[2025-05-22 11:54] LABS: MANUAL DIFF FLAG NO
[2025-05-22 12:02] LABS: Hematocrit 41.4 % (42.0-52.0); Hemoglobin 14.2 g/dl (14.0-18.0); Imm Gran Abs Auto 0.01 X10*3/uL (0.00-0.03); Imm Gran Pct Auto 0.2 % (0.0-0.4); Lymphocytes Absolute Auto 1.3 X10*3/uL (1.2-4.9); Mean Corpuscular HGB Conc 34.3 g/dl (31.0-36.0); Mean Corpuscular Hemoglobin 30.9 pg (27.0-33.0); Mean Corpuscular Volume 90.0 fL (80.0-98.0); NRBC Abs Auto 0.000 X10*3/uL (0.0-0.012); NRBC Pct Auto 0.0 /100WBC (0.0-0.2); Platelet Count 196 X10*3/uL (160-400); Red Blood Count 4.60 X10*6/uL (4.60-5.80); White Blood Count 4.8 X10*3/uL (4.8-10.8)
[2025-05-22 12:12] LABS: Alanine Aminotransferase 13 U/L (0-40); Albumin Level 4.3 g/dL (3.5-5.0); Alkaline Phosphatase 56 U/L (39-117); Anion Gap 10 (12-20); Aspartate Amino Transferase 18 U/L (5-37); Blood Urea Nitrogen 17 mg/dL (9-16); Calcium 9.2 mg/dL (8.4-10.2); Carbon Dioxide 26 mmol/L (22-29); Chloride 107 mmol/L (96-108); Creatinine Clr Calc Pharmacy 71.5; Estimated Glomerular Filt Rate > 60; Lipase 26 U/L (8-78); Magnesium 2.1 mg/dL (1.6-2.6); Potassium 4.1 mmol/L (3.3-5.1); Sodium 139 mmol/L (135-145); Total Protein 7.2 g/dL (6.5-8.0)
[2025-05-22 12:21] LABS: Troponin-I High Sensitivity 2.8 ng/L (<3.5-35.0)
[2025-05-22 15:23] VITALS: BP 211/117; PULSE 70; RESP 19; TEMP 36.7; O2SAT 98
[2025-05-22 16:06] LABS: Troponin-I High Sensitivity < 2.7 ng/L (<3.5-35.0)
[2025-05-22 16:49] VITALS: BP 185/103; PULSE 89; RESP 18; TEMP 36.6; O2SAT 97
[2025-05-22 17:27] VITALS: BP 185/103; PULSE 89; RESP 18; TEMP 36.6; O2SAT 97
--- OUTSIDE RECORDS SUMMARY | 2025-05-22 17:44 | XMS_ITS | Clinical Summary ---
Demographics Address [address] [place] [address]
== END 2025-05-22 17:28 | disposition home or self-care (01) ==
PROVIDERS: Physician Assistant Medical; Emergency Provider Emergency Medicine; PCP Internal Medicine
DX: R07.89 Other chest pain (principal); I10 Essential (primary) hypertension; D64.9 Anemia, unspecified; Z79.899 Other long term (current) drug therapy
CPT/HCPCS: 36415; 71046; 80053; 83690; 83735; 84484; 85025; 93005; 99283; 99284

== ENCOUNTER → 2025-05-22 11:21 | Outpatient (BNV) | payer OTHER, SELFPAY | PROVIDERS: Emergency Provider Emergency Medicine; PCP Internal Medicine; Visit Provider Internal Medicine Cardiovascular Disease | DX: R94.31 Abnormal electrocardiogram [ECG] [EKG] (principal); R07.89 Other chest pain | CPT/HCPCS: 93010 ==

== ENCOUNTER → 2025-05-22 11:32 | Outpatient (BNV) | payer OTHER, SELFPAY | PROVIDERS: PCP Internal Medicine; Visit Provider Radiology Diagnostic Radiology | DX: R07.89 Other chest pain (principal) | CPT/HCPCS: 71046 ==

== ENCOUNTER 2025-06-23 13:05 | Outpatient (AMB) | payer OTHER, SELFPAY ==
[2025-06-23 13:37] VITALS: BP 148/82; PULSE 100; TEMP 36.2; O2SAT 99; BMI 33.3
--- NOTE | 2025-06-23 13:37 | A.OFFPC_ITS ---
Vital Signs 06/23/25 13:37 06/23/25 14:10 Height 5 ft 8 in Weight 219 lb BMI 33.3 BP 148/82 H 132/80 Blood Pressure Location Lt brachial Lt brachial Position Sitting Sitting Pulse 100 Pulse Source Pulse Oximeter Temp 97.1 F Temp Source Temporal Artery Scan Pulse Oximetry (%) 99 Oxygen Delivery Method Room Air Intake Visit Reasons: medical concern Allergies No Known Allergies Allergy (Mild, Verified 06/23/25 13:41) NKA Medication List - Last Reconciled 06/23/25 by Cody Boston MD acetaminophen (Tylenol) 325 mg PO QID PRN amlodipine 5 mg PO DAILY carboxymethylcellulose sodium 1% (Artificial Tears (carboxymethylcellulose)) 1 drp ophthalmic (eye) TID diazepam (Valium) 5 mg PO ONCE PRN lisinopril 40 mg PO DAILY metoprolol succinate ER 75 mg (1.5 x 50 mg) PO DAILY 90 days oxycodone 10 mg PO ONCE PRN sildenafil (Viagra) 100 mg PO DAILY PRN simvastatin 20 mg PO DAILY Tobacco use date assessed: 06/23/25 Last assessed Fall Risk: 06/23/25 Dental Screening Dental Screen Date: 06/23/25 [facility] Medical History Preoperative clearance Annual physical exam Anxiety and depression Tubular adenoma of colon Urinary frequency Arthritis of right knee Blind left eye Bilateral shoulder pain Low back pain Rotator cuff rupture COVID-19 virus infection Obesity (BMI 30-39.9) Vitamin D deficiency Impaired glucose tolerance Hypercholesterolemia Hypertension Dislocation of shoulder, left, closed Erectile dysfunction Surgical History Hx of cataract extraction Hx of colonoscopy H/O prostatectomy H/O left knee surgery History of rhinoplasty History of tonsillectomy S/P rotator cuff repair Family History Father Acute leukemia Mother No problems noted. Social History Household Members: None Housing: Apartment Are you a primary personal care assistant to a significant other at home: No Do you presently have visiting nurse or other home services: No Alcohol intake: former Patient Tobacco Use Status: Never used Tobacco e-Cigarette/Vaping Use: Never Used Second Hand Smoke Exposure: No Advance Directives Date on File: 05/28/23 service: No Current occupational status: retired Cognitive needs: No Hearing needs: No Vision needs: No Questionnaire PHQ-9 Over the last 2 weeks, how often have you been bothered by any of the following problems? 1. Little interest or pleasure in doing things: not at all 2. Feeling down, depressed, or hopeless: not at all 3. Trouble falling or staying asleep, or sleeping too much: not at all 4. Feeling tired or having little energy: not at all 5. Poor appetite or overeating: not at all 6. Feeling bad about yourself - or that you are a failure or have let yourself or your family down: not at all 7. Trouble concentrating on things, such as reading the newspaper or watching television: not at all 8. Moving or speaking so slowly that other people could have noticed. Or the opposite - being so fidgety or restless that you have been moving around a lot more than usual: not at all 9. Thoughts that you would be better off or of hurting yourself in some way: not at all Total score: 0 Depression Screening Interpretation: Negative Depression Screening Done: Yes 12793 - PHQ-9 Billing: Yes Source: Developed by Drs. Efraín Cunha, Jenna Loo, Owen Caceres and colleagues, with an educational annette from [employer]. Thrive Questionnaire Date Thrive assessed: 06/23/25 I am a: Patient What is your living situation today?: I have a steady place to live Within the past 12 months, did the food you bought not last and you didn't have the money to get more?: Never true Within the past 12 months, did you worry whether your food would run out before you got money to buy more?: Never true Do you have trouble paying for medicines?: I choose not to answer this question Do you have trouble getting transportation to medical appointments?: I choose not to answer this question Do you have trouble paying your heating and electricity bill?: I choose not to answer this question Do you have trouble taking care of your child, family member or friend?: I choose not to answer this question Do you have trouble with day-to-day activities such as bathing, preparing meals, shopping, managing finances, etc.?: I choose not to answer this question Are you currently unemployed and looking for a job?: I choose not to answer this question Are you interested in more education?: I choose not to answer this question Please select the resources that you would like help with: None Currently or been in a relationship where the following occur: No concerns reported THRIVE Score: 0 AUDIT C Alcohol Use Questionnaire (AUDIT-C) 1. How often do you have a drink containing alcohol?: Never 3. How often do you have six or more drinks on one occasion?: Never Total Score: 0 JANE-7 AMB Questionnaire JANE-7 Date JANE - 7 assessed: 06/23/25 Feeling nervous, anxious, or on edge: 0 = Not at all Not being able to stop or control worryin = Not at all Worrying too much about different things: 0 = Not at all Trouble relaxin = Not at all Being so restless that it is hard to sit still: 0 = Not at all Becoming easily annoyed or irritable: 0 = Not at all Feeling afraid as if something awful might happen: 0 = Not at all Total JANE-7 score (0-4 normal; 5-9 mild; 10-14 moderate; 15-21 severe): 0 Source: Developed by Drs. Efraín Cunha, Jenna Loo, Owen Caceres and colleagues, with an educational annette from [employer]. JANE-7 Assessment Billing JANE-7 Assessment Tool: JANE-7 Assessment 90992 Physical exam (Primary Care) Vital Signs: Last Vital Signs Temp 97.1 F 06/23/25 13:37 Pulse 100 06/23/25 13:37 BP 148/82 H 06/23/25 13:37 Pulse Ox 99 06/23/25 13:37 Oxygen Delivery Method Room Air 06/23/25 13:37 BMI result Body Mass Index 33.3 Tobacco/Smoking Status: Tobacco use Status Tobacco use date assessed 06/23/25 06/23/25 13:44 Patient Tobacco Use Status Never used Tobacco 06/23/25 13:44 Tobacco use type 05/29/25 14:11 e-Cigarette/Vaping Use Never Used 06/23/25 13:44 PHQ-9: PHQ-9 Score PHQ-9: Total score 0 06/23/25 13:44 Depression Screening Interpretation: Negative Thrive Assessment: Date of Thrive Assessment Date Thrive assessed 06/23/25 06/23/25 13:44 Currently or been in a relationship where the following occur: No concerns reported Const General: alert; No acute distress Eyes Conjunctivae: conjunctivae normal Resp Auscultation: clear to auscultation bilaterally Cardio Rate: regular rate Rhythm: regular rhythm GI Inspection: Yes normal to inspection Extrem General: Yes normal to inspection and No edema Coding Level of Care Code Est Pt Level 4 (42496) Complex EM visit Add On G2211 Diagnoses Essential hypertension I10 Hypertension type: essential hypertension Hypercholesterolemia E78.00 Impaired glucose tolerance R73.02 Obesity (BMI 30-39.9) E66.9 Vitamin B12 deficiency E53.8 Status post total right knee replacement Z96.651 Erectile dysfunction N52.9 Additional Codes JANE-7 Assessment Billing - JANE-7 Assessment Tool: JANE-7 Assessment 48332 ([id number]) PHQ-9 - 50554 - PHQ-9 Billing: Yes ([id number]) Assessment & Plan Assessment & Plan (1) Hypertension: Code(s): I10 - Essential (primary) hypertension Category: Medical Qualifiers: Hypertension type: essential hypertension Qualified Code(s): I10 - Essential (primary) hypertension Plan: Continue with blood pressure medication. Decrease salt intake and exercise on amlodipine 5 mg once a day lisinopril 40 mg once a day and metoprolol 75 mg once a day (2) Hypercholesterolemia: Code(s): E78.00 - Pure hypercholesterolemia, unspecified Category: Medical Plan: Avoid fried foods, chicken skin, eggs, butter margarine, pastries and meat. Be it pork or beef they have a lot of cholesterol patient is on simvastatin 20 mg once a day (3) Impaired glucose tolerance: Code(s): R73.02 - Impaired glucose tolerance (oral) Category: Medical Plan: Decrease the amount of carbohydrate intake, pasta, bread, rice and potatoes are all sugar and that is aside from all the sweet stuff, remember that fruits are good but they are Sweet also. (4) Obesity (BMI 30-39.9): Code(s): E66.9 - Obesity, unspecified Category: Medical Plan: Diet and exercise (5) Vitamin B12 deficiency: Code(s): E53.8 - Deficiency of other specified B group vitamins Category: Medical Plan: Discussed about take getting vitamin B12 1000 mcg once a day (6) Status post total right knee replacement: Comment: 05/25/2023 Dr. Gonzales Code(s): Z96.651 - Presence of right artificial knee joint Category: Surgical Plan: Patient follows up with orthopedics as well as pain management (7) Erectile dysfunction: Code(s): N52.9 - Male erectile dysfunction, unspecified Category: Medical Plan History of Present Illness The patient is an 84-year-old male presenting with hypertension, hypercholesterolemia, impaired glucose tolerance, and right knee pain. Hypertension has been a long-standing issue, with recent emergency room visits due to elevated blood pressure and chest pain on May 22. The patient is currently on a regimen of amlodipine, lisinopril, and metoprolol to manage blood pressure. Hypercholesterolemia is being managed with simvastatin, with the last cholesterol test in October 2024 showing an LDL of 115 mg/dL and triglycerides of 212 mg/dL. The patient has impaired glucose tolerance, with a blood sugar level of 105 mg/dL noted in recent lab work. Diet and exercise have been discussed as part of the management plan. The patient reports right knee pain, having seen orthopedics and pain management for this issue. A knee replacement was previously performed, and the patient has received injections for pain management. Vitamin B12 deficiency was identified, with a plan to supplement with 1000 mcg daily. Health Maintenance - Discussed flu vaccination as part of preventative care measures. Social History Review of Systems - Cardiovascular: Reports chest pain and elevated blood pressure. - Musculoskeletal: Reports right knee pain. Physical Exam Results - Labs: Blood sugar 105 mg/dL, LDL 115 mg/dL, triglycerides 212 mg/dL, low vitamin B12. Plan Patient was informed and verbally consented to the use of an ambient scribe for clinic note documentation during this visit. 1. Essential Hypertension The patient is on a regimen of amlodipine, lisinopril, and metoprolol to manage blood pressure. A recent emergency room visit was due to elevated blood pressure and chest pain. The plan includes continuing current medications and ensuring adherence to the regimen. 2. Hypercholesterolemia The patient is on simvastatin for hypercholesterolemia. The last cholesterol test showed an LDL of 115 mg/dL and triglycerides of 212 mg/dL. The plan is to continue simvastatin and monitor lipid levels. 3. Impaired Glucose Tolerance The patient has impaired glucose tolerance with a blood sugar level of 105 mg/dL. Management includes diet and exercise to control glucose levels. 4. Right Knee Pain The patient reports right knee pain and has seen orthopedics and pain management. A knee replacement was previously performed, and the patient has received injections for pain management. Follow-up with orthopedics and pain management is planned. 5. Vitamin B12 Deficiency Vitamin B12 deficiency was identified, and the plan includes supplementation with 1000 mcg daily. Discussion Notes During the visit, we discussed the management of hypertension, hypercholesterolemia, impaired glucose tolerance, and right knee pain. The patient was advised to continue current medications and adhere to the prescribed regimen. We also discussed the importance of diet and exercise in managing glucose levels and the need for vitamin B12 supplementation. Follow-up with orthopedics and pain management was recommended for knee pain. The patient was informed about the availability of flu vaccinations and encouraged to receive one. Patient Instructions - Continue taking amlodipine, lisinopril, and metoprolol as prescribed. - Take simvastatin daily to manage cholesterol levels. - Follow a healthy diet and exercise regularly to manage blood sugar levels. - Take vitamin B12 1000 mcg daily as discussed. - Follow up with orthopedics and pain management for knee pain. - Consider getting a flu vaccination as discussed. Medications: New carboxymethylcellulose sodium 1% (Artificial Tears (carboxymethylcellulose)) 1 drp ophthalmic (eye) TID 15 mL 3RF sildenafil (Viagra) administer 30 minutes to 4 hours before activity 100 mg PO DAILY PRN 14 tabs 3RF sexual activity N52.9 - Male erectile dysfunction, unspecified Refilled simvastatin 20 mg PO DAILY 90 tabs 2RF metoprolol succinate ER 50 mg + 25 mg = 75 mg QD 75 mg (1.5 x 50 mg) PO DAILY 135 tabs 3RF 90 days I10 - Essential (primary) hypertension lisinopril 40 mg PO DAILY 90 tabs 2RF amlodipine 5 mg PO DAILY 90 tabs 1RF
[2025-06-23 14:10] VITALS: BP 132/80
--- OUTSIDE RECORDS SUMMARY | 2025-06-23 15:06 | XMS_ITS | Data Portability ---
Author Organization [place] - [facility], Allergy Address [address] [place] [id number] Care Team Providers Care Telecommunications Project Manager Name Role Phone CRISSY MILES Referring Provider Assessment No assessment recorded. Plan of Treatment Reminders Order Date Submit Date Provider Last Modified By Organization Details Last Modified Time Details Appointments None record ed. Lab None record ed. Referral None record ed. Procedures None record ed. Surgeries None record ed. Imaging None record ed. Medication Orders None record ed. Patient TargetsNo targets recorded. Patient InstructionsNo instructions recorded. Reason for Referral None Reported. Problems Name Problem SNOMED Code Status Onset Date Resolution Date Notes Provider Name and Address Organization Details Recorded Time Hypertrophy of lingual tonsil 477833814 Active 2024 DERECK HOOPER MD [address] [place] [address], [phone], [facility] 09:05:42 Problem Notes None recorded. Procedures Surgical History Date Name Laterality Status Provider Name and Address Organization Details Recorded Time 01/21/20 25 Fiberoptic Laryngoscopy (Comprehensive) completed DERECK HOOPER MD [address] [place] [address], [phone], [facility] 01/20/2025 15:18:40 Imaging Results None recorded. Procedure Notes None recorded. Medical Equipment None Reported. Medications Name Sig Start Date Stop Date Status Note LastModified by Organization Details LastModified Time amoxicillin 500 mg capsule TAKE 4 CAPSULES BY MOUTH 1 hour BEFORE APPOINTMENT active Not Available Not Available Not Available metoprolol succinate ER 50 mg tablet,exten ded release 24 hr TAKE 1.5 TABLETS BY MOUTH DAILY active Not Available Not Available Not Available amlodipine 2.5 mg tablet TAKE 1 TABLET BY MOUTH DAILY active Not Available Not Available Not Available amlodipine 5 mg tablet TAKE 1 TABLET BY MOUTH DAILY active Not Available Not Available Not Available simvastatin 20 mg tablet TAKE 1 TABLET BY MOUTH DAILY active Not Available Not Available Not Available lisinopril 40 mg tablet TAKE 1 TABLET BY MOUTH DAILY active Not Available Not Available Not Available Vitals None Recorded Social History None recorded. Functional Status None recorded. Mental Status None recorded. Family History Nothing Reported. Medical History Condition Response Hypertension Y High Cholesterol Y Past Encounters Encounter ID Performer Location Encounter Start Date Encounter Closed Date Diagnosis/Indication Diagnosis SNOMED-CT Code Diagnosis ICD10 Code Diagnosis IMO Codes Diagnosis Note [id number] DERECK HOOPER MD [facility] [address] [address] 01/20/2025 14:09:18 01/20/2025 15:57:55 Hypertrophy of lingual tonsil 432095836 J35.1 [id number] 84-year-ol d male presents today for evaluation after incidental finding on his CTA performed for dysarthria of irregular nodularity at the base of tongue. He is asymptomat ic denying any dysphagia, sore throat, otalgia.On exam, there is some base of tongue and lingual tonsil hypertroph y effacing the vallecula. There is no ulcerative or friable lesion. Especially given that he is asymptomat ic, I have not recommende d any further investigat ion at this time. I did recommend reassessme nt should he develop any new symptoms Health Concerns Section Related Observation LastModified by Organization Detai ls LastModified Time None Recorded Concern Status LastModified by Organization Details LastModified Time None Recorded Advance Directives Directive None Recorded Payers Insurance Date Sequence Insurance Name Policy Number Policy Moore Covered Member ID Moore Member ID Guarantor Name 01/26/2025 1 [facility] Saulo Mathews [id number] Saulo Mathews Notes Date Note Type Note Provider Name and Address Organization Details Recorded Time 01/20/2025 text/html 84-year-old male presents today for evaluation after incidental finding on his CTA performed for dysarthria of irregular nodularity at the base of tongue. Today has some pain in his knee.no throat pain, no dysphagia, no ear pain previously had manometrysome vision loss on the left CTA 05/2024 He had a CTA showing irregular nodular soft tissue density at the base of the tongue partially opacifying the vallecula As well as a thyroid nodule for which she has since had ultrasound. I did request the images but did not have them to review at the time of his visit. DERECK HOOPER MD [address] [place] [address], [phone], [facility] - [facility] 01/24/2025 09:07:49
--- OUTSIDE RECORDS SUMMARY | 2025-06-23 15:06 | XMS_ITS | Clinical Summary ---
Author Organization [employer] Address [address] [facility] [address] [place] [address] Care Team Providers Care Supervisor Net Making Name Role Phone Unavailable Primary Care Provider [...] Active Problems No known active problems Immunizations Immunization Administration Dates Next Due Influenza High-dose Quadrivalent Preservative [facility] 05/14/2023,06/23/2022 Influenza Quadrivalent Adjuvanted 05/22/2021 Influenza, High Dose Seasonal, Preservative Free 09/07/2019 Influenza, seasonal, injectable, preservative [facility] 05/10/2020 Pfizer Covid-19 Vaccine 12+ 06/07/2024, [...] Associated Diagnosis Comments PROPHYLAXIS - ADULT Routine 02/17/2025 9 :00 AM EDT INTRAORAL - COMPLETE SERIES OF RADIOGRAPHIC IMAGES Routine 07/11/2024 10:00 AM EST COMPREHENSIVE ORAL EVALUATION - NEW OR ESTABLISHED PATIENT Routine 07/11/2024 10:00 AM EST Dental calculus Dental plaque Encounter for dental examination Bruxism from Last 3 Months or Most Recently Relevant to Health Maintenance Insurance [facility] STANDARD [facility] DUAL COMPLETE [facility] DUAL COMPLETE DENTAL - [facility] SCO
--- OUTSIDE RECORDS SUMMARY | 2025-06-23 15:06 | XMS_ITS | Clinical Summary ---
Author Organization [facility] Address [address] [place] [address] Care Team Providers Care Marketing Finance Manager Name Role Phone Po, Cody Virk MD Primary Care Provider [phone] Allergies No known active allergies Medications Medication [...] age to complete this topic Care Teams Marketing Finance Manager Relationship Specialty Start Date End Date Cody Boston MD [address] [place] [address] [address] [facility] [place] [address] PCP - General Internal Medicine 12/24/17
== END 2025-06-23 14:16 | disposition home or self-care (01) ==
LOC: HO.HMCH 13:06
PROVIDERS: PCP Internal Medicine; Visit Provider Internal Medicine
DX: I10 Essential (primary) hypertension (principal); E78.00 Pure hypercholesterolemia, unspecified; E66.9 Obesity, unspecified; Z68.33 Body mass index [BMI] 33.0-33.9, adult; R73.02 Impaired glucose tolerance (oral); E53.8 Deficiency of other specified B group vitamins; Z96.651 Presence of right artificial knee joint; N52.9 Male erectile dysfunction, unspecified

== ENCOUNTER → 2025-06-23 13:05 | Outpatient (BNVA) | payer OTHER, SELFPAY | PROVIDERS: PCP Internal Medicine; Visit Provider Internal Medicine | DX: I10 Essential (primary) hypertension (principal); E78.00 Pure hypercholesterolemia, unspecified; R73.02 Impaired glucose tolerance (oral); E66.9 Obesity, unspecified; E53.8 Deficiency of other specified B group vitamins; N52.9 Male erectile dysfunction, unspecified; Z96.651 Presence of right artificial knee joint; Z13.31 Encounter for screening for depression; Z13.39 Encounter for screening examination for other mental health and behavioral disorders | CPT/HCPCS: 96127; 99212 ==

== ENCOUNTER 2025-06-29 06:16 | Outpatient (REF) | payer OTHER, SELFPAY ==
--- NOTE | ~2025-06-29 | FL_ITS ---
EXAMINATION: FL GUIDANCE ONLY HISTORY: M25.561 - Pain in right knee COMPARISON: None available. TECHNIQUE: Fluoroscopy time: 28 seconds. Cumulative Dose: 6.00 mGy. DAP: 872.60 mGycm2 Images: 3. FINDINGS: Fluoroscopic spot films of the right knee demonstrate needles in the regions of the distal femur and proximal tibia. FL/FL guidance in treatment room IMPRESSION: Fluoroscopy during procedure. Please see procedure report for additional information. Electronically signed by: Efraín Santo MD 06/29/2025 02:39 PM EDT
--- OUTSIDE RECORDS SUMMARY | 2025-06-29 06:18 | XMS_ITS | Clinical Summary ---
Author Organization [facility] Address [address] [place] [address] Care Team Providers Care Pediatric Dental Assistant Name Role Phone Po, Cody Virk MD Primary Care Provider [phone] Allergies No known active allergies Medications Medication [...] age to complete this topic Care Teams Pediatric Dental Assistant Relationship Specialty Start Date End Date Cody Boston MD [address] [place] [address] [address] [facility] [place] [address] PCP - General Internal Medicine 12/24/17
--- OUTSIDE RECORDS SUMMARY | 2025-06-29 06:18 | XMS_ITS | Data Portability ---
Author Organization [place] - [facility], [facility] Address [address] [place] [phone] Care Team Providers Care Impregnator Helper Name Role Phone CRISSY MILES Referring Provider [phone] Assessment No assessment recorded. Plan of Treatment [...] Details Recorded Time Hypertrophy of lingual tonsil 615747716 Active 2024 DERECK HOOPER MD [address] [place] [address], [phone], [facility] 09:05:42 Problem Notes None recorded. Procedures Surgical History Date Name Laterality Status Provider Name and Address Organization Details Recorded Time 01/21/20 25 Fiberoptic Laryngoscopy (Comprehensive) completed DERECK HOOPER MD [address] [place] [address], [phone], [facility] 01/20/2025 15:18:40 Imaging Results None recorded. Procedure [...] ICD10 Code Diagnosis IMO Codes Diagnosis Note [id number] DERECK HOOPER MD [facility] [address] [address] 01/20/2025 14:09:18 01/20/2025 15:57:55 Hypertrophy of lingual tonsil [id number] J35.1 [id number] 84-year-ol d male presents today for evaluation [...] Moore Member ID Guarantor Name 01/26/2025 1 [facility] Saulo Mathews [id number] Saulo Mathews Notes Date Note Type Note [...] time of his visit. DERECK HOOPER MD [address] [place] [address], [phone], [facility] - [facility] 01/24/2025 09:07:49
--- OUTSIDE RECORDS SUMMARY | 2025-06-29 06:18 | XMS_ITS | Clinical Summary ---
Author Organization [employer] Address [address] [facility] 7[address] [place] [address] Care Team Providers Care Instructor Trainer Canine Service Name Role Phone Unavailable Primary Care Provider [...] Next Due Influenza High-dose Quadrivalent Preservative [facility] 05/14/2023,06/23/2022 Influenza Quadrivalent Adjuvanted 05/22/2021 Influenza, High Dose Seasonal, Preservative Free 09/07/2019 Influenza, seasonal, injectable, preservative [facility] 05/10/2020 Pfizer Covid-19 Vaccine 12+ 06/07/2024, [...] to Health Maintenance Insurance [facility] STANDARD [facility] DUAL COMPLETE [facility] DUAL COMPLETE DENTAL - [facility] SCO
== END 2025-06-29 06:17 | disposition home or self-care (01) ==
LOC: CF 06:16
PROVIDERS: Visit Provider Internal Medicine
DX: M25.561 Pain in right knee (principal)
CPT/HCPCS: 64624; J2003

== ENCOUNTER 2025-06-29 12:39 | Outpatient (AMB) | payer OTHER, SELFPAY ==
[2025-06-29 12:45] VITALS: BP 126/66; PULSE 69; RESP 16; O2SAT 96
--- NOTE | 2025-06-29 12:45 | MHC.OFFVIS ---
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 Denies any recent cough, cold, infection, fever or other significant changes in medical history since last office visit. [facility] Medical History Preoperative clearance Annual physical exam Anxiety and depression Tubular adenoma of colon Urinary frequency Arthritis of right knee Blind left eye Bilateral shoulder pain Low back pain Rotator cuff rupture COVID-19 virus infection Obesity (BMI 30-39.9) Vitamin D deficiency Impaired glucose tolerance Hypercholesterolemia Hypertension Dislocation of shoulder, left, closed Erectile dysfunction Surgical History Hx of cataract extraction Hx of colonoscopy H/O prostatectomy H/O left knee surgery History of rhinoplasty History of tonsillectomy S/P rotator cuff repair Family History Father Acute leukemia Mother No problems noted. Social History Household Members: None Housing: Apartment Are you a primary care transition mgr to a significant other at home: No Do you presently have visiting nurse or other home services: No Alcohol intake: former Patient Tobacco Use Status: Never used Tobacco e-Cigarette/Vaping Use: Never Used Second Hand Smoke Exposure: No Advance Directives Date on File: 05/28/23 service: No Current occupational status: retired Cognitive needs: No Hearing needs: No Vision needs: No Physical Exam Vital Signs: Last Vital Signs Pulse 68 06/29/25 13:36 Resp 16 06/29/25 13:36 BP 110/62 06/29/25 13:36 Pulse Ox 95 06/29/25 13:36 Oxygen Delivery Method Room Air 06/29/25 13:36 Office Procedures Details: Genicular Nerve RFL - fluoroscopic guided - RIGHT Knee Superior medial, superior lateral, and inferior medial genicular nerve radiofrequency lesioning After obtaining written consent, pre-procedure blood pressure and heart rate were stable and recorded in the nursing record. The patient was placed supine on the fluoroscopy table. The area overlying the peripheral nerves was widely prepped with chloraprep, allowed to dry and sterilely draped. Using fluoroscopy, the appropriate landmarks were identified. The skin overlying the target was anesthetized with 0.5% lidocaine. A 18 gauge 4 inch radiofrequency needle was advanced under fluoroscopic guidance to the appropriate landmark of each peripheral nerve. Verification using lateral and AP views. Aspiration was negative for heme and synovial fluid. Impedences were verified under 600 ohms. Motor testing (2 Hz) confirmed needle placement at each site within the appropriate voltage thresholds. Each site was injected with 0.5 ml 2% preservative-free lidocaine. Radiofrequency lesioning was performed for 120 seconds at 80 deg Celcius. Each site was then injected with 1 ml 0.5% preservative-free bupivacaine. The needles were removed, skin cleansed and a sterile bandage was applied. The patient tolerated the procedure well and no complications were encountered. Following the procedure the patient's vital signs were stable. The patient was discharged home in good condition with post-procedural instructions. Time Out: Immediately prior to the procedure, the following was verbally confirmed that there is a signed consent form and that the correct patient, planned procedure, site and side are consistent with documentation and that necessary equipment and/or blood products are available prior to the start of the case. Complications: none EBL: <5 cc Additional procedure code (CPT) needed Office Meds lidocaine (PF) 10 mg/mL (1 %) injection solution Performing Provider: Severiano Fritz MD Performing Location: [facility] Administered by: Severiano Fritz MD on 07/03/25 11:11 Dose Route Admin Location Dispensed Lot Number Expiration Date NDC Agency Sales Director 5 mL subcut 5 mL Total Dispensed Waste 5 mL 0 % Assessment & Plan Assessment & Plan (1) Right knee pain: Code(s): M25.561 - Pain in right knee Category: Medical Plan Patient is status post right knee genicular nerves RFL. Patient tolerated procedure well and was discharged home in stable condition with discharge instructions. All questions were answered. We will follow-up via telephone or in clinic to assess response to therapy. A follow-up appointment was made during today's visit. Orders: Orders AMB RFA Radiofrequency Ablation Pain Management 06/29/25 Severiano Fritz MD M25.561 - Pain in right knee FL guidance in treatment room 06/29/25 Zoraida Koch APRN, INTERMODAL OWNER OPERATOR TRUCK DRIVER M25.561 - Pain in right knee Coding Level of Care Code Procedure Only Diagnoses Right knee pain M25.561
[2025-06-29 13:36] VITALS: BP 110/62; PULSE 68; RESP 16; O2SAT 95
--- OUTSIDE RECORDS SUMMARY | 2025-06-29 15:30 | XMS_ITS | Clinical Summary ---
Author Organization [facility] Address [address] [place] [address] Care Team Providers Care Coil Connector Name Role Phone Po, Cody Virk MD Primary Care Provider [phone] Allergies No known active allergies Medications Medication [...] age to complete this topic Care Teams Coil Connector Relationship Specialty Start Date End Date Cody Boston MD [address] [place] [address] [address] [facility] [place] [address] PCP - General Internal Medicine 12/24/17
== END 2025-06-29 13:42 | disposition home or self-care (01) ==
LOC: HO.PMCPRC 12:39
PROVIDERS: PCP Internal Medicine; Visit Provider Internal Medicine
DX: M25.561 Pain in right knee (principal)
CPT/HCPCS: 64624

== ENCOUNTER 2025-07-24 09:51 | Outpatient (AMB) | payer OTHER, SELFPAY ==
[2025-07-24 09:54] VITALS: BP 140/75; PULSE 73; RESP 16; O2SAT 96; BMI 30.4
--- NOTE | 2025-07-24 09:54 | MHC.OFFVIS ---
Vital Signs 07/24/25 09:54 Height 5 ft 8 in Weight 200 lb BMI 30.4 BP 140/75 H Blood Pressure Location Lt brachial Position Sitting Respiration 16 Pulse 73 Pulse Source Pulse Oximeter Pulse Oximetry (%) 96 Oxygen Delivery Method Room Air Intake Visit Reasons: S/P Right genicular RFA Grievance Coordinator Required: No Allergies No Known Allergies Allergy (Mild, Verified 07/24/25 09:55) NKA Medication List - Last Reconciled 07/24/25 by Lilia Bowser LPN acetaminophen (Tylenol) 325 mg PO QID PRN amlodipine 5 mg PO DAILY carboxymethylcellulose sodium 1% (Artificial Tears (carboxymethylcellulose)) 1 drp ophthalmic (eye) TID lisinopril 40 mg PO DAILY metoprolol succinate ER 75 mg (1.5 x 50 mg) PO DAILY 90 days sildenafil (Viagra) 100 mg PO DAILY PRN simvastatin 20 mg PO DAILY HPI HPI S/P Right genicular RFA: Details: History of Present Illness The patient is an 84-year-old individual presenting with knee pain following radiofrequency ablation of the genicular nerves. The procedure was performed to alleviate chronic knee pain, which previously limited the patient's mobility and daily activities. Prior to the procedure, the patient experienced significant pain while walking, necessitating frequent stops during activities such as shopping. The patient reported being unable to walk more than two aisles without needing to rest due to severe pain. Since the procedure, the patient reports more than 50% improvement in pain and mobility. The patient is now able to walk through multiple aisles without needing to rest, indicating a significant improvement in quality of life. However, the patient has experienced leg cramps occurring from the foot to the thigh, particularly from the knee to the thigh, on several occasions since the procedure. These cramps have occurred three to four times and are noted to be a new symptom post-procedure. Additionally, the patient reports numbness in the leg when lying in certain positions, requiring repositioning to alleviate the sensation. Pain Description - Onset: Post-procedure - Quality: Cramping and numbness - Location: From foot to thigh, particularly knee to thigh - Exacerbating factors: Lying in certain positions - Relieving factors: Repositioning Physical Exam - Appears afebrile. - Alert and oriented. - Mood and affect appropriate. - Follows and participates in conversation appropriately. - Knee skin at RFA sites intact. Results Pain Management - Affect: Improved mood due to increased mobility - Analgesia: Over 50% pain relief post-procedure - Activities of Daily Living: Improved ability to shop and walk without frequent stops PFSH Medical History Preoperative clearance Annual physical exam Anxiety and depression Tubular adenoma of colon Urinary frequency Arthritis of right knee Blind left eye Bilateral shoulder pain Low back pain Rotator cuff rupture COVID-19 virus infection Obesity (BMI 30-39.9) Vitamin D deficiency Impaired glucose tolerance Hypercholesterolemia Hypertension Dislocation of shoulder, left, closed Erectile dysfunction Surgical History Hx of cataract extraction Hx of colonoscopy H/O prostatectomy H/O left knee surgery History of rhinoplasty History of tonsillectomy S/P rotator cuff repair Family History Father Acute leukemia Mother No problems noted. Social History Household Members: None Housing: Apartment Are you a primary care center manager to a significant other at home: No Do you presently have visiting nurse or other home services: No Alcohol intake: former Patient Tobacco Use Status: Never used Tobacco e-Cigarette/Vaping Use: Never Used Second Hand Smoke Exposure: No Advance Directives Date on File: 05/28/23 service: No Current occupational status: retired Cognitive needs: No Hearing needs: No Vision needs: No Physical Exam Vital Signs: Last Vital Signs Pulse 73 07/24/25 09:54 Resp 16 07/24/25 09:54 BP 140/75 H 07/24/25 09:54 Pulse Ox 96 07/24/25 09:54 Oxygen Delivery Method Room Air 07/24/25 09:54 BMI result Body Mass Index 30.4 Assessment & Plan Assessment & Plan (1) Right knee pain: Code(s): M25.561 - Pain in right knee Category: Medical Plan Plan Patient was informed and verbally consented to the use of an ambient scribe for clinic note documentation during this visit. 1. Knee Pain - Continue monitoring pain levels and mobility improvements. - Follow-up as needed if pain worsens or mobility decreases. 2. Leg Cramps - Monitor frequency and severity of cramps. - Consider further evaluation if symptoms persist. 3. Numbness In Leg - Advise repositioning to alleviate numbness. - Monitor for changes in sensation. Discussion Notes I discussed with the patient the improvements in mobility and pain relief following the radiofrequency ablation. We reviewed the occurrence of leg cramps and numbness, advising monitoring and repositioning as needed. The patient was advised to follow up if symptoms worsen or new symptoms arise. Patient Instructions - Monitor pain levels and mobility improvements. - Report any worsening of symptoms or new symptoms. - Reposition if numbness occurs to alleviate symptoms. Coding Level of Care Code Est Pt Level 3 (28064) Diagnoses Right knee pain M25.561
--- OUTSIDE RECORDS SUMMARY | 2025-07-24 11:40 | XMS_ITS | Clinical Summary ---
Author Organization [employer] Address [address] [facility] 7[address] [place] [address] Care Team Providers Care Mechanical Ordnance Assembler Name Role Phone Unavailable Primary Care Provider [...] Dates Next Due Influenza High-dose Quadrivalent Preservative [facility] 05/14/2023,06/23/2022 Influenza Quadrivalent Adjuvanted 05/22/2021 Influenza, High Dose Seasonal, Preservative Free 09/07/2019 Influenza, seasonal, injectable, preservative [facility] 05/10/2020 Pfizer Covid-19 Vaccine 12+ 06/07/2024, [...] Most Recently Relevant to Health Maintenance Insurance [facility] STANDARD [facility] DUAL COMPLETE [facility] DUAL COMPLETE DENTAL - [facility] SCO
--- OUTSIDE RECORDS SUMMARY | 2025-07-24 11:40 | XMS_ITS | Clinical Summary ---
Author Organization [facility] Address [address] [place] [address] Care Team Providers Care Harbour Master Name Role Phone Po, Cody Virk MD Primary Care Provider [phone] Allergies No known active allergies Medications Medication [...] age to complete this topic Care Teams Harbour Master Relationship Specialty Start Date End Date Cody Boston MD [address] [place] [address] [address] [facility] [place] [address] PCP - General Internal Medicine 12/24/17
--- OUTSIDE RECORDS SUMMARY | 2025-07-24 11:40 | XMS_ITS | Data Portability ---
Author Organization [place] - [facility], Allergy Address [address] [place] [id number] Care Team Providers Care Nurse Practitioner Per Diem Name Role Phone CRISSY MILES Referring Provider [...] Details Recorded Time Hypertrophy of lingual tonsil [id number] Active 2024 DERECK HOOPER MD [address] [place] [address], [phone], [facility] 09:05:42 Problem Notes None recorded. Procedures Surgical History Date Name Laterality Status Provider Name and Address Organization Details Recorded Time 01/21/20 25 Fiberoptic Laryngoscopy (Comprehensive) completed DERECK HOOPER MD [address] [place] [address], [phone], [facility] 01/20/2025 15:18:40 Imaging Results None recorded. Procedure [...] History Nothing Reported. Medical History Condition Response High Cholesterol Y Hypertension Y Past Encounters Encounter ID Performer Location Encounter Start Date Encounter Closed Date Diagnosis/Indication Diagnosis SNOMED-CT Code Diagnosis ICD10 Code Diagnosis IMO Codes Diagnosis Note [id number] DERECK HOOPER MD [facility] [address] [id number] 01/20/2025 14:09:18 01/20/2025 15:57:55 Hypertrophy of lingual tonsil 189683098 J35.1 [id number] 84-year-ol d male presents today for evaluation [...] Moore Member ID Guarantor Name 01/26/2025 1 [facility] Saulo Mathews [id number] Saulo Mathews Notes Date Note Type Note [...] time of his visit. DERECK HOOPER MD [address] [place] [address], [phone], [facility] - [facility] 01/24/2025 09:07:49
== END 2025-07-24 10:33 | disposition home or self-care (01) ==
LOC: HO.PMC 09:51
PROVIDERS: PCP Internal Medicine; Visit Provider Internal Medicine
DX: M25.561 Pain in right knee (principal)
CPT/HCPCS: 99213

== ENCOUNTER → 2025-07-24 09:51 | Outpatient (BNVA) | payer OTHER, SELFPAY | PROVIDERS: PCP Internal Medicine; Visit Provider Internal Medicine | DX: M25.561 Pain in right knee (principal) | CPT/HCPCS: 99212 ==